=== PATIENT | female | born 1965 | race Caucasian/White ===

== ENCOUNTER → 2019-05-20 10:13 | Outpatient (CLI) | payer OTHER, MEDICARE, SELFPAY ==
--- NOTE | ~2019-05-20 | CT_ITS ---
EXAMINATION: CT sinus wo con DATE: 05/20/2019 10:45 INDICATION: Acute pansinusitis TECHNIQUE: Computed tomography (CT) of the paranasal sinuses was performed without intravenous contra st. The dose-length product (DLP) was 255.24 mGy-cm. Iterative reconstruction was used. COMPARISON: None FINDINGS: There is normal development and pneumatization of the paranasal sinuses. There is mild muco demetrice thickening of the maxillary sinuses, the left sphenoid sinus, and the left anterior ethmoidal air cells. There are bilateral susana bullosae with internal opacification on the left. The bilateral os tiomeatal complexes are patent. Visualized soft tissues are unremarkable. There is moderate to severe spondylosis at C1-2. IMPRESSION: 1. Mild mucosal thickening of the maxillary sinuses, left sphenoid sinus, and left anterior ethmoid a ir cells. 2. Bilateral susana bullosae with internal calcification on the left. Reviewed, dictated and finalized at location A. [employer] IMPRESSION: 1. Mild mucosal thickening of the maxillary sinuses, left sphenoid sinus, and l eft anterior ethmoid air cells. 2. Bilateral susana bullosae with internal calcification on the left.
== END ==
PROVIDERS: Visit Provider Otolaryngology
DX: J01.41 Acute recurrent pansinusitis (principal); R91.8 Other nonspecific abnormal finding of lung field
CPT/HCPCS: 70486

== ENCOUNTER 2020-01-26 01:36 | Outpatient (CLI) | payer MEDICARE, OTHER, SELFPAY ==
[2020-01-27 03:00] LABS: SARS-CoV-2 RNA PCR Negative
== END 2020-01-26 01:37 | disposition home or self-care (01) ==
LOC: ANHCOVIDDT 01:36
PROVIDERS: PCP Internal Medicine; Visit Provider Internal Medicine Gastroenterology
DX: Z01.812 Encounter for preprocedural laboratory examination (principal); Z20.828 Contact with and (suspected) exposure to other viral communicable diseases
CPT/HCPCS: 87635; C9803; U0003

== ENCOUNTER 2020-01-28 01:33 | Day surgery (SDC) | payer MEDICARE, OTHER, SELFPAY ==
[2020-01-24 14:06] VITALS: BMI 39.5
[2020-01-28 09:43] VITALS: BP 154/83; PULSE 91; RESP 18; TEMP 36.3; O2SAT 94
--- NOTE | 2020-01-28 09:54 | WPDGICN ---
Assessment and Plan Assessment and plan (1) Dysphagia: Code(s): R13.10 - Dysphagia, unspecified Status: Acute Assessment and Plan: Patient with ongoing difficulty swallowing. Plan is for EGD to assess more thoroughly. This report follow separately . separate prep limitations will be given subsequently. (2) Morbid obesity with BMI of 40.0-44.9, adult: Code(s): E66.01 - Morbid (severe) obesity due to excess calories; Z68.41 - Body mass index [BMI]40.0-44.9, adult Status: Acute (3) Type 2 diabetes mellitus with hyperglycemia: Code(s): E11.65 - Type 2 diabetes mellitus with hyperglycemia Status: Acute GI Consult Note Consult date/time: 01/28/20 09:54 HPI: Heavenly Su is a 54 year old female seen in evaluation at the request of Dr. Mcelroy. Patient complains of difficulty swallowing. She has a history of sinusitis associated with cough over the last 2 years. She occasionally will cause her voice to be lost. She states that food will catch in the mid substernal portion of the chest. Solids more so than liquids. This is occurred over the last 2 years. She denies any weight loss or bleeding. She denies any history of heartburn. In the past been treated for diabetes. Family history is noncontributory. [facility] Family History Family History Mother Hypertension Family history of rheumatoid arthritis Cerebrovascular accident, Onset Age: 55 Social History Social History Smoking status: Never smoker Alcohol intake: never Substance use: never Substance use type: does not use Living arrangements: with family Gender identity (if verbalized by the patient): Female Sexual Orientation (if Verbalized by the Patient): Straight or Heterosexual Spiritual care concerns: No Meds Home Medications and Allergies Home Medications Medication Instructions Recorded Confirmed Type insulin lispro 100 unit/mL 1 sliding scale dose SUB-Q 03/26/19 01/24/20 History subcutaneous cartridge USEASDIRECTD albuterol sulfate 90 mcg/actuation 2 puff INHALATION Q4H PRN #8.5 gm 04/15/19 01/24/20 Rx aerosol inhaler insulin glargine U-300 conc 300 56 unit SUB-Q DAILY ml 05/05/19 01/24/20 History unit/mL (3 mL) subcutaneous pen amlodipine 10 mg tablet 10 mg PO DAILY #90 tablet 06/21/19 01/24/20 Rx simvastatin 10 mg tablet 10 mg PO DAILY #90 tablet 06/21/19 01/24/20 Rx metformin 1,000 mg tablet 1,000 mg PO BID #180 tablet 08/30/19 01/24/20 Rx fluticasone 250 mcg-salmeterol 50 1 inhalation INHALATION BID #60 09/16/19 01/24/20 Rx mcg/dose blistr powdr for each inhalation glimepiride 4 mg tablet 4 mg PO BID #180 tablet 09/29/19 01/24/20 Rx dapagliflozin [Farxiga] 5 mg PO DAILY 01/24/20 01/24/20 History exenatide microspheres [Bydureon] 2 mg SUBCUT WEEKLY 01/24/20 01/28/20 History ibuprofen 800 mg PO TID PRN 01/24/20 01/24/20 History Allergies Allergy/AdvReac Type Severity Reaction Status Date / Time cefuroxime Allergy Unknown Joint pain Verified 01/28/20 09:41 CEFUROXIME AXETIL AdvReac Mild Joint Pain Uncoded 01/28/20 09:41 Vital Signs Vital Signs - 24 hr 01/28/20 09:43 Temperature 97.3 F L Pulse Rate 91 Respiratory Rate 18 Blood Pressure 154/83 H Pulse Oximetry 94 Exam Narrative: Exam Narrative: Physical exam reveals her to be alert. Vital signs stable. HEENT exam unremarkable. She is anicteric. Lungs are clear to auscultation and percussion. Heart without murmur. Abdomen is obese. Bowel sounds are present soft no localized tenderness. No masses noted. Digital external rectal exam normal.
[2020-01-28] MEDS: LACTATED RINGERS 1,000 ML 150 ML IV CONT (10:03)
--- NOTE | 2020-01-28 10:03 | WPDANESEPPF ---
Anes - Initial Pre Proc Eval Procedure: Operation Date: 01/28/20 10:30 Proposed Procedures p Esophagogastroduodenoscopy - Giovanny Nguyen MD Date/Time: 01/28/20 10:03 Surgeon: Giovanny Nguyen MD Pre Op Diagnosis: Dysphagia Patient Data Age: 54 Gender: F Height: 5 ft 4 in Weight: 108 kg Last Vital Signs Temp 36.3 C L 01/28/20 09:43 Pulse 91 01/28/20 09:43 Resp 18 01/28/20 09:43 BP 154/83 H 01/28/20 09:43 Pulse Ox 94 01/28/20 09:43 Allergies Allergy/AdvReac Type Severity Reaction Status Date / Time cefuroxime Allergy Unknown Joint pain Verified 01/28/20 09:41 CEFUROXIME AXETIL AdvReac Mild Joint Pain Uncoded 01/28/20 09:41 Home Medications Medication Instructions Recorded Confirmed Type insulin lispro 100 unit/mL 1 sliding scale dose SUB-Q 03/26/19 01/24/20 History subcutaneous cartridge USEASDIRECTD albuterol sulfate 90 mcg/actuation 2 puff INHALATION Q4H PRN #8.5 gm 04/15/19 01/24/20 Rx aerosol inhaler insulin glargine U-300 conc 300 56 unit SUB-Q DAILY ml 05/05/19 01/24/20 History unit/mL (3 mL) subcutaneous pen amlodipine 10 mg tablet 10 mg PO DAILY #90 tablet 06/21/19 01/24/20 Rx simvastatin 10 mg tablet 10 mg PO DAILY #90 tablet 06/21/19 01/24/20 Rx metformin 1,000 mg tablet 1,000 mg PO BID #180 tablet 08/30/19 01/24/20 Rx fluticasone 250 mcg-salmeterol 50 1 inhalation INHALATION BID #60 09/16/19 01/24/20 Rx mcg/dose blistr powdr for each inhalation glimepiride 4 mg tablet 4 mg PO BID #180 tablet 09/29/19 01/24/20 Rx dapagliflozin [Farxiga] 5 mg PO DAILY 01/24/20 01/24/20 History exenatide microspheres [Bydureon] 2 mg SUBCUT WEEKLY 01/24/20 01/28/20 History ibuprofen 800 mg PO TID PRN 01/24/20 01/24/20 History Patient hx anesthesia problems: none Family hx anesthesia problems: none PMFSH Family History Family History Mother Hypertension Family history of rheumatoid arthritis Cerebrovascular accident, Onset Age: 55 Social History Social History Smoking status: Never smoker Alcohol intake: never Substance use: never Substance use type: does not use Living arrangements: with family Gender identity (if verbalized by the patient): Female Sexual Orientation (if Verbalized by the Patient): Straight or Heterosexual Spiritual care concerns: No Anes - Eval Final PreProcedure Day of Procedure 01/28/20 10:03 Patient weight: morbidly obese Heart: regular rate and rhythm Lungs: clear to auscultation Airway: Mallampati scale class II Neurological: alert and oriented Last oral intake: >/= 8 hours ASA classification: III Emergent: no Anesthetic plan: proceed Anesthesia type and monitoring: general GIVS and standard monitoring Informed Consent: The patient's anesthetic plan and its attendant risks and benefits were discussed with the patient/family/POA. Questions were solicited and answers provided to the satisfaction of the patient/family/POA.
[2020-01-28 10:04] LABS: Glucose Point of Care 147 (65-105)
[2020-01-28 10:55] VITALS: BP 126/70; PULSE 79; RESP 21; O2SAT 99
[2020-01-28 11:05] VITALS: BP 120/75; PULSE 83; RESP 19; O2SAT 96
[2020-01-28 11:15] VITALS: BP 135/83; PULSE 82; RESP 16; O2SAT 96
[2020-01-28 11:28] LABS: Glucose Point of Care 117 (65-105)
== END 2020-01-28 11:36 | disposition home or self-care (01) ==
PROVIDERS: PCP Internal Medicine; Visit Provider Internal Medicine Gastroenterology
PROC: 0DJ08ZZ Inspection of Upper Intestinal Tract, Via Natural or Artificial Opening Endoscopic (ICD-10-PCS; CPT 43235; principal; 2020-01-28 10:30)
DX: R13.10 Dysphagia, unspecified (principal); E66.01 Morbid (severe) obesity due to excess calories; E11.65 Type 2 diabetes mellitus with hyperglycemia
CPT/HCPCS: 43235; J2704; J7120

== ENCOUNTER 2020-02-09 07:28 | Outpatient (CLI) | payer MEDICARE, OTHER, SELFPAY ==
--- NOTE | ~2020-02-09 | XR_ITS ---
EXAMINATION: XR barium swallow modified DATE: 02/09/2020 08:28 INDICATION: Dysphagia. TECHNIQUE: The patient was given barium-containing material of multiple consistencies to swallow by t gonzalo speech pathologist while I performed fluoroscopy. Fluoroscopy exposure time was 1.2 minutes. The n umber of fluoroscopy images saved to the PACS was 1. Dose-area product was 0.825 Gy-cm^2. FINDINGS: There was no laryngeal penetration or aspiration. IMPRESSION: 1. No laryngeal penetration or aspiration. 2. Please refer to the speech therapy report for recommendations. Reviewed, dictated and finalized at location A. [employer] OPERATOR
--- NOTE | 2020-02-09 08:48 | STOPEVAL ---
MODIFIED BARIUM SWALLOW EVALUATION: Thank you for referring Heavenly Su to [facility].? Attending Provider: Giovanny Nguyen MD * Outpatient Evaluation Start: 02/09/20 08:41 Status: Active Protocol: Document 02/09/20 08:42 BECHERERT (Rec: 02/09/20 08:48 BECHERERT [email or web address]) Therapy Assessment Status Assessment Status Assessment Status Evaluation Outpatient Past Medical History Past Medical History Source of Past Medical History Patient Neurological History Hx Neurological Disorders No Significant History Cardiovascular History Hx Hypercholesterolemia Yes Hx Hypertension Yes Respiratory History Hx Asthma Yes Hx Pneumonia Yes: not recent Gastrointestinal History Hx Gastroesophageal Reflux Disease Yes: ENT rx'd omeprazole Genitourinary History Hx Genitourinary Disorders No Significant History Musculoskeletal History Hx Joint Replacement Yes: BILAT KNEES 2019 Hematological History Hx Hematological Disorders No Significant History Endocrine History Hx Diabetes Yes HEENT History Hx HEENT Disorders No Significant History Integumentary History Hx Skin Disorders No Significant History Reproductive History Hx Reproductive Disorders No Significant History Psychosocial History Hx Psychiatric Disorders No Significant History Pain History History of Any Previous or Ongoing No Significant History Instance of Pain Anesthesia History Hx Anesthesia Reactions No Significant History Pain Assessment Timing of Pain Assessment Timing of Pain Assessment Assessment Self Report Self Report Pain Level 0 Pain Score Pain Score 0: Self Report Modified Barium Swallow Evaluation Recent Swallowing History Reports Dysphagia Yes: choking and solids get stuck Other Factors Impacting Dysphagia None Reported Difficult Consistencies Thin Liquids,Solids Intake Method Prior to Swallow Oral Evaluation Diet Prior to Swallow Evaluation Regular, Level 7 Liquid Consistency Prior to Swallow Thin (0) Evaluation Consistency Thin Uncontrolled 2 Method of Presentation Straw Oral Preparatory Symptoms None Oral Phase Symptoms None Pharyngeal Phase Symptoms Within Functional Limits,Bony Protuberance Severity of Vallecular Residue None - 0% No Residue Severity of Pyriform Sinus Residue None - 0% No Residue 8 Point Laryngeal Penetration-Aspiration Material Does Not Enter Airway Scale Pharyngeal Phase Comments small cervical osteophytes: without effect Cervical/Esophageal Symptoms Within Functional Limits Thin Uncontrolled 1 Method of Presentatio
== END 2020-02-09 07:29 | disposition home or self-care (01) ==
PROVIDERS: PCP Internal Medicine; Visit Provider Internal Medicine Gastroenterology
DX: R13.10 Dysphagia, unspecified (principal)
CPT/HCPCS: 92611

== ENCOUNTER → 2020-12-21 11:24 | Outpatient (CLI) | payer MEDICARE, OTHER, SELFPAY ==
--- NOTE | ~2020-12-21 | XR_ITS ---
XR hip RT 2V w AP pelvis DATE: 12/21/2020 12:00 INDICATION: Right hip pain TECHNIQUE: AP pelvis. AP, lateral and crosstable lateral views of right hip COMPARISON: None FINDINGS: Diffuse osteopenia. Degenerative disc disease at L4-5 and L5-S1. The pubic symphysis and sacroiliac joints are intact. No pelvic fracture or bone destruction is detected. No fracture or dislocation, avascular necrosis or bone destruction of the right hip. IMPRESSION: Osteopenia No pelvic or right hip fracture Degenerative disc disease at L4-5 and L5-S1 Reviewed, dictated and finalized at location B.
== END ==
PROVIDERS: PCP Internal Medicine; Visit Provider Internal Medicine
DX: R10.31 Right lower quadrant pain (principal); M85.89 Other specified disorders of bone density and structure, multiple sites; M51.36 Other intervertebral disc degeneration, lumbar region
CPT/HCPCS: 73502

== ENCOUNTER → 2021-01-08 07:42 | Outpatient (CLI) | payer MEDICARE, OTHER, SELFPAY ==
--- NOTE | ~2021-01-08 | MR_ITS ---
EXAMINATION: MR hip RT wo con DATE: 01/08/2021 09:48 INDICATION: Right hip and groin pain TECHNIQUE: Magnetic resonance imaging (MRI) of the right hip was performed without intravenous contr ast. Sequences included full-field axial PD-weighted FS FSE and T1-weighted FSE, coronal of the pelvi s with PD-weighted FS FSE, small field of view of the right hip with axial PD-weighted FS FSE, sagit rodriguez PD-weighted FS FSE and coronal PD weighted FS FSE. Additional radial T1-weighted FGR oriented ort hogonal to the acetabular rim were obtained for evaluation of the labrum. COMPARISON: Right hip radiographs dated 12/21/2020 FINDINGS: Bones/labrum/cartilage: Alignment is normal. No avascular necrosis or pathologic marrow replacing process. There is marrow e migue surrounding a low signal intensity incomplete insufficiency fracture line at the medial aspect o f the proximal right femur at the inferior margin of the lesser trochanter. No other fractures identi fied. Evaluation of the labrum and cartilage is limited due to poor ocugvf-ss-giwof on the small fiel d-of-view images likely resulting from coil positioning related to patient body habitus. There appear s to be some joint space narrowing with nonuniform partial thickness cartilage loss consistent with l ikely mild to moderate osteoarthritis at the right hip. Mild subarticular cystic changes are seen at the superolateral aspect of the femoral head. Mild lumbar spondylosis. Fluid: Symmetric physiologic amount of fluid within both hip joints. Soft tissues: No asymmetric muscular atrophy in the pelvis and visualized proximal thighs. There is increased fluid signal consistent with left gluteus medius bursitis and bilateral ischial bursitis, left greater robina n right. Mild tendinopathy of the bilateral gluteal and proximal hamstring tendons without discrete t ears. The bilateral iliopsoas tendons are normal.. Limited evaluation of visceral organs of the pelvi s is unremarkable. No pathologically enlarged pelvic/inguinal lymphadenopathy. IMPRESSION: 1. Nondisplaced, incomplete likely insufficiency fracture at the medial aspect of the subtrochanteric proximal right femur. 2. Mild to moderate right hip osteoarthritis. Assessment of the cartilage is limited and of the labru m essentially nondiagnostic due to poor tqxjks-fj-gmiwy on the small pxupz-qe-sllo images which is re lated to patient body habitus 3. Mild left gluteus medius bursitis and bilateral ischial bursitis with mild tendinopathy without di screte tears at the bilateral gluteal and proximal hamstring tendons. Reviewed, dictated and finalized at location A. IMPRESSION: 1. Nondisplaced, incomplete likely insufficiency fracture at the medial aspect of the subtrochanteric proximal right femur. 2. Mild to moderate right hip osteoarthritis. Assessment of the cartilage is li mited and of the labrum essentially nondiagnostic due to poor nivzga-ad-hpnwr o n the small cwtlb-vr-qpzk images which is related to patient body habitus 3. Mild left gluteus medius bursitis and bilateral ischial bursitis with mild t endinopathy without discrete tears at the bilateral gluteal and proximal hamstr ing tendons.
== END ==
PROVIDERS: PCP Internal Medicine; Visit Provider Internal Medicine
DX: M16.11 Unilateral primary osteoarthritis, right hip (principal)
CPT/HCPCS: 73721

== ENCOUNTER → 2021-03-31 08:26 | Outpatient (CLI) | payer MEDICARE, OTHER, SELFPAY ==
[2021-04-01 16:24] LABS: SARS-CoV-2 RNA PCR Negative
== END ==
PROVIDERS: PCP Internal Medicine; Visit Provider Internal Medicine
DX: R68.89 Other general symptoms and signs (principal); Z20.822 Contact with and (suspected) exposure to COVID-19
CPT/HCPCS: C9803; U0003; U0005

== ENCOUNTER → 2021-06-18 08:56 | Outpatient (CLI) | payer MEDICARE, OTHER, SELFPAY ==
[2021-06-18 11:35] LABS: Influenza A QL RT-PCR Negative (Negative); Influenza B QL RT-PCR Negative (Negative); SARS-CoV-2 RNA PCR Negative
== END ==
PROVIDERS: PCP Internal Medicine; Visit Provider Internal Medicine
DX: R68.89 Other general symptoms and signs (principal); R05.9 Cough, unspecified; Z20.822 Contact with and (suspected) exposure to COVID-19
CPT/HCPCS: 87502; C9803; U0003; U0005

== ENCOUNTER → 2021-09-25 13:20 | Outpatient (CLI) | payer MEDICARE, OTHER, SELFPAY ==
--- NOTE | ~2021-09-25 | DEXA_ITS ---
Bone Density Report Name: MAGO MABRY Age: 55 Sex: Female Ethnicity: White Date of : 1965 Indication: postmenopausal; screening for osteoporosis; prior fracture; asthma or emphysema; Referring Provider: BRITTNEY MALDONADO Study: Bone densitometry was performed. Exam Date: September 25, 2021 Accession number: [id number] Bone Density: Region BMD T-score Z-score Classification AP Spine (L1-L4) 1.079 0.3 1.5 Normal Femoral Neck (Left) 0.717 -1.2 0.0 Osteopenia Total Hip (Left) 0.796 -1.2 -0.4 Osteopenia Femoral Neck (Right) 0.677 -1.6 -0.4 Osteopenia Total Hip (Right) 0.754 -1.5 -0.7 Osteopenia Total Hip Mean 0.775 -1.4 -0.6 Osteopenia World Health Organization criteria for BMD impression classify patients as: Normal (T-score at or above -1.0), Osteopenia (T-score between -1.0 and -2.5), or Osteoporosis (T-score at or below -2.5). 10-year Fracture Risk: FRAX not reported because: Prior hip or vertebral fracture Clinical Information Provided by Patient: Have had a previous hip or vertebral fracture Has had a low trauma fracture Has used the following medications: Calcium, MTV Has the following medical conditions: Asthma or Emphysema Patient maximum height was 64 Menopause Age: 44 No regular weight bearing exercise Drinks caffeinated beverages Onset of menses at age 8 Number of children 3 Impression: The patient has low bone mass, based on the Right Femoral Neck T-score. The patient has risk factors, including: previous fracture. Discussion: INCREASED RISK OF FRACTURE DUE TO HISTORY OF FRACTURE. The patient's previous fracture puts the patient at high risk of a future fracture. In untreated patients, the risk of osteoporotic fracture increases approximately two-fold for each 1.0 SD decrease in T-score. Low bone density is not the only risk factor for fracture; also consider factors such as patient's age, frailty or poor health, risk of falling, risk of injury, previous osteoporotic fracture, family history of osteoporosis, cigarette smoking, low body weight, etc. Not everyone with a low trauma fracture has osteoporosis; osteomalacia and other metabolic bone disorders should also be considered. Patients who have osteoporosis should be evaluated for specific diseases and conditions (secondary causes) that may cause or contribute to bone loss and fracture risk. National Osteoporosis Foundation (NOF) recommends pharmacologic intervention for patients with a prior hip or vertebral fracture regardless of BMD T-score. The patient should follow a healthful lifestyle (good nutrition with adequate calcium and vitamin D, and appropriate weight-bearing exercise). Follow-Up: Consider a repeat BMD and Vertebral Fracture Assessment (VFA) exam in 2 years or sooner if medically necessary, to reassess this patient's status
== END ==
PROVIDERS: PCP Internal Medicine; Visit Provider Internal Medicine
DX: Z78.0 Asymptomatic menopausal state (principal); Z87.81 Personal history of (healed) traumatic fracture; M85.852 Other specified disorders of bone density and structure, left thigh; M85.851 Other specified disorders of bone density and structure, right thigh
CPT/HCPCS: 77080

== ENCOUNTER 2022-04-18 01:42 | Day surgery (SDC) | payer MEDICARE, OTHER, SELFPAY ==
[2022-04-03 13:45] VITALS: BMI 43.1
[2022-04-18 06:40] VITALS: BP 130/74; PULSE 93; RESP 16; TEMP 36.1; O2SAT 96; BMI 42.9
[2022-04-18 07:04] LABS: Glucose Point of Care 198 mg/dl (65-105)
[2022-04-18] MEDS: LACTATED RINGERS 1,000 ML 150 ML IV CONT (07:12)
--- NOTE | 2022-04-18 07:23 | PM.HPGS ---
History of Present Illness History of Present Illness Consent: Risks, benefits, and alternatives have been discussed and questions answered. Patient agrees to proceed with procedure. Chief complaint: neoplasm screening Narrative: Heavenly Su is a 56 year old female Presents for screening colonoscopy. Patient's current weight appetite and bowel movements are normal. Patient denies abdominal pain. She has had no bleeding. Family history is noncontributory. Review of Systems Review of Systems: Review of systems noncontributory. PMFSH Past Medical History Medical History DJD of left shoulder Family History Family History Mother Hypertension Family history of rheumatoid arthritis Cerebrovascular accident, Onset Age: 55 Social History Social History Smoking status: Never smoker Alcohol intake: never Substance use: never Substance use type: does not use Lack of Transportation: No Lack of Food: Never True Current Housing: I Have Housing Concerned About Future Housing: Decline to Answer Difficulty Paying Gas/Electric Bills: Decline to Answer Difficulty Paying for Meds: Decline to Answer Currently Unemployed: Decline to Answer Education: Decline to Answer Difficulty w/ Childcare or Family Care: Decline to Answer Living arrangements: with family Gender identity (if verbalized by the patient): Female Sexual Orientation (if Verbalized by the Patient): Straight or Heterosexual Spiritual care concerns: No Meds Home Medications and Allergies Home Medications Medication Instructions Recorded Confirmed Type insulin lispro 100 unit/mL 1 sliding scale dose subcut 03/26/19 04/18/22 History subcutaneous cartridge (Humalog USEASDIRECTD U-100 Insulin) albuterol sulfate 90 mcg/actuation 2 puff inhalation Q4H PRN 04/15/19 04/18/22 Rx aerosol inhaler (ProAir HFA) shortness of breath or wheezing #8.5 grams dapagliflozin 5 mg tablet (Farxiga) 5 mg PO DAILY 01/24/20 04/18/22 History exenatide microspheres 2 mg/0.65 2 mg subcut WEEKLY 01/24/20 04/18/22 History mL subcutaneous pen injector (Bydureon) fluticasone 250 mcg-salmeterol 50 1 inh inhalation BID #60 ea 03/22/21 04/18/22 Rx mcg/dose blistr powdr for inhalation (Advair Diskus) metformin 1,000 mg tablet 1,000 mg PO BID #180 tabs 05/16/21 04/18/22 Rx amlodipine 10 mg tablet 10 mg PO DAILY #90 tabs 05/21/21 04/18/22 Rx simvastatin 10 mg tablet 10 mg PO DAILY #90 tabs 12/18/21 04/18/22 Rx citalopram 40 mg tablet 40 mg PO DAILY #90 tabs 03/04/22 04/18/22 Rx insulin glargine U-300 conc 300 70 unit subcut DAILY 03/29/22 04/18/22 History unit/mL (3 mL) subcutaneous pen (Toujeo Max U-300 SoloStar) aspirin 81 mg tablet,delayed 81 mg PO DAILY 04/03/22 04/18/22 History release ibuprofen 800 mg tablet 800 mg PO TID PRN Pain #270 tabs 04/09/22 04/18/22 Rx Allergies Allergy/AdvReac Type Severity Reaction Status Date / Time cefuroxime Allergy Unknown Joint pain Verified 04/18/22 06:39 Vital Signs Vital Signs - 24 hr 04/18/22 06:40 Temperature 96.9 F L Pulse Rate 93 Respiratory Rate 16 Blood Pressure 130/74 Pulse Oximetry 96 Oxygen Delivery Room Air Exam Narrative: Physical exam reveals patient to be alert. Vital signs stable. HEENT exam is unremarkable. Patient is anicteric. Lungs are clear to auscultation and percussion. Heart is without murmur or extra sounds. Abdomen Is obese. bowel sounds are present soft nontender with no organomegaly. Digital external rectal exam is normal. Assessment and Plan Assessment and plan (1) Encounter for screening colonoscopy: Code(s): Z12.11 - Encounter for screening for malignant neoplasm of colon Status: Acute Assessment and Plan: Patient presents t
--- NOTE | 2022-04-18 07:28 | WPDANESEPPF ---
Anes - Initial Pre Proc Eval Procedure: Operation Date: 04/18/22 08:00 Proposed Procedures p Screening Colonoscopy - Giovanny Nguyen MD Date/Time: 04/18/22 07:28 Surgeon: Giovanny Nguyen MD Pre Op Diagnosis: neoplasm screening Patient Data Age: 56 Gender: F Height: 1.63 m Weight: 113.4 kg Last Vital Signs Temp 96.9 F L 04/18/22 06:40 Pulse 93 04/18/22 06:40 Resp 16 04/18/22 06:40 BP 130/74 04/18/22 06:40 Pulse Ox 96 04/18/22 06:40 O2 Del Method Room Air 04/18/22 06:40 Allergies Allergy/AdvReac Type Severity Reaction Status Date / Time cefuroxime Allergy Unknown Joint pain Verified 04/18/22 06:39 Home Medications Medication Instructions Recorded Confirmed Type insulin lispro 100 unit/mL 1 sliding scale dose subcut 03/26/19 04/18/22 History subcutaneous cartridge (Humalog USEASDIRECTD U-100 Insulin) albuterol sulfate 90 mcg/actuation 2 puff inhalation Q4H PRN 04/15/19 04/18/22 Rx aerosol inhaler (ProAir HFA) shortness of breath or wheezing #8.5 grams dapagliflozin 5 mg tablet (Farxiga) 5 mg PO DAILY 01/24/20 04/18/22 History exenatide microspheres 2 mg/0.65 2 mg subcut WEEKLY 01/24/20 04/18/22 History mL subcutaneous pen injector (Bydureon) fluticasone 250 mcg-salmeterol 50 1 inh inhalation BID #60 ea 03/22/21 04/18/22 Rx mcg/dose blistr powdr for inhalation (Advair Diskus) metformin 1,000 mg tablet 1,000 mg PO BID #180 tabs 05/16/21 04/18/22 Rx amlodipine 10 mg tablet 10 mg PO DAILY #90 tabs 05/21/21 04/18/22 Rx simvastatin 10 mg tablet 10 mg PO DAILY #90 tabs 12/18/21 04/18/22 Rx citalopram 40 mg tablet 40 mg PO DAILY #90 tabs 03/04/22 04/18/22 Rx insulin glargine U-300 conc 300 70 unit subcut DAILY 03/29/22 04/18/22 History unit/mL (3 mL) subcutaneous pen (Toujeo Max U-300 SoloStar) aspirin 81 mg tablet,delayed 81 mg PO DAILY 04/03/22 04/18/22 History release ibuprofen 800 mg tablet 800 mg PO TID PRN Pain #270 tabs 04/09/22 04/18/22 Rx Laboratory Tests 04/18/22 07:01 POC Capillary Glucose 198 mg/dl H mg/dl (65-105) Patient hx anesthesia problems: none Family hx anesthesia problems: none Results Review: All pre-operative results and documents have been reviewed as part of the pre-operative evaluation. PMFSH Past Medical History Medical History DJD of left shoulder Family History Family History Mother Hypertension Family history of rheumatoid arthritis Cerebrovascular accident, Onset Age: 55 Social History Social History Smoking status: Never smoker Alcohol intake: never Substance use: never Substance use type: does not use Lack of Transportation: No Lack of Food: Never True Current Housing: I Have Housing Concerned About Future Housing: Decline to Answer Difficulty Paying Gas/Electric Bills: Decline to Answer Difficulty Paying for Meds: Decline to Answer Currently Unemployed: Decline to Answer Education: Decline to Answer Difficulty w/ Childcare or Family Care: Decline to Answer Living arrangements: with family Gender identity (if verbalized by the patient): Female Sexual Orientation (if Verbalized by the Patient): Straight or Heterosexual Spiritual care concerns: No Anes - Eval Final PreProcedure Day of Procedure 04/18/22 07:28 Patient weight: morbidly obese Heart: regular rate and rhythm Lungs: clear to auscultation Airway: Mallampati scale class II Neurological: alert and oriented Last oral intake: >/= 8 hours ASA classification: III Emergent: no Anesthetic plan: proceed Anesthesia type and monitoring: general GIVS and standard monitoring Results Review: All pre-operative results and documents have been reviewed as part of the pre-operative evaluation. Informed Consent: The patient'
[2022-04-18] MEDS: SIMETHICONE ORAL SUSPENSION 20 MG/0.3 ML 30 ML BOTTLE 0.6 ML IRRIGATION (07:59)
[2022-04-18 08:17] VITALS: BP 135/61; PULSE 83; RESP 24; O2SAT 96
[2022-04-18 08:27] VITALS: BP 138/69; PULSE 86; RESP 17; O2SAT 96
[2022-04-18 08:31] LABS: Glucose Point of Care 181 mg/dl (65-105)
[2022-04-18 08:37] VITALS: BP 135/73; PULSE 82; RESP 23; O2SAT 96
== END 2022-04-18 08:47 | disposition home or self-care (01) ==
PROVIDERS: PCP Family Medicine; Visit Provider Internal Medicine Gastroenterology
PROC: 0DJD8ZZ Inspection of Lower Intestinal Tract, Via Natural or Artificial Opening Endoscopic (ICD-10-PCS; CPT 45378; principal; 2022-04-18 08:00)
DX: Z12.11 Encounter for screening for malignant neoplasm of colon (principal); D12.2 Benign neoplasm of ascending colon; Z79.51 Long term (current) use of inhaled steroids; Z79.4 Long term (current) use of insulin; Z79.84 Long term (current) use of oral hypoglycemic drugs; Z79.82 Long term (current) use of aspirin; E66.01 Morbid (severe) obesity due to excess calories; Z68.41 Body mass index [BMI] 40.0-44.9, adult
CPT/HCPCS: 45385; 82948; 88305; J2704; J7120

== ENCOUNTER 2022-04-19 13:50 | Outpatient (CLI) | payer MEDICARE, OTHER, SELFPAY ==
--- NOTE | ~2022-04-19 | MM_ITS ---
EXAMINATION: MM screening jose d BI w roberto carlos HISTORY: Screening TECHNIQUE: Craniocaudal and mediolateral oblique 3-D tomosynthesis images were obtained and synthetic 2-D images were generated. CAD analysis was submitted and interpreted. COMPARISON: No prior mammogram is available for comparison at this institution. BREAST PARENCHYMAL COMPOSITION: Breast composed of scattered areas of fibroglandular density FINDINGS: There is a benign partially calcified mass in the upper outer quadrant of the right breast. There is a small focal 3 mm mass in the upper outer quadrant of the left breast anteriorly. There ar e no suspicious calcifications or architectural distortion. IMPRESSION: 1. Small 3 mm left breast mass, upper outer quadrant. 2. Additional mammographic views and possible breast ultrasound are recommended. BI-RADS Category 0: Incomplete: Needs additional imaging evaluation. Reviewed, dictated and finalized at location A. NG SCRUBBER IMPRESSION: 1. Small 3 mm left breast mass, upper outer quadrant. 2. Additional mammographic views and possible breast ultrasound are recommended . BI-RADS Category 0: Incomplete: Needs additional imaging evaluation.
== END 2022-04-19 13:51 | disposition home or self-care (01) ==
LOC: ANHIMG 13:52
PROVIDERS: PCP Family Medicine; Visit Provider Family Medicine
DX: Z12.31 Encounter for screening mammogram for malignant neoplasm of breast (principal); R92.8 Other abnormal and inconclusive findings on diagnostic imaging of breast
CPT/HCPCS: 77063; 77067

== ENCOUNTER 2022-05-09 11:14 | Outpatient (CLI) | payer MEDICARE, OTHER, SELFPAY ==
--- NOTE | ~2022-05-09 | MM_ITS ---
EXAMINATION: MM diagnostic jose d LT w roberto carlos HISTORY: 3 mm left breast mass reported in upper outer quadrant on 04/19/2022 screening mammogram TECHNIQUE: Additional full field ML and spot ML O left CC and rolled medial and rolled lateral CC 3-D tomosynthesis images of the left breast were performed and synthetic 2-D images were generated. CAD analysis was submitted and interpreted. COMPARISON: 04/19/2021 bilateral screening mammogram FINDINGS: The previously suggested 3 mm mass is not definitively confirmed on these supplemental view s 6 month follow-up diagnostic left mammogram is recommended. IMPRESSION: 1. No definite reproducible mass 2. 6 month follow-up diagnostic left mammogram is recommended BI-RADS category 3, probably benign findings. Reviewed, dictated and finalized at location A. ELER HEAD
== END 2022-05-09 11:15 | disposition home or self-care (01) ==
PROVIDERS: PCP Family Medicine; Visit Provider Family Medicine
DX: R92.8 Other abnormal and inconclusive findings on diagnostic imaging of breast (principal)
CPT/HCPCS: 77061; 77065; G0279

== ENCOUNTER 2022-11-07 11:38 | Outpatient (CLI) | payer MEDICARE, OTHER, SELFPAY ==
--- NOTE | ~2022-11-07 | MMUS_ITS ---
EXAMINATION: MM diagnostic jose d LT w roberto carlos, US breast LT limited HISTORY: Follow-up left breast asymmetry TECHNIQUE: Additional 3-D tomosynthesis images of the left breast were performed and synthetic 2-D im ages were generated. CAD analysis was submitted and interpreted. High resolution Limited left breast ultrasound was performed. COMPARISON: Comparison to multiple prior studies sequentially, with oldest reviewed study dated 04/19. BREAST PARENCHYMAL COMPOSITION: Breast composition is almost entirely fatty FINDINGS: MAMMOGRAPHIC FINDINGS: There are no suspicious masses, calcifications or architectural distortion in the left breast to sugg est malignancy. ULTRASOUND: Limited left breast ultrasound: Normal heterogeneous echotexture without focal solid or cystic mass. IMPRESSION: 1. No evidence for malignancy in the left breast. 2. Routine yearly screening mammogram and regular clinical breast examination are recommended. BI-RADS Category 1: Negative Reviewed, dictated and finalized at location A. IMPRESSION: 1. No evidence for malignancy in the left breast. 2. Routine yearly screening mammogram and regular clinical breast examination a re recommended. BI-RADS Category 1: Negative
== END 2022-11-07 11:39 | disposition home or self-care (01) ==
LOC: ANHIMG 11:39
PROVIDERS: PCP Family Medicine; Visit Provider Family Medicine
DX: R92.8 Other abnormal and inconclusive findings on diagnostic imaging of breast (principal)
CPT/HCPCS: 76642; 77061; 77065; G0279

== ENCOUNTER 2023-03-28 09:25 | Outpatient (CLI) | payer MEDICARE, OTHER, SELFPAY ==
[2023-03-28 19:45] LABS: Anion Gap 8 mmol/L (8-16); Blood Urea Nitrogen 23 mg/dL (7-17); Calcium 9.5 mg/dL (8.4-10.2); Carbon Dioxide 28 mmol/L (22-30); Chloride 101 mmol/L (98-107); Estimated Glomerular Filt Rate > 60; Glucose 154 mg/dL (65-110); Potassium 4.5 mmol/L (3.4-5.0); Sodium 137 mmol/L (137-145)
== END 2023-03-28 09:26 | disposition home or self-care (01) ==
LOC: ANHGOSHLAB 09:26
PROVIDERS: PCP Family Medicine; Visit Provider Family Medicine
DX: Z13.228 Encounter for screening for other metabolic disorders (principal)
CPT/HCPCS: 36415; 80048

== ENCOUNTER 2023-05-12 06:41 | Outpatient (CLI) | payer MEDICARE, OTHER, SELFPAY ==
--- NOTE | ~2023-05-12 | XR_ITS ---
EXAMINATION: [facility] scan, XR foot LT min 3V DATE: 05/12/2023 14:21 INDICATION: Osteomyelitis at the left great toe COMPARISON: No prior imaging for comparison TECHNIQUE: 1. 20 mCi mCi Tc-99m Ceretec was administered intravenously. Delayed scintigrams of the bilateral fee t and ankles were obtained in the dorsal, plantar and left and right projections. 2. Dorsal plantar, lateral and 2 oblique views of the left foot and a cone-down lateral view of the l eft great toe were obtained FINDINGS: There is increased uptake in the region of the left great toe on the scintigraphic images. Minimally displaced comminuted intra-articular fracture at the base of the left first distal phalanx on the daren in radiographs. There is increased lucency with suggestion of some osteolysis along the distal side o f the fracture plane which would also be consistent with osteomyelitis. Otherwise normal alignment th roughout the remainder of the foot. No other fractures identified. There is mild polyarticular osteoa rthritis involving multiple joints throughout the left foot. There is soft tissue swelling about the great toe. No soft tissue gas or radiopaque foreign bodies. Moderate-sized plantar calcaneus spur and small enthesopathic ossicle at the proximal plantar aponeurosis. There are photopenic defects on the scintigraphic images of the contralateral right foot in the region of the toes suggesting prior toe amputations. IMPRESSION: 1: Comminuted intra-articular fracture the base of the left first distal phalanx with suggestion of s ome osteolysis along the fracture plane and with corresponding increased Ceretec activity consistent with osteomyelitis. Reviewed, dictated and finalized at location A. [employer] INSTRUCTOR IMPRESSION: 1: Comminuted intra-articular fracture the base of the left first distal phalan x with suggestion of some osteolysis along the fracture plane and with correspo nding increased Ceretec activity consistent with osteomyelitis.
== END 2023-05-12 06:42 | disposition home or self-care (01) ==
PROVIDERS: PCP Family Medicine; Visit Provider Podiatrist Foot & Ankle Surgery
DX: S92.422A Displaced fracture of distal phalanx of left great toe, initial encounter for closed fracture (principal); M86.9 Osteomyelitis, unspecified; X58.XXXA Exposure to other specified factors, initial encounter
CPT/HCPCS: 73630; 78800; A9521

== ENCOUNTER 2023-06-03 08:07 | Outpatient (CLI) | payer MEDICARE, OTHER, SELFPAY ==
[2023-06-03 08:54] LABS: Anion Gap 4 mmol/L (8-16); Blood Urea Nitrogen 28 mg/dL (7-17); Calcium 9.9 mg/dL (8.4-10.2); Carbon Dioxide 31 mmol/L (22-30); Chloride 102 mmol/L (98-107); Estimated Glomerular Filt Rate > 60; Glucose 217 mg/dL (65-110); Potassium 4.8 mmol/L (3.4-5.0); Sodium 137 mmol/L (137-145)
== END 2023-06-03 08:08 | disposition home or self-care (01) ==
PROVIDERS: Anesthesiology; PCP Family Medicine; Visit Provider Podiatrist Foot & Ankle Surgery
DX: E11.65 Type 2 diabetes mellitus with hyperglycemia (principal); Z01.818 Encounter for other preprocedural examination
CPT/HCPCS: 36415; 80048

== ENCOUNTER 2023-06-06 01:08 | Day surgery (SDC) | payer MEDICARE, OTHER, SELFPAY ==
[2023-06-02 12:17] VITALS: BMI 43.2
--- NOTE | 2023-06-02 12:23 | PC.NURSE ---
Report to the Outpatient Waiting Room, entrance under the green pavilion located off [facility], at time 9:30 on date 06/06/23. Planned Procedure Time: 11:30. Time changes happen often and if your time is changed the preop area will call you the afternoon before. - You and your visitor will be asked to self-screen and do not enter if you have any COVID symptoms. - A mask is optional within the hospital at this time. Patients may have clear liquids (water, carbonated beverages, clear teas, apple juice) until 3 hours prior to surgery (8:30) with a maximum of 20 ounces. - No food from midnight until time of surgery Take the following medications with a SIP of water the morning of surgery: INHALER(S), AMLODIPINE, CITALOPRAM, DOXYCYCLINE, 1/2 AM DOSE OF INSULIN PLEASE CALL [phone] FRIDAY MORNING WITH ANY QUESTIONS OR CONCERNS REGARDING BLOOD SUGAR DO NOT STOP ANY OF YOUR OTHER PRESCRIPTION MEDICATIONS PRIOR TO SURGERY ?EXCEPT THE FOLLOWING Medications to discontinue per physician: ASPIRIN, IBUPROFEN Date to take last dose: PER DR. TSAI Please no make-up, nail egyptian, hairspray, perfume, deodorant, or body powder the day of surgery. No jewelry (including any body piercings) or valuables the day of surgery, leave them at home. Please take a shower or bath the night before, or the morning of, surgery with an antibacterial soap. Wear comfortable, loose fitting clothing. - Jewelry must be removed prior to entering the operating room. Rings and piercings that are not removed may be cut off. - The hospital will not accept responsibility for valuables. - Please leave all valuables, including medications, at home the day of surgery. If you are going home after surgery, a licensed sales warehouse driver must drive you home. - NO public transportation without another adult if you receive anesthesia. - We recommend that an adult stay with you for 24 hours following discharge. - We also recommend that you do not drive, make important decision, drink alcoholic beverages, or take any drugs that were not prescribed by your health care provider for at least 24 hours after your discharge time. Follow any additional instructions given to you from your surgeon. If you or anyone in your household have experienced Covid symptoms in the past week, please notify your surgeon or the nurse liaison at the phone number below for possible testing. Telephone instructions given to LORIN FITZGERALD and asked if any additional questions and then verbalized understanding. Patient advised to call surgeon office or pre surgery nurse liaison [phone] if any additional questions.
--- NOTE | 2023-06-05 14:12 | WPDANESEPPF ---
Anes - Initial Pre Proc Eval Procedure: Operation Date: 06/06/23 11:30 Proposed Procedures p Partial Amputation of Left Hallux - Zander Bazzi JR, MD Date/Time: 06/05/23 14:12 Surgeon: Zander Bazzi JR, MD Pre Op Diagnosis: osteomyelitis left hallux Patient Data Age: 57 Gender: F Height: 1.63 m Weight: 114.3 kg Allergies Allergy/AdvReac Type Severity Reaction Status Date / Time cefuroxime Allergy Unknown Joint pain Verified 06/02/23 12:12 Home Medications Medication Instructions Recorded Confirmed Type albuterol sulfate 90 mcg/actuation 2 puff inhalation Q4H PRN 04/15/19 06/02/23 Rx aerosol inhaler (ProAir HFA) shortness of breath or wheezing #8.5 grams dapagliflozin propanediol 5 mg 5 mg PO DAILY 01/24/20 06/06/23 History tablet (Farxiga) citalopram 40 mg tablet 40 mg PO DAILY #90 tabs 03/04/22 06/06/23 Rx insulin glargine U-300 conc 300 40 unit subcut DAILY 03/29/22 06/06/23 History unit/mL (3 mL) subcutaneous pen (Toujeo Max U-300 SoloStar) aspirin 81 mg tablet,delayed 81 mg PO DAILY 04/03/22 06/06/23 History release simvastatin 10 mg tablet 10 mg PO DAILY #90 tabs 10/07/22 06/06/23 Rx ibuprofen 800 mg tablet 800 mg PO TID PRN Pain #270 tabs 01/07/23 06/06/23 Rx doxycycline hyclate 100 mg capsule 100 mg PO BID 06/02/23 06/06/23 History tirzepatide 5 mg/0.5 mL 5 mg subcut WEEKLY 06/02/23 06/06/23 History subcutaneous pen injector (Mounjaro) amlodipine 10 mg tablet 10 mg PO DAILY #90 tabs 06/04/23 06/06/23 Rx insulin lispro-aabc 100 unit/mL See Rx Instructions .Route .COMPLEX 06/06/23 06/06/23 History subcutaneous solution (Lyumjev U-100 Insulin) Patient hx anesthesia problems: post op nausea/vomiting Family hx anesthesia problems: none Results Review: All pre-operative results and documents have been reviewed as part of the pre-operative evaluation. [facility] Past Medical History Medical History (Updated 06/05/23 @ 14:14 by Topher Shaffer DO) Diabetes type 2, controlled DJD of left shoulder GERD (gastroesophageal reflux disease) Hyperlipidemia Hypertension Osteoarthritis Osteomyelitis Right hip pain Family History Family History Mother Hypertension Family history of rheumatoid arthritis Cerebrovascular accident, Onset Age: 55 Social History Social History Smoking status: Never smoker Alcohol intake: never Substance use: never Substance use type: does not use Lack of Transportation: No Lack of Food: Never True Current Housing: I Have Housing Concerned About Future Housing: Decline to Answer Difficulty Paying Gas/Electric Bills: Decline to Answer Difficulty Paying for Meds: Decline to Answer Currently Unemployed: Decline to Answer Education: Decline to Answer Difficulty w/ Childcare or Family Care: Decline to Answer Living arrangements: with family Gender identity (if verbalized by the patient): Female Sexual Orientation (if Verbalized by the Patient): Straight or Heterosexual Spiritual care concerns: No Anes - Eval Final PreProcedure Day of Procedure 06/05/23 14:12 Patient weight: morbidly obese Heart: regular rate and rhythm Lungs: clear to auscultation Airway: Mallampati scale class II Neurological: alert and oriented Last oral intake: >/= 8 hours ASA classification: III Emergent: no Anesthetic plan: proceed Anesthesia type and monitoring: general GIVS and standard monitoring Results Review: All pre-operative results and documents have been reviewed as part of the pre-operative evaluation. Informed Consent: The patient's anesthetic plan and its attendant risks and benefits were discussed with the patient/family/POA. Questions were solicited and answers provided to the satisfaction of the patient/family/POA.
--- NOTE | 2023-06-06 07:14 | WPDHPUPDATE1 ---
History and Physical Update Update Date/Time: 06/06/23 07:14 History and Physical has been reviewed, including an updated exam of the patient. There are NO changes in the patient's condition. Risks, benefits, and alternatives have been discussed and questions answered. Patient agrees to proceed with procedure.
[2023-06-06 09:37] LABS: Glucose Point of Care 160 mg/dl (65-105)
[2023-06-06 09:43] VITALS: BP 149/72; PULSE 83; RESP 14; TEMP 36.1; O2SAT 98
[2023-06-06 09:44] VITALS: BMI 43.1
[2023-06-06] MEDS: LACTATED RINGERS 1,000 ML 30 ML IV CONT (10:17)
[2023-06-06] MEDS: CLINDAMYCIN 600 MG/D5W 50 ML 600 MG/50 ML PIGGYBACK 100 MG IVPB (11:32)
[2023-06-06] MEDS: BUPivacaine HCL 0.5% 10 ML AMP INFILTRATE (11:51)
[2023-06-06] MEDS: LIDOCAINE HCL 2% LOCAL INJ 20 ML VIAL 10 ML INFILTRATE (11:51)
[2023-06-06] MEDS: KETOROLAC 15 MG/ML VIAL (*BKC) IV PUSH (12:00)
--- NOTE | 2023-06-06 12:02 | P.OP_ITS ---
Procedure Note - Detailed Date of Procedure 06/06/23 Pre-op Diagnosis Osteomyelitis left hallux Post-op Diagnosis Same Procedure Performed Partial amputation left hallux Surgeon Zander Bazzi JR, DPM Anesthesia MAC and Local Indications Chronic osteomyelitis left hallux Description of Procedure Under mild sedation, the patient was brought to the operating room, placed on the operating table in the supine position. A pneumatic ankle tourniquet was placed about the patient's ankle. Following general anesthesia, I performed a proximal Delacruz Block about the proximal first metatarsal. The foot was then scrubbed, prepped, and draped in the usual aseptic manner. An Esmarch bandage was then used to examine the patient's foot and pneumatic ankle tourniquet was then inflated. Surgery began in the following manner. Attention was directed to the dorsal distal aspect of the hallux where the patient had an edematous erythematous digit. Two convex converging incisions were made about the interphalangeal joint of the hallux. The incision was continued deep down through the subcutaneous tissues using sharp and blunt dissection. All bleeders were cauterized as necessary. The distal hallux was disarticulated at the interphalangeal joint and sent for g ross and histopathology. Next, I used a sagittal bone saw to resect the distal half of the proximal phalanx. In order to allow function of the base of the proximal phalanx with the tendinous insertions. The distal hallux was sent for gross and histopathology. Discoloaration and dystrophy was noted to the base of the distal phalanx. The remaining bone and tissue was healthy and bleeding. The wound site was then flushed with copious amounts of sterile saline. Next, the periosteum and capsular structures overlying the distal hallux was reapproximated with 3-0 Vicryl. Next, the skin was reapproximated and coapted utilizing 4-0 Prolene in simple and horizontal interrupted suture fashion technique. Upon completion of the procedure, the incision was dressed with Adaptic, 4 x 4's, Kerlix, and Coban. The pneumatic ankle tourniquet was then deflated and a prompt hyperemic response noted to all remaining digits of the foot and the distal aspect of the stump of the partially amputated hallux. A surgical shoe was then applied. The patient did very well with the procedure and the anesthesia. The patient was transferred to the recovery room with vital signs stable and vascular status intact to all remaining toes of the affected foot. Following a period of postoperative monitoring, the patient will be discharged home on the following written and oral postoperative instructions: 1. Keep the dressing clean, dry, and intact. Use a cast protector bag with showers. 2. The patient should use a surgical shoe for ambulation postoperatively. 3. The patient should be on bedrest with bathroom privileges and elevate the affected foot when at rest. 4. The patient to contact Dr. Bazzi for all postop care and if any problems arise. 5. Prescriptions were written for Percocet 5/325 dispensed 40 to be taken 1 p.o. q.4 to 6 hours as needed for severe pain. Estimated Blood Loss 1 Drains No Packing No Pathology Yes Complications No immediate complications Condition Stable Disposition Same day
[2023-06-06 12:13] VITALS: BP 121/68; PULSE 73; RESP 14; O2SAT 94
[2023-06-06 12:37] LABS: Glucose Point of Care 117 mg/dl (65-105)
[2023-06-06 12:40] VITALS: BP 143/68; PULSE 76; RESP 14; O2SAT 97
[2023-06-06 13:10] VITALS: BP 135/68; PULSE 72; RESP 14
--- NOTE | 2023-07-31 13:51 | PM.OP ---
Procedure Note - Brief Procedure Note - Brief Date of procedure: 06/30/23 Diabetic ulceration left second digit with cellulitis secondary to a claw toe deformity Procedure performed: Percutaneous flexor tenotomy second digit left foot Surgeon: Zander Bazzi JR, DPM Findings: Full thickness tissue loss to distal second digit left foot with sagittal plane contrature noted to the second digit Description of procedure: I cleaned the affected area with Betadine. Anesthetized the digit with 2% Lidocaine plain. I utilized a 6100 blade to perform a percutaneous incision along the plantar aspect of the second digit proximal to the proximal interphalangeal joint. I released the long flexor tendon. I reapproximated the incision with 4.0 Prolene in simple interrupted suture fashion technique. Immediate reduction of the contracture noted to the second digit was noted. I dressed with 4x4 gauze, Kerlix roll and skin tape. Implants: None Drains: No Packing: No Pathology: None sent Complications: No immediate complications Condition: Stable
== END 2023-06-06 13:26 | disposition home or self-care (01) ==
PROVIDERS: PCP Family Medicine; Visit Provider Podiatrist Foot & Ankle Surgery
PROC: (CPT 28825; principal; 2023-06-06 11:30)
DX: E11.69 Type 2 diabetes mellitus with other specified complication (principal); M86.672 Other chronic osteomyelitis, left ankle and foot; I10 Essential (primary) hypertension; E78.5 Hyperlipidemia, unspecified; K21.9 Gastro-esophageal reflux disease without esophagitis; E66.01 Morbid (severe) obesity due to excess calories; Z68.41 Body mass index [BMI] 40.0-44.9, adult; Z79.51 Long term (current) use of inhaled steroids; Z79.84 Long term (current) use of oral hypoglycemic drugs; Z79.4 Long term (current) use of insulin; Z79.85 Long-term (current) use of injectable non-insulin antidiabetic drugs
CPT/HCPCS: 28825; 82948; 88305; 88311; J1885; J2250; J3010; J7120

== ENCOUNTER 2023-06-28 16:42 | Inpatient (IN) | payer MEDICARE, OTHER, SELFPAY ==
--- NOTE | ~2023-06-28 | XR_ITS ---
EXAM: XR foot LT min 3V DATE: 06/28/2023 17:32 HISTORY: osteomyelitis?, 2ND TOE SWELLING/REDNESS . COMPARISON: 05/12/2023. FINDINGS: Normal mineralization. Status post partial first toe amputation. No fracture or dislocatio n. No lytic or blastic lesion. Moderate midfoot degenerative changes. Mild Achilles and moderate plan tar enthesopathy. No erosion or periosteal change. Soft tissue swelling over the first toe stump and second digit. IMPRESSION: No acute osseous finding in the left foot. Reviewed, dictated and finalized at location K.
--- NOTE | ~2023-06-28 | US_ITS ---
EXAMINATION: US venous doppler [facility] DATE: 06/28/2023 18:13 INDICATION: edema, post op . TECHNIQUE: Grayscale images without and with compression and Doppler images of the left lower extremi ty veins were obtained. COMPARISON: None FINDINGS: The left common femoral vein, profunda (deep) femoral vein, femoral vein, popliteal vein, peroneal v ein, posterior tibial veins, gastrocnemius vein, and greater saphenous vein are patent. IMPRESSION: Patent left lower extremity veins. No evidence of deep venous thrombosis. Reviewed, dictated and finalized at location K.
[2023-06-28 16:46] VITALS: BP 135/65; PULSE 93; RESP 18; TEMP 36.6; O2SAT 97
--- NOTE | 2023-06-28 17:23 | ED.WOUNDLAC ---
HPI - Wound/Laceration General Chief Complaint: Wound/Laceration <Alma Gordon PA-C - Last Filed: 06/28/23 18:36> Stated Complaint: wound to foot <Alma Gordon PA-C - Last Filed: 06/28/23 18:36> Time Seen by Provider: 06/28/23 17:06 <Alma Gordon PA-C - Last Filed: 06/28/23 18:36> History of Present Illness HPI narrative: 57-year-old female with a history of hypertension, dyslipidemia, insulin-dependent type 2 diabetes presents to emergency department for concerns for Shoaib infection to her right foot. The patient underwent a partial amputation of the left hallux with Dr. Bazzi on 06/06/2023 for chronic osteomyelitis with this area. States she is scheduled to have sutures out of foot in the next couple days, however today when she is changing her dressing she noticed increased inflammation and redness surrounding her great toe and 2nd toe which prompted her to come to the ER. She also states that she has felt feverish the past couple of days including having chills and body aches. She has not recorded her temperature. She reports no swelling in her left leg and her calf with associated redness and pain. States her glucose at home is normally less than 200, however the past few days it has been increased to 270. She denies nausea or vomiting, abdominal pain or other concerning symptoms. <Alma Gordon PA-C - Last Filed: 06/28/23 18:36> Related Data Home Medications: Home Medications Medication Instructions Recorded Confirmed aspirin 81 mg tablet,delayed 81 mg PO DAILY 04/03/22 06/28/23 release doxycycline hyclate 100 mg capsule 100 mg PO BID 06/02/23 06/28/23 tirzepatide 5 mg/0.5 mL 5 mg subcut WEEKLY 06/02/23 06/28/23 subcutaneous pen injector (Mounjaro) insulin lispro-aabc 100 unit/mL See Rx Instructions .Route .COMPLEX 06/06/23 06/28/23 subcutaneous solution (Lyumjev U-100 Insulin) insulin glargine U-300 conc 300 50 unit subcut DAILY 06/28/23 06/28/23 unit/mL (1.5 mL) subcutaneous pen (Toujeo SoloStar U-300 Insulin) <Alma Gordon PA-C - Last Filed: 06/28/23 18:36> Allergies/Adverse Reactions: Allergies Allergy/AdvReac Type Severity Reaction Status Date / Time cefuroxime Allergy Unknown Joint pain Verified 06/28/23 17:13 <Alma Gordon PA-C - Last Filed: 06/28/23 18:36> Review of Systems Review of Systems: CONSTITUTIONAL: Denies fever, chills, or sweats. EYES: Denies visual changes, redness, or discharge. ENT: Denies rhinorrhea, congestion, sore throat, or otalgia. CARDIOVASCULAR: Denies chest pain, palpitations, or edema. RESPIRATORY: Denies cough or dyspnea. GASTROINTESTINAL: Denies abdominal pain, nausea, vomiting, or diarrhea. GENITOURINARY: Denies dysuria or hematuria. SKIN: See HPI MUSCULOSKELETAL: Denies back pain, joint pain, or myalgia. NEUROLOGIC: Denies headache, numbness, or weakness. PSYCHIATRIC: Denies anxiety or depression. <Alma Gordon PA-C - Last Filed: 06/28/23 18:36> [facility] Past Medical History Medical History: Medical History Diabetes type 2, controlled DJD of left shoulder GERD (gastroesophageal reflux disease) Hyperlipidemia Hypertension Osteoarthritis Osteomyelitis Right hip pain <Alma Gordon PA-C - Last Filed: 06/28/23 18:36> Family History Family History: Family History Mother Hypertension Family history of rheumatoid arthritis Cerebrovascular accident, Onset Age: 55 <Alma Gordon PA-C - Last Filed: 06/28/23 18:36> Social History Social History: Social History Smoking status: Never smoker Alcohol intake: never Substance use: never Substance use type: does not use Do You Feel Safe in your Home?: Yes Lack of Transportation: No Lack of Food: Never True Current Housing: I Have Housing Concerned About Future Housing: Decline to Answer Difficulty Paying Gas/Electric Bills: Decline to Answer Difficulty Paying for Meds: Decline to Answer Currently Unemployed: Decline to Answer Education: Decline to Answer Difficulty w/ Childcare or Family Care: Decline to Answer Living arrangements: with family Gender identity (if verbalized by the patient): Female Sexual Orientation (if Verbalized by the Patient): Straight or Heterosexual Spiritual care concerns: No <Alma Gordon PA-C - Last Filed: 06/28/23 18:36> Exam Narrative: GENERAL: Well-appearing, well-nourished, and in no acute distress. HEAD: Normocephalic, atraumatic. EYES: PERRLA and EOMI. ENT: Nares clear, no rhinorrhea or epistaxis. Mucous membranes moist. NECK: Supple. CHEST: Clear to auscultation. No respiratory distress. HEART: Regular rate and rhythm. No murmur heard. Normal peripheral pulses. ABDOMEN: Soft, nontender, nondistended, normal active bowel sounds. EXTREMITIES: LLE: Great toe amputation with stitches in place to the distal aspect of the stump and surrounding healing scabbing. There is erythema and warmth to the proximal great toe and to the 2nd toe with associated edema. There is an open ulceration to the tip of the 2nd toe with purulent drainage. There is 2+ pitting edema to the ankle and calf with tenderness and blanching erythema to the posterior lower leg. There is brawny skin to BLE. Cap refill <2. Sensation intact throughout. SKIN: Warm, dry, no rash. NEURO: No focal deficits. Alert and oriented x3 <Alma Gordon PA-C - Last Filed: 06/28/23 18:36> Course SHEAR OPERATOR HELPER/PA Physician Supervision This visit was performed by both a physician and an APC. I performed all aspects of the MDM as documented. <Kyler Mcgregor MD - Last Filed: 06/28/23 22:13> Vital Signs Vital signs: Vital Signs Temperature 97.8 F 06/28/23 16:46 Pulse Rate 93 06/28/23 16:46 Respiratory Rate 18 06/28/23 16:46 Blood Pressure 135/65 06/28/23 16:46 Pulse Oximetry 97 06/28/23 16:46 Oxygen Delivery Room Air 06/28/23 16:46 Temperature 97.8 F 06/28/23 21:23 Pulse Rate 75 06/28/23 21:23 Respiratory Rate 20 06/28/23 21:23 Blood Pressure 129/78 06/28/23 21:23 Pulse Oximetry 96 06/28/23 21:23 Oxygen Delivery Room Air 06/28/23 20:00 <Alma Gordon PA-C - Last Filed: 06/28/23 18:36> Vital Signs Temperature 97.8 F 06/28/23 16:46 Pulse Rate 93 06/28/23 16:46 Respiratory Rate 18 06/28/23 16:46 Blood Pressure 135/65 06/28/23 16:46 Pulse Oximetry 97 06/28/23 16:46 Oxygen Delivery Room Air 06/28/23 16:46 Temperature 97.8 F 06/28/23 21:23 Pulse Rate 75 06/28/23 21:23 Respiratory Rate 20 06/28/23 21:23 Blood Pressure 129/78 06/28/23 21:23 Pulse Oximetry 96 06/28/23 21:23 Oxygen Delivery Room Air 06/28/23 20:00 <Kyler Mcgregor MD - Last Filed: 06/28/23 22:13> MDM - Wound/Laceration MDM Narrative Medical decision making narrative: 57-year-old female with history of insulin-dependent type 2 diabetes, hypertension, dyslipidemia, recent partial hallux amputation to the left great toe on 06/05 presents to emergency department for swelling and redness to her left great toe and left 2nd toe concerning for infection. See HPI for further history. Triage vital stable. She is nontoxic appearing. Exam significant for the above. CBC with leukocytosis at 12.8, ESR elevated to 24 and CRP elevated to 6.5. Her lactic is normal 1.7 the x-ray of the left foot shows no evidence of osteomyelitis. COVID and flu are negative. Left lower extremity Doppler shows no evidence of a DVT. Labs and imaging discussed with patient and family at bedside. I discussed the case with patient's surgeon, Dr. Bazzi, who agrees that the patient should be admitted for IV antibiotics. States he will follow up with her within the next week and performed a procedure on the left toe in hopes to prevent amputation. He states he cell the patient recently and the patient did not have an ulceration to her left 2nd toe, therefore he believes this is an acute infection and less likely osteomyelitis. The patient was started on IV cefepime, vancomycin and Flagyl. Case discussed with the hospitalist ANDREW agrees with plan for admission. <Alma Gordon PA-C - Last Filed: 06/28/23 18:36> Lab Data Result diagrams: 06/28/23 17:33 06/28/23 17:33 <Alma Gordon PA-C - Last Filed: 06/28/23 18:36> Labs: Lab Results 06/28/23 06/28/23 Range/Units 17:33 17:36 WBC 12.8 H (4.5-10.0) K/mm3 RBC 5.41 H (4.2-5.4) M/mm3 Hgb 14.3 (12.0-15.0) g/dL Hct 45.3 (37.0-47.0) % MCV 83.7 (80-100) fl MCH 26.4 (26-34) pg MCHC 31.6 L (32-36) g/dl RDW 14.6 H (11.5-14.5) % Plt Count 291 (150-375) k/mm3 MPV 10.3 (7.4-10.4) fl Immature Gran % (Auto) 0.7 H (0-0.5) % Neut % (Auto) 69.0 (45.5-73.1) % Lymph % (Auto) 14.9 L (18.3-44.2) % [place] % (Auto) 8.1 (2.6-8.5) % Eos % (Auto) 6.5 H (0-4.4) % Baso % (Auto) 0.8 (0.2-1.2) % Lymph # (Auto) 1.91 (0.9-3.2) K/mm3 Jun[place] # (Auto) 1.0 H (0.1-0.6) K/mm3 Eos # (Auto) 0.8 H (0-0.3) K/mm3 Baso # (Auto) 0.1 (0.0-0.1) K/mm3 Abs Immat Gran (auto) 0.09 H (0.00-0.031) K/mm3 Absolute Neuts (auto) 8.9 H (1.3-6.7) K/mm3 Absolute Nucleated RBC 0.000 (0.0-0.012) K/mm3 Nucleated RBC % 0.0 (0.0-0.2) % ESR 24 H (0-20) mm/hr PT 13.5 (11.1-14.7) Seconds INR 1.0 APTT 34.2 (22.3-36.8) Seconds Sodium 138 (137-145) mmol/L Potassium 3.7 (3.4-5.0) mmol/L Chloride 106 (98-107) mmol/L Carbon Dioxide 23 (22-30) mmol/L Anion Gap 9 (4-12) mmol/L BUN 24 H (7-17) mg/dL Creatinine 0.60 L (0.7-1.0) mg/dL Estim Creat Clear Calc 106 ml/min Estimated GFR > 60 (59 - ) Glucose 127 H (65-110) mg/dL Lactic Acid 1.7 (0.7-2.0) mmol/L Calcium 9.9 (8.4-10.2) mg/dL Total Bilirubin 0.5 (0.2-1.3) mg/dL AST 29 (14-36) U/L ALT 30 (6-35) U/L Alkaline Phosphatase 119 (38-126) U/L C-Reactive Protein 6.5 H (<1.0) mg/dL Total Protein 7.0 (6.3-8.2) g/dL Albumin 4.2 (3.5-5.1) g/dL Influenza A (RT-PCR) Negative (Negative) Influenza B (RT-PCR) Negative (Negative) RSV (RT-PCR) Negative (Negative) SARS-CoV-2 RNA (RT-PCR) Negative (Negative) <Alma Gordon PA-C - Last Filed: 06/28/23 18:36> Lab Results 06/28/23 06/28/23 Range/Units 17:33 17:36 WBC 12.8 H (4.5-10.0) K/mm3 RBC 5.41 H (4.2-5.4) M/mm3 Hgb 14.3 (12.0-15.0) g/dL Hct 45.3 (37.0-47.0) % MCV 83.7 (80-100) fl MCH 26.4 (26-34) pg MCHC 31.6 L (32-36) g/dl RDW 14.6 H (11.5-14.5) % Plt Count 291 (150-375) k/mm3 MPV 10.3 (7.4-10.4) fl Immature Gran % (Auto) 0.7 H (0-0.5) % Neut % (Auto) 69.0 (45.5-73.1) % Lymph % (Auto) 14.9 L (18.3-44.2) % Jun[place] % (Auto) 8.1 (2.6-8.5) % Eos % (Auto) 6.5 H (0-4.4) % Baso % (Auto) 0.8 (0.2-1.2) % Lymph # (Auto) 1.91 (0.9-3.2) K/mm3 Jun[place] # (Auto) 1.0 H (0.1-0.6) K/mm3 Eos # (Auto) 0.8 H (0-0.3) K/mm3 Baso # (Auto) 0.1 (0.0-0.1) K/mm3 Abs Immat Gran (auto) 0.09 H (0.00-0.031) K/mm3 Absolute Neuts (auto) 8.9 H (1.3-6.7) K/mm3 Absolute Nucleated RBC 0.000 (0.0-0.012) K/mm3 Nucleated RBC % 0.0 (0.0-0.2) % ESR 24 H (0-20) mm/hr PT 13.5 (11.1-14.7) Seconds INR 1.0 APTT 34.2 (22.3-36.8) Seconds Sodium 138 (137-145) mmol/L Potassium 3.7 (3.4-5.0) mmol/L Chloride 106 (98-107) mmol/L Carbon Dioxide 23 (22-30) mmol/L Anion Gap 9 (4-12) mmol/L BUN 24 H (7-17) mg/dL Creatinine 0.60 L (0.7-1.0) mg/dL Estim Creat Clear Calc 106 ml/min Estimated GFR > 60 (59 - ) Glucose 127 H (65-110) mg/dL Lactic Acid 1.7 (0.7-2.0) mmol/L Calcium 9.9 (8.4-10.2) mg/dL Total Bilirubin 0.5 (0.2-1.3) mg/dL AST 29 (14-36) U/L ALT 30 (6-35) U/L Alkaline Phosphatase 119 (38-126) U/L C-Reactive Protein 6.5 H (<1.0) mg/dL Total Protein 7.0 (6.3-8.2) g/dL Albumin 4.2 (3.5-5.1) g/dL Influenza A (RT-PCR) Negative (Negative) Influenza B (RT-PCR) Negative (Negative) RSV (RT-PCR) Negative (Negative) SARS-CoV-2 RNA (RT-PCR) Negative (Negative) <Kyler Mcgregor MD - Last Filed: 06/28/23 22:13> Discharge Plan Discharge Clinical Impression: Cellulitis Qualifiers: Site of cellulitis: extremity Site of cellulitis of extremity: lower extremity Laterality: left Qualified Code(s): L03.116 - Cellulitis of left lower limb Diabetic foot ulcer Qualifiers: Diabetic foot ulcer location: toe Diabetes mellitus type: type 2 Laterality: left Non-pressure ulcer stage: unspecified non-pressure ulcer stage Qualified Code(s): E11.621 - Type 2 diabetes mellitus with foot ulcer <Alma Gordon PA-C - Last Filed: 06/28/23 18:36> Patient Disposition: Still a Patient <Alma Gordon PA-C - Last Filed: 06/28/23 18:36> Condition: Stable <Alma Gordon PA-C - Last Filed: 06/28/23 18:36>
[2023-06-28 17:40] LABS: Basophils Absolute Auto 0.1 K/mm3 (0.0-0.1); Basophils Percent Auto 0.8 % (0.2-1.2); Eosinophils Absolute Auto 0.8 K/mm3 (0-0.3); Eosinophils Percent Auto 6.5 % (0-4.4); Hematocrit 45.3 % (37.0-47.0); Hemoglobin 14.3 g/dL (12.0-15.0); Immature Granulocyte Absolute 0.09 K/mm3 (0.00-0.031); Immature Granulocyte Percent A 0.7 % (0-0.5); Lymphocytes Absolute Auto 1.91 K/mm3 (0.9-3.2); Lymphocytes Percent Auto 14.9 % (18.3-44.2); Mean Corpuscular HGB Conc 31.6 g/dl (32-36); Mean Corpuscular Hemoglobin 26.4 pg (26-34); Mean Corpuscular Volume 83.7 fl (80-100); Mean Platelet Volume 10.3 fl (7.4-10.4); Monocytes Percent Auto 8.1 % (2.6-8.5); Neutrophils Absolute Auto 8.9 K/mm3 (1.3-6.7); Platelet Count Result 291 k/mm3 (150-375); Red Blood Count 5.41 M/mm3 (4.2-5.4); Red Cell Distribution Width 14.6 % (11.5-14.5); White Blood Count 12.8 K/mm3 (4.5-10.0)
[2023-06-28 17:49] LABS: Lactic Acid Reflex 1.7 mmol/L (0.7-2.0)
[2023-06-28 17:52] LABS: Alanine Aminotransferase 30 U/L (6-35); Albumin Level 4.2 g/dL (3.5-5.1); Alkaline Phosphatase 119 U/L (38-126); Anion Gap 9 mmol/L (4-12); Aspartate Amino Transferase 29 U/L (14-36); Bilirubin,Total 0.5 mg/dL (0.2-1.3); Blood Urea Nitrogen 24 mg/dL (7-17); CRP 6.5 mg/dL (<1.0); Calcium 9.9 mg/dL (8.4-10.2); Carbon Dioxide 23 mmol/L (22-30); Chloride 106 mmol/L (98-107); Estimated CRCL calculation 106 ml/min; Estimated Glomerular Filt Rate > 60; Glucose 127 mg/dL (65-110); Potassium 3.7 mmol/L (3.4-5.0); Sodium 138 mmol/L (137-145)
[2023-06-28 17:52] LABS: Partial Thromboplastin Time 34.2 Seconds (22.3-36.8); Prothrombin Time 13.5 Seconds (11.1-14.7)
[2023-06-28 18:14] LABS: Erythrocyte Sedimentation Rate 24 mm/hr (0-20)
[2023-06-28 18:15] LABS: Influenza A QL RT-PCR Negative (Negative); Influenza B QL RT-PCR Negative (Negative); RSV RNA, RT-PCR Negative (Negative); SARS-CoV-2 RNA PCR Negative (Negative)
[2023-06-28] MEDS: CEFEPIME 2 GM/NS 50 ML 2 GM/50 ML BAG IVPB ×2 (19:00→20:14)
[2023-06-28 20:00] VITALS: O2SAT 97
[2023-06-28] MEDS: metroNIDAZOLE 500 MG/ISO 100ML 500 MG/100 ML BAG 100 MG IVPB (20:15)
[2023-06-28] MEDS: VANCOMYCIN 1,250 MG/NS 250 ML 1,250 MG/250 ML BAG 166.67 MG IVPB (20:17)
[2023-06-28 21:23] VITALS: BP 129/78; PULSE 75; RESP 20; TEMP 36.6; O2SAT 96
[2023-06-28 21:24] VITALS: BMI 44.2
--- NOTE | 2023-06-28 22:42 | PM.IMHP ---
H&P: HPI History of Present Illness Date/Time: 06/28/23 22:45 Chief Complaint: Left foot wound. Narrative: This is a very pleasant 57-year-old female with insulin-dependent type 2 diabetes mellitus, hypertension, and hyperlipidemia who presented to the emergency department for evaluation of a left foot wound. The patient provides the following history. She had a partial amputation of the left hallux per Dr. Bazzi for chronic osteomyelitis. She reports body aches and chills the last couple of days and today when she did her dressing change she noticed increasing swelling and redness at the amputation site, extending to the 2nd toe. She has also noticed that her glucose has been running higher than usual the last couple of days. She has not had a documented fever and denies pain at the site due to neuropathy. No known history of multidrug resistant organisms. She has not had nausea or vomiting. In the ED: She was afebrile on arrival with stable vital signs. Labs were significant for a WBC count of 12.8, hemoglobin 14.3, glucose 127, lactic acid 1.7, CRP 6.5. She tested negative for influenza, RSV, and COVID. Left lower extremity venous Doppler ultrasound was negative for DVT. Left foot x-ray showed no acute osseous findings in the left foot. She has been started on antibiotics for cellulitis and is being admitted in this setting. Review of Systems Review of Systems: 12 systems were reviewed and are negative except for as per HPI. [facility] Past Medical History Medical History (Updated 06/29/23 @ 00:13 by Michelle Shelby PA-C) Gastroesophageal reflux disease Hyperlipidemia Hypertension Insulin dependent type 2 diabetes mellitus Osteoarthritis Osteomyelitis Surgical History Surgical History (Updated 06/28/23 @ 22:46 by Michelle Shelby PA-C) History of amputation of toe Right 3rd toe. Partial amputation left 1st toe for osteomyelitis. 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 History of tubal ligation Family History Family History Mother Hypertension Family history of rheumatoid arthritis Cerebrovascular accident, Onset Age: 55 Social History Social History (Updated 06/28/23 @ 22:49 by Michelle Shelby PA-C) Social History: Surrogate medical decision maker: Giovanny Su, spouse. Code status: Full code. Smoking status: Never smoker Alcohol intake: never Substance use: never Substance use type: does not use Do You Feel Safe in your Home?: Yes Lack of Transportation: No Lack of Food: Never True Current Housing: I Have Housing Concerned About Future Housing: Decline to Answer Difficulty Paying Gas/Electric Bills: Decline to Answer Difficulty Paying for Meds: Decline to Answer Currently Unemployed: Decline to Answer Education: Decline to Answer Difficulty w/ Childcare or Family Care: Decline to Answer Living arrangements: with family Spiritual care concerns: No Meds Home Medications and Allergies Home Medications Medication Instructions Recorded Confirmed Type albuterol sulfate 90 mcg/actuation 2 puff inhalation Q4H PRN 04/15/19 06/28/23 Rx aerosol inhaler (ProAir HFA) shortness of breath or wheezing #8.5 grams citalopram 40 mg tablet 40 mg PO DAILY #90 tabs 03/04/22 06/28/23 Rx aspirin 81 mg tablet,delayed 81 mg PO DAILY 04/03/22 06/28/23 History release simvastatin 10 mg tablet 10 mg PO DAILY #90 tabs 10/07/22 06/28/23 Rx doxycycline hyclate 100 mg capsule 100 mg PO BID 06/02/23 06/28/23 History tirzepatide 5 mg/0.5 mL 5 mg subcut WEEKLY 06/02/23 06/28/23 History subcutaneous pen injector (Mounjaro) amlodipine 10 mg tablet 10 mg PO DAILY #90 tabs 06/04/23 06/28/23 Rx insulin lispro-aabc 100 unit/mL See Rx Instructions .Route .COMPLEX 06/06/23 06/28/23 History subcutaneous solution (Lyumjev U-100 Insulin) ibuprofen 800 mg tablet 800 mg PO TID PRN Pain #270 tabs 06/23/23 06/28/23 Rx insulin glargine U-300 conc 300 50 unit subcut DAILY 06/28/23 06/28/23 History unit/mL (1.5 mL) subcutaneous pen (Toujeo SoloStar U-300 Insulin) Allergies Allergy/AdvReac Type Severity Reaction Status Date / Time cefuroxime Allergy Unknown Joint pain Verified 06/28/23 17:13 Vital Signs Vital Signs - 24 hr 06/28/23 16:46 06/28/23 20:00 06/28/23 21:23 Temperature 97.8 F 97.8 F Pulse Rate 93 75 Respiratory Rate 18 20 Blood Pressure 135/65 129/78 Pulse Oximetry 97 97 96 Oxygen Delivery Room Air Room Air Exam Narrative: General: Mildly ill-appearing female lying on her right side in bed in no acute distress. Weight: 116.9 kg. BMI: 44.2. HEENT: Normocephalic, atraumatic. PERRL, EOMI. Sclera anicteric. Oral mucosa moist. Neck: Supple. Respiratory: Lungs are clear to auscultation bilaterally. Cardiovascular: Regular rate and rhythm with S1-S2. Gastrointestinal: Abdomen is soft, nontender, and nondistended with positive bowel sounds. Skin: Warm and dry. Erythema and warmth about the left 1st and 2nd toe extending to the ankle and left posterior calf. There is an open ulcer to the tip of the 2nd toe with some purulent drainage. There is associated edema. Extremities: No cyanosis or clubbing. Bilateral lower extremity edema, left greater than right. Radial and pedal pulses intact. Neurological: Alert. Cranial nerves 2-12 are grossly intact. Decreased sensation in the legs due to neuropathy. Psychiatric: Pleasant and cooperative with normal mood and affect. Judgment and insight intact. H&P: Results Labs Labs: Short CBC 06/28/23 Range/Units 17:33 WBC 12.8 H (4.5-10.0) K/mm3 Hgb 14.3 (12.0-15.0) g/dL Hct 45.3 (37.0-47.0) % Plt Count 291 (150-375) k/mm3 [facility] 06/28/23 17:33 Sodium 138 Potassium 3.7 Chloride 106 Carbon Dioxide 23 BUN 24 H Creatinine 0.60 L Glucose 127 H Calcium 9.9 Liver Function 06/28/23 Range/Units 17:33 Total Bilirubin 0.5 (0.2-1.3) mg/dL AST 29 (14-36) U/L ALT 30 (6-35) U/L Alkaline Phosphatase 119 (38-126) U/L Albumin 4.2 (3.5-5.1) g/dL Impressions Foot X-Ray 06/28/23 17:33 IMPRESSION: No acute osseous finding in the left foot. Venous Doppler Study 06/28/23 18:22 IMPRESSION: Patent left lower extremity veins. No evidence of deep venous thrombosis. Assessment and Plan Assessment and plan (1) Cellulitis of left lower extremity: Code(s): L03.116 - Cellulitis of left lower limb Status: Acute (2) Diabetic foot infection: Code(s): E11.628 - Type 2 diabetes mellitus with other skin complications; L08.9 - Local infection of the skin and subcutaneous tissue, unspecified Status: Acute (3) Insulin dependent type 2 diabetes mellitus: Code(s): E11.9 - Type 2 diabetes mellitus without complications; Z79.4 - MCC (current) use of insulin Status: Acute (4) Hypertension: Code(s): I10 - Essential (primary) hypertension Status: Acute Plan The patient presented to the emergency department for evaluation of increasing swelling and redness the site of a recent partial left hallux amputation as detailed in HPI. Labs, imaging, EKG, and all reports were personally reviewed. She has cellulitis at the area and an ulcerated area on the 2nd toe with purulent drainage for which she has been started on cefepime, metronidazole, and vancomycin per antibiotic stewardship recommendations. Left foot x-ray did not show any findings to suggest underlying osteomyelitis. Analgesics are available as needed. She was encouraged to elevate the foot as possible. She understands the importance of keeping her glucose under strict control. Continue basal insulin. Initiate sliding scale insulin, Accu-Cheks, and hypoglycemic protocol. Vital signs were reviewed and they are stable. Home medications will be reviewed and resumed as appropriate. Findings and treatment plan were discussed with the patient. Questions were solicited and answered to satisfaction. The patient's medical management will be taken over by the hospitalist team in a.m. Quality VTE Prophylaxis VTE prophylaxis: pharmacologic ordered The patient has been admitted under observation status.
[2023-06-29] MEDS: metroNIDAZOLE 500 MG/ISO 100ML 500 MG/100 ML BAG 100 MG IVPB ×3 (05:00→20:57)
[2023-06-29] MEDS: CEFEPIME 2 GM/NS 50 ML 2 GM/50 ML BAG IVPB ×2 (05:31→17:32)
[2023-06-29 06:00] VITALS: BP 127/61; PULSE 74; RESP 20; TEMP 36.7; O2SAT 97
[2023-06-29 06:14] LABS: Hematocrit 42.1 % (37.0-47.0); Hemoglobin 12.9 g/dL (12.0-15.0); Mean Corpuscular HGB Conc 30.6 g/dl (32-36); Mean Corpuscular Hemoglobin 26.5 pg (26-34); Mean Corpuscular Volume 86.6 fl (80-100); Platelet Count Result 248 k/mm3 (150-375); Red Blood Count 4.86 M/mm3 (4.2-5.4); Red Cell Distribution Width 14.5 % (11.5-14.5)
[2023-06-29 06:25] LABS: Anion Gap 4 mmol/L (4-12); Blood Urea Nitrogen 21 mg/dL (7-17); Calcium 8.9 mg/dL (8.4-10.2); Carbon Dioxide 25 mmol/L (22-30); Chloride 107 mmol/L (98-107); Estimated CRCL calculation 108 ml/min; Estimated Glomerular Filt Rate > 60; Glucose 156 mg/dL (65-110); Magnesium 2.2 mg/dL (1.6-2.3); Potassium 3.7 mmol/L (3.4-5.0); Sodium 136 mmol/L (137-145)
[2023-06-29 06:36] LABS: Hemoglobin A1C 7.5 % (<5.7)
[2023-06-29 07:39] LABS: Glucose Point of Care 174 mg/dl (65-105)
[2023-06-29] MEDS: VANCOMYCIN 1,500 MG/NS 500 ML 1,500 MG/500 ML BAG 250 MG IVPB ×2 (08:13→20:56)
[2023-06-29] MEDS: INSULIN GLARGINE (*BKC) 100 UNITS/ML 50 UNITS SUB-Q (08:13)
[2023-06-29] MEDS: amLODIPine BESYLATE 5 MG TABLET 10 MG PO (08:14)
[2023-06-29] MEDS: ENOXAPARIN 40 MG/0.4 ML SYRINGE SUB-Q (08:14)
[2023-06-29] MEDS: ASPIRIN 81 MG ENTERIC TABLET PO (08:15)
[2023-06-29] MEDS: CITALOPRAM HYDROBROMIDE 20 MG TABLET 40 MG PO (08:15)
[2023-06-29] MEDS: SIMVASTATIN 10 MG TABLET PO (08:15)
--- NOTE | 2023-06-29 09:01 | P.PNIM_ITS ---
Progress Note: A&P Assessment and Plan (1) Cellulitis of left lower extremity: Code(s): L03.116 - Cellulitis of left lower limb Status: Acute Assessment and Plan: 06/29/23: * Patient has history of type 2 diabetes mellitus and a recent partial amputation of the left hallux performed on 06/06/[address] Bazzi. * Swelling redness and warmth near amputation site suspicious for cellulitis * White blood cell count initially 12.8, lactate was 1.7 * White blood cell down to 10.0 today * Blood cultures obtained and are pending * Continue cefepime, Flagyl, and vancomycin * General surgery consulted (2) Diabetic foot infection: Code(s): E11.628 - Type 2 diabetes mellitus with other skin complications; L08.9 - Local infection of the skin and subcutaneous tissue, unspecified Status: Acute Assessment and Plan: 06/29/23: * See above (3) Insulin dependent type 2 diabetes mellitus: Code(s): E11.9 - Type 2 diabetes mellitus without complications; Z79.4 - long term (current) use of insulin Status: Acute Assessment and Plan: 06/29/23: * Blood sugars ranging 127-156 * Last hemoglobin A1c 7.5 * Accu-Cheks AC and HS * Diabetic diet ordered * High-dose sliding scale ordered * Hypoglycemic protocol in place * Will hold Mounjaro and Lyumjev insulin sliding scale which are the home medications (4) Hypertension: Code(s): I10 - Essential (primary) hypertension Status: Acute Assessment and Plan: 06/29/23: * Patient's blood pressure ranging blood pressure ranging 127/61 to 129/70 * Continue amlodipine Time Spent With Patient Time with patient: Greater than 35 minutes Subjective Date/time seen: 06/29/23 09:01 Interval history: This is a 57-year-old female a significant past medical history of type 2 diabetes, hypertension, hyperlipidemia presented to the hospital for 624 for evaluation of the left foot wound. She had a partial amputation of the left hallux per Dr. Bazzi for chronic osteomyelitis. She reported increased body aches, chills, swelling, redness at the amputation site extending to the 2nd toe. She also reports that her blood glucose has been running higher than usual the last few days. Workup in the hospital includes a foot x-ray which shows no acute osseous findings in the left foot. Venous Doppler study was negative for any acute DVT. Labs initially revealing white blood cell count of 12.8, blood sugar ranging 127-156, lactic acid 1.9, liver enzymes are normal, C reactive protein 6.5. Respiratory panel was negative for influenza a and B, RSV, and COVID. Blood cultures were obtained and are pending. Patient was started on cefepime, Flagyl, and vancomycin. On examination today patient is alert and oriented x3, lying in the bed. Patient denies any fever, chills, nausea, vomiting, diarrhea, abdominal pain, chest pain, shortness breath. She also denies pain in her right foot. Patient endorses drainage and swelling near the amputation site. Labs today reveal white blood count 10.0, sodium 136, hemoglobin A1c is 7 point, Mag was 2.2, blood sugars ranging 156-174. General surgery was consulted. Review of Systems Review of Systems: 12 systems were reviewed and are negativ e except for as per HPI. All systems reviewed & are unremarkable except as noted in HPI and below Constitutional: Constitutional: Reports as per HPI and Reports no additional constitutional complaints Eyes: Eyes: Reports as per HPI and Reports no additional eye complaints ENT: Reports system reviewed and no additional complaints, except as documented and Reports as per HPI Cardiovascular: Cardiovascular: Reports as per HPI and Reports no additional cardiovascular complaints Respiratory: Respiratory: Reports as per HPI and Reports no additional respiratory complaints Gastrointestinal: Gastrointestinal: Reports as per HPI and Reports no additional gastrointestinal complaints Genitourinary: Genitourinary: Reports no additional female genitourinary complaints and Reports as per HPI Musculoskeletal: Musculoskeletal: Reports no additional musculoskeletal complaints and Reports as per HPI Integumentary/Breasts: Skin/Breast: Reports system reviewed and no additional complaints, except as docu and Reports as per HPI Neurologic: Reports system reviewed and no additional complaints, except as documented and Reports as per HPI Psychiatric: Psychiatric: Reports no additional psychiatric complaints and Reports as per HPI Exam Narrative: General: In no acute distress, well nourished Head: atraumatic, no encephalopathy Eyes: EOMI, PERRLA, sclera clear ENT: moist mucous membranes, nasal passages clear Neck: supple, no JVD, no adenopathy, trachea midline Cardiac: Normal S1 and S2. RRR. No murmur, gallops or friction rubs, peripheral pulses intact. Respiratory: Lungs clear to auscultation, no adventitious lung sounds, currently on room air Gastrointestinal: soft, non-distended, non-tender, normoactive bowel sounds. : voiding without difficulty. Extremities: moves all extremities well, no edema, good ROM, strength 5/5 Skin: Right foot surgical wound with drainage noted on bandage, warmth up leg, and swelling Neuro: Alert and oriented x4, cranial nerves intact, no neuro deficits. Psych: normal mood, normal affect, interactive Objective Data Vital Signs Vital Signs: Vital Signs - 24 hr 06/28/23 16:46 06/28/23 20:00 06/28/23 21:23 Temperature 97.8 F 97.8 F Pulse Rate 93 75 Respiratory Rate 18 20 Blood Pressure 135/65 129/78 Pulse Oximetry 97 97 96 Oxygen Delivery Room Air Room Air 06/29/23 06:00 Temperature 98.0 F Pulse Rate 74 Respiratory Rate 20 Blood Pressure 127/61 Pulse Oximetry 97 Oxygen Delivery Intake/Output Intake/Output: Intake & Output 06/26/23 06/27/23 06/28/23 06/29/23 23:59 23:59 23:59 23:59 Intake Total 900 250 Balance 900 250 Meds/Results Medications: Active Medications Generic Name Dose Route Start Last Admin Trade Name Freq PRN Reason Stop Dose Admin Acetaminophen 650 mg 06/28/23 22:52 Acetaminophen 325 Mg Tablet PO Q6H PRN Mild Pain (1-3) or Fever Albuterol 2 puff 06/28/23 22:53 Albuterol Sulfate (*Sp) Aerosol 1 Puff INHALATION Q4H PRN shortness of breath or wheezing Amlodipine Besylate 10 mg 06/29/23 09:00 06/29/23 08:14 Amlodipine Besylate 5 Mg Tablet PO 10 mg DAILY TRINIDAD Administration Aspirin 81 mg 06/29/23 09:00 06/29/23 08:15 Aspirin 81 Mg Enteric Tablet PO 81 mg DAILY TRINIDAD Administration Citalopram Hydrobromide 40 mg 06/29/23 09:00 06/29/23 08:15 Citalopram Hydrobromide 20 Mg Tablet PO 40 mg DAILY TRINIDAD Administration Dextrose 12.5 gm 06/28/23 22:52 Dextrose 50% 25 Gm/50 Ml Syringe IV PUSH PRN PRN Hypoglycemia Protocol Enoxaparin Sodium 40 mg 06/29/23 09:00 06/29/23 08:14 Enoxaparin 40 Mg/0.4 Ml Syringe SUB-Q 40 mg DAILY TRINIDAD Administration Glucagon 1 mg 06/28/23 22:52 Glucagon For Inj 1 Mg Vial IM PRN PRN Hypoglycemia Protocol Glucose 15 gm 06/28/23 22:52 Glucose Oral Gel 15 Gm Of Glucse In 37.5 Gm Tube PO PRN PRN Hypoglycemia Protocol Cefepime HCl 2 gm in 50 mls @ 100 mls/hr 06/28/23 18:30 06/29/23 06:31 Maxipime 2 Gm/Ns 50 Ml IVPB Infused Q12H TR[facility]AD Infusion Metronidazole 500 mg in 100 mls @ 100 mls/hr 06/29/23 04:00 06/29/23 06:00 Flagyl 500 Mg/Iso Soln 100 Ml IVPB Infused Q8H [facility] Infusion Vancomycin HCl 1,500 mg in 500 mls @ 250 mls/hr 06/29/23 08:00 06/29/23 08:13 Vancomycin 1,500 Mg/Ns 500 Ml IVPB 250 mls/hr Q12H TRIN[facility]AD Administration Dextrose 1,000 mls @ 100 mls/hr 06/28/23 22:52 Dextrose 5% 1,000 Ml IVPB PRN PRN Hypoglycemia Protocol Insulin Aspart 2 - 4 units 06/28/23 23:00 06/28/23 23:31 Insulin Aspart (*Bkc) 100 Units/Ml SUB-Q Not Given HS [facility] Protocol Insulin Aspart 4 - 8 units 06/29/23 08:00 06/29/23 08:15 Insulin Aspart (*Bkc) 100 Units/Ml SUB-Q Not Given TIDWM [facility] Protocol Insulin Glargine 50 units 06/29/23 09:00 06/29/23 08:13 Insulin Glargine (*Bkc) 100 Units/Ml SUB-Q 50 units DAILY TRINIDAD Administration Simvastatin 10 mg 06/29/23 09:00 06/29/23 08:15 Simvastatin 10 Mg Tablet PO 10 mg DAILY TRINIDAD Administration Radiology Results: ITS Impressions Foot X-Ray 06/28/23 17:33 IMPRESSION: No acute osseous finding in the left foot. Venous Doppler Study 06/28/23 18:22 IMPRESSION: Patent left lower extremity veins. No evidence of deep venous thrombosis. Labs Labs: Laboratory Results - last 24 hr 06/28/23 06/28/23 06/29/23 17:33 17:36 05:26 WBC 12.8 H 10.0 RBC 5.41 H 4.86 Hgb 14.3 12.9 Hct 45.3 42.1 MCV 83.7 86.6 MCH 26.4 26.5 MCHC 31.6 L 30.6 L RDW 14.6 H 14.5 Plt Count 291 248 MPV 10.3 10.0 Immature Gran % (Auto) 0.7 H Neut % (Auto) 69.0 Lymph % (Auto) 14.[address] % (Auto) 8.1 Eos % (Auto) 6.5 H Baso % (Auto) 0.8 Lymph # (Auto) 1.91 Lane # (Auto) 1.0 H Eos # (Auto) 0.8 H Baso # (Auto) 0.1 Abs Immat Gran (auto) 0.09 H Absolute Neuts (auto) 8.9 H Absolute Nucleated RBC 0.000 Nucleated RBC % 0.0 ESR 24 H PT 13.5 INR 1.0 APTT 34.2 Sodium 138 136 L Potassium 3.7 3.7 Chloride 106 107 Carbon Dioxide 23 25 Anion Gap 9 4 BUN 24 H 21 H Creatinine 0.60 L 0.60 L Estim Creat Clear Calc 106 108 Estimated GFR > 60 > 60 Glucose 127 H 156 H POC Capillary Glucose Hemoglobin A1c 7.5 H Lactic Acid 1.7 Calcium 9.9 8.9 Magnesium 2.2 Total Bilirubin 0.5 AST 29 ALT 30 Alkaline Phosphatase 119 C-Reactive Protein 6.5 H Total Protein 7.0 Albumin 4.2 Influenza A (RT-PCR) Negative Influenza B (RT-PCR) Negative RSV (RT-PCR) Negative SARS-CoV-2 RNA (RT-PCR) Negative 06/29/23 07:28 WBC RBC Hgb Hct MCV MCH MCHC RDW Plt Count MPV Immature Gran % (Auto) Neut % (Auto) Lymph % (Auto) Lane % (Auto) Eos % (Auto) Baso % (Auto) Lymph # (Auto) Lane # (Auto) Eos # (Auto) Baso # (Auto) Abs Immat Gran (auto) Absolute Neuts (auto) Absolute Nucleated RBC Nucleated RBC % ESR PT INR APTT Sodium Potassium Chloride Carbon Dioxide Anion Gap BUN Creatinine Estim Creat Clear Calc Estimated GFR Glucose POC Capillary Glucose 174 H Hemoglobin A1c Lactic Acid Calcium Magnesium Total Bilirubin AST ALT Alkaline Phosphatase C-Reactive Protein Total Protein Albumin Influenza A (RT-PCR) Influenza B (RT-PCR) RSV (RT-PCR) SARS-CoV-2 RNA (RT-PCR) Quality VTE Prophylaxis VTE prophylaxis: pharmacologic ordered
[2023-06-29] MEDS: INSULIN ASPART (*BKC) 100 UNITS/ML SUB-Q ×2 (12:00→20:53)
[2023-06-29 12:54] LABS: Glucose Point of Care 220 mg/dl (65-105)
[2023-06-29 14:00] VITALS: BP 139/72; PULSE 83; RESP 14; TEMP 36.3; O2SAT 98
[2023-06-29 16:58] LABS: Glucose Point of Care 174 mg/dl (65-105)
[2023-06-29 20:00] VITALS: O2SAT 98
[2023-06-29 21:13] VITALS: BP 122/64; PULSE 77; RESP 18; TEMP 36.4; O2SAT 96
[2023-06-29] MEDS: ACETAMINOPHEN 325 MG TABLET 650 MG PO (21:20)
[2023-06-30 04:01] LABS: Glucose Point of Care 238 mg/dl (65-105)
[2023-06-30] MEDS: metroNIDAZOLE 500 MG/ISO 100ML 500 MG/100 ML BAG 100 MG IVPB ×3 (04:45→21:29)
[2023-06-30] MEDS: CEFEPIME 2 GM/NS 50 ML 2 GM/50 ML BAG IVPB (05:35)
[2023-06-30 05:59] VITALS: BP 120/54; PULSE 74; RESP 16; TEMP 36.1; O2SAT 94
[2023-06-30 06:59] LABS: Glucose Point of Care 180 mg/dl (65-105)
[2023-06-30 07:30] LABS: Estimated CRCL calculation 127 ml/min; Estimated Glomerular Filt Rate > 60
[2023-06-30 08:24] LABS: Vancomycin Trough 13.9 ug/mL (10.0-20.0)
[2023-06-30] MEDS: VANCOMYCIN 1,750 MG/NS 500 ML 1,750 MG/500 ML BAG 250 MG IVPB ×2 (08:46→21:29)
[2023-06-30] MEDS: ENOXAPARIN 40 MG/0.4 ML SYRINGE SUB-Q (08:47)
[2023-06-30] MEDS: INSULIN GLARGINE (*BKC) 100 UNITS/ML 50 UNITS SUB-Q (08:47)
[2023-06-30] MEDS: amLODIPine BESYLATE 5 MG TABLET 10 MG PO (08:47)
[2023-06-30] MEDS: CITALOPRAM HYDROBROMIDE 20 MG TABLET 40 MG PO (08:47)
[2023-06-30] MEDS: ASPIRIN 81 MG ENTERIC TABLET PO (08:47)
[2023-06-30] MEDS: SIMVASTATIN 10 MG TABLET PO (08:47)
[2023-06-30] MEDS: ACETAMINOPHEN 325 MG TABLET 650 MG PO (09:11)
--- NOTE | 2023-06-30 09:24 | P.PNIM_ITS ---
Progress Note: A&P Assessment and Plan (1) Cellulitis of left lower extremity: Code(s): L03.116 - Cellulitis of left lower limb Status: Acute Assessment and Plan: 06/29/23: * Patient has history of type 2 diabetes mellitus and a recent partial amputation of the left hallux performed on 06/06/[address] Bazzi. * Swelling redness and warmth near amputation site suspicious for cellulitis * White blood cell count initially 12.8, lactate was 1.7 * White blood cell down to 10.0 today * Blood cultures obtained and are pending * Continue cefepime, Flagyl, and vancomycin * General surgery consulted 06/30/23: * Blood culture showing no growth to date on preliminary read * Continue Flagyl and vancomycin, will switch cefepime to Levaquin * Podiatry consulted (2) Diabetic foot infection: Code(s): E11.628 - Type 2 diabetes mellitus with other skin complications; L08.9 - Local infection of the skin and subcutaneous tissue, unspecified Status: Acute Assessment and Plan: 06/29/23: * See above (3) Insulin dependent type 2 diabetes mellitus: Code(s): E11.9 - Type 2 diabetes mellitus without complications; Z79.4 - [facility] (current) use of insulin Status: Acute Assessment and Plan: 06/29/23: * Blood sugars ranging 127-156 * Last hemoglobin A1c 7.5 * Accu-Cheks AC and HS * Diabetic diet ordered * High-dose sliding scale ordered * Hypoglycemic protocol in place * Will hold Mounjaro and Lyumjev insulin sliding scale which are the home medications 06/30/23: * Blood sugars ranging 180-238 * Will order Lantus 5 units for tonight * Continue with current treatment plan (4) Hypertension: Code(s): I10 - Essential (primary) hypertension Status: Acute Assessment and Plan: 06/29/23: * Patient's blood pressure ranging blood pressure ranging 127/61 to 129/70 * Continue amlodipine 06/30/23: * Blood pressures remain controlled * Continue current treatment Time Spent With Patient Time with patient: 25 - 35 minutes Subjective Date/time seen: 06/30/23 09:24 Interval history: 06/29/23: This is a 57-year-old female a significant past medical history of type 2 diabetes, hypertension, hyperlipidemia presented to the hospital for 624 for evaluation of the left foot wound. She had a partial amputation of the left hallux per Dr. Bazzi for chronic osteomyelitis. She reported increased body aches, chills, swelling, redness at the amputation site extending to the 2nd toe. She also reports that her blood glucose has been running higher than usual the last few days. Workup in the hospital includes a foot x-ray which shows no acute osseous findings in the left foot. Venous Doppler study was negative for any acute DVT. Labs initially revealing white blood cell count of 12.8, blood sugar ranging 127-156, lactic acid 1.9, liver enzymes are normal, C reactive protein 6.5. Respiratory panel was negative for influenza a and B, RSV, and COVID. Blood cultures were obtained and are pending. Patient was started on cefepime, Flagyl, and vancomycin. On examination today patient is alert and oriented x3, lying in the bed. Patient denies any fever, chills, nausea, vomiting, diarrhea, abdominal pain, chest pain, shortness breath. She also denies pain in her right foot. Patient endorses drainage and swelling near the amputation site. Labs today reveal white blood count 10.0, sodium 136, hemoglobin A1c is 7 point, Mag was 2.2, blood sugars ranging 156-174. General surgery was consulted. 06/30/23: She denies any new complaints today. Antibiotics switched to Levaquin Flagyl and vancomycin. Cefepime was DC'd. Podiatry to see patient today. Patient s tates there is still drainage coming form the wound. Review of Systems Review of Systems: 12 systems were reviewed and are negativ e except for as per HPI. All systems reviewed & are unremarkable except as noted in HPI and below Constitutional: Constitutional: Reports as per HPI and Reports no additional constitutional complaints Eyes: Eyes: Reports as per HPI and Reports no additional eye complaints ENT: Reports system reviewed and no additional complaints, except as documented and Reports as per HPI Cardiovascular: Cardiovascular: Reports as per HPI and Reports no additional cardiovascular complaints Respiratory: Respiratory: Reports as per HPI and Reports no additional respiratory complaints Gastrointestinal: Gastrointestinal: Reports as per HPI and Reports no additional gastrointestinal complaints Genitourinary: Genitourinary: Reports no additional female genitourinary complaints and Reports as per HPI Musculoskeletal: Musculoskeletal: Reports no additional musculoskeletal complaints and Reports as per HPI Integumentary/Breasts: Skin/Breast: Reports system reviewed and no additional complaints, except as docu and Reports as per HPI Neurologic: Reports system reviewed and no additional complaints, except as documented and Reports as per HPI Psychiatric: Psychiatric: Reports no additional psychiatric complaints and Reports as per HPI Exam Narrative: General: In no acute distress, well nourished Head: atraumatic, no encephalopathy Eyes: EOMI, PERRLA, sclera clear ENT: moist mucous membranes, nasal passages clear Neck: supple, no JVD, no adenopathy, trachea midline Cardiac: Normal S1 and S2. RRR. No murmur, gallops or friction rubs, peripheral pulses intact. Respiratory: Lungs clear to auscultation, no adventitious lung sounds, currently on room air Gastrointestinal: soft, non-distended, non-tender, normoactive bowel sounds. : voiding without difficulty. Extremities: moves all extremities well, no edema, good ROM, strength 5/5 Skin: Right foot surgical wound with drainage noted on bandage, warmth up leg, and swelling Neuro: Alert and oriented x4, cranial nerves intact, no neuro deficits. Psych: normal mood, normal affect, interactive Objective Data Vital Signs Vital Signs: Vital Signs - 24 hr 06/29/23 14:00 06/29/23 20:00 06/29/23 21:13 Temperature 97.3 F L 97.5 F L Pulse Rate 83 77 Respiratory Rate 14 18 Blood Pressure 139/72 122/64 Pulse Oximetry 98 98 96 Oxygen Delivery Room Air 06/30/23 05:59 Temperature 97.0 F L Pulse Rate 74 Respiratory Rate 16 Blood Pressure 120/54 L Pulse Oximetry 94 Oxygen Delivery Intake/Output Intake/Output: Intake & Output 06/27/23 06/28/23 06/29/23 06/30/23 23:59 23:59 23:59 23:59 Intake Total 900 3600 350 Balance 900 3600 350 Meds/Results Medications: Active Medications Generic Name Dose Route Start Last Admin Trade Name Freq PRN Reason Stop Dose Admin Acetaminophen 650 mg 06/28/23 22:52 06/30/23 09:11 Acetaminophen 325 Mg Tablet PO 650 mg Q6H PRN Administration Mild Pain (1-3) or Fever Albuterol 2 puff 06/28/23 22:53 Albuterol Sulfate (*Sp) Aerosol 1 Puff INHALATION Q4H PRN shortness of breath or wheezing Amlodipine Besylate 10 mg 06/29/23 09:00 06/30/23 08:47 Amlodipine Besylate 5 Mg Tablet PO 10 mg DAILY TRINIDAD Administration Aspirin 81 mg 06/29/23 09:00 06/30/23 08:47 Aspirin 81 Mg Enteric Tablet PO 81 mg DAILY TRINIDAD Administration Citalopram Hydrobromide 40 mg 06/29/23 09:00 06/30/23 08:47 Citalopram Hydrobromide 20 Mg Tablet PO 40 mg DAILY TRINIDAD Administration Dextrose 12.5 gm 06/28/23 22:52 Dextrose 50% 25 Gm/50 Ml Syringe IV PUSH PRN PRN Hypoglycemia Protocol Enoxaparin Sodium 40 mg 06/29/23 09:00 06/30/23 08:47 Enoxaparin 40 Mg/0.4 Ml Syringe SUB-Q 40 mg DAILY TRINIDAD Administration Glucagon 1 mg 06/28/23 22:52 Glucagon For Inj 1 Mg Vial IM PRN PRN Hypoglycemia Protocol Glucose 15 gm 06/28/23 22:52 Glucose Oral Gel 15 Gm Of Glucse In 37.5 Gm Tube PO PRN PRN Hypoglycemia Protocol Metronidazole 500 mg in 100 mls @ 100 mls/hr 06/29/23 04:00 06/30/23 05:45 Flagyl 500 Mg/Iso Soln 100 Ml IVPB Infused Q8H [facility] Infusion Dextrose 1,000 mls @ 100 mls/hr 06/28/23 22:52 Dextrose 5% 1,000 Ml IVPB PRN PRN Hypoglycemia Protocol Vancomycin HCl 1,750 mg in 500 mls @ 250 mls/hr 06/30/23 09:00 06/30/23 08:46 Vancomycin 1,750 Mg/Ns 500 Ml IVPB 250 mls/hr Q12H TRINIDAD Administration Levofloxacin/Dextrose 750 mg in 150 mls @ 100 mls/hr 06/30/23 10:00 Levaquin 750 Mg/D5w 150 Ml IVPB Q24H TRINIDAD Insulin Aspart 2 - 4 units 06/28/23 23:00 06/29/23 20:53 Insulin Aspart (*Bkc) 100 Units/Ml SUB-Q 2 units HS TRINIDAD Administration Protocol Insulin Aspart 4 - 8 units 06/29/23 08:00 06/30/23 08:46 Insulin Aspart (*Bkc) 100 Units/Ml SUB-Q Not Given TIDWM [facility] Protocol Insulin Glargine 50 units 06/29/23 09:00 06/30/23 08:47 Insulin Glargine (*Bkc) 100 Units/Ml SUB-Q 50 units DAILY TRINIDAD Administration Simvastatin 10 mg 06/29/23 09:00 06/30/23 08:47 Simvastatin 10 Mg Tablet PO 10 mg DAILY TIRNIDAD Administration Radiology Results: ITS Impressions Foot X-Ray 06/28/23 17:33 IMPRESSION: No acute osseous finding in the left foot. Venous Doppler Study 06/28/23 18:22 IMPRESSION: Patent left lower extremity veins. No evidence of deep venous thrombosis. Labs Labs: Laboratory Results - last 24 hr 06/29/23 06/29/23 06/29/23 11:26 16:55 20:07 Creatinine Estim Creat Clear Calc Estimated GFR POC Capillary Glucose 220 H 174 H 238 H Vancomycin Trough 06/30/23 06/30/23 06:45 06:59 Creatinine 0.50 L Estim Creat Clear Calc 127 Estimated GFR > 60 POC Capillary Glucose 180 H Vancomycin Trough 13.9 Quality VTE Prophylaxis VTE prophylaxis: pharmacologic ordered
[2023-06-30 09:35] VITALS: O2SAT 95
[2023-06-30 10:03] LABS: Alanine Aminotransferase 24 U/L (6-35); Albumin Level 3.6 g/dL (3.5-5.1); Alkaline Phosphatase 85 U/L (38-126); Anion Gap 5 mmol/L (4-12); Aspartate Amino Transferase 38 U/L (14-36); Bilirubin,Total 0.7 mg/dL (0.2-1.3); Blood Urea Nitrogen 16 mg/dL (7-17); Carbon Dioxide 23 mmol/L (22-30); Chloride 107 mmol/L (98-107); Estimated CRCL calculation 127 ml/min; Estimated Glomerular Filt Rate > 60; Glucose 190 mg/dL (65-110); Sodium 135 mmol/L (137-145)
[2023-06-30 10:37] LABS: Basophils Absolute Auto 0.1 K/mm3 (0.0-0.1); Basophils Percent Auto 1.4 % (0.2-1.2); Eosinophils Absolute Auto 0.7 K/mm3 (0-0.3); Eosinophils Percent Auto 9.5 % (0-4.4); Hematocrit 42.9 % (37.0-47.0); Hemoglobin 13.4 g/dL (12.0-15.0); Immature Granulocyte Absolute 0.04 K/mm3 (0.00-0.031); Immature Granulocyte Percent A 0.5 % (0-0.5); Lymphocytes Absolute Auto 1.56 K/mm3 (0.9-3.2); Lymphocytes Percent Auto 20.6 % (18.3-44.2); Mean Corpuscular HGB Conc 31.2 g/dl (32-36); Mean Corpuscular Hemoglobin 26.7 pg (26-34); Mean Corpuscular Volume 85.5 fl (80-100); Mean Platelet Volume 9.4 fl (7.4-10.4); Monocytes Absolute Auto 0.8 K/mm3 (0.1-0.6); Monocytes Percent Auto 9.9 % (2.6-8.5); Neutrophils Absolute Auto 4.4 K/mm3 (1.3-6.7); Neutrophils Percent Auto 58.1 % (45.5-73.1); Platelet Count Result 241 k/mm3 (150-375); Red Blood Count 5.02 M/mm3 (4.2-5.4); Red Cell Distribution Width 14.2 % (11.5-14.5); White Blood Count 7.6 K/mm3 (4.5-10.0)
[2023-06-30 11:16] LABS: Glucose Point of Care 200 mg/dl (65-105)
[2023-06-30] MEDS: levoFLOXacin 750 MG/D5W 150 ML 750 MG/150 ML BAG 100 MG IVPB (11:59)
[2023-06-30 14:00] VITALS: BP 137/65; PULSE 78; RESP 16; TEMP 36; O2SAT 97
--- NOTE | 2023-06-30 14:08 | P.HP_ITS ---
H&P: HPI History of Present Illness Date/Time: 06/30/23 14:08 Chief Complaint: Swollen draining red second toe. Duration several days prior to admission. Fevers and chills prior to being admitted. [facility] Past Medical History Medical History (Updated 06/30/23 @ 14:13 by Zander Bazzi JR, MD) Cellulitis of left toe Gastroesophageal reflux disease Hyperlipidemia Hypertension Insulin dependent type 2 diabetes mellitus Osteoarthritis Osteomyelitis Surgical History Surgical History (Updated 06/28/23 @ 22:46 by Michelle Shelby PA-C) History of amputation of toe Right 3rd toe. Partial amputation left 1st toe for osteomyelitis. 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 History of tubal ligation Family History Family History Mother Hypertension Family history of rheumatoid arthritis Cerebrovascular accident, Onset Age: 55 Social History Social History (Updated 06/28/23 @ 22:49 by Michelle Shelby PA-C) Social History: Surrogate medical decision maker: Giovanny Su, spouse. Code status: Full code. Smoking status: Never smoker Alcohol intake: never Substance use: never Substance use type: does not use Do You Feel Safe in your Home?: Yes Lack of Transportation: No Lack of Food: Never True Current Housing: I Have Housing Concerned About Future Housing: Decline to Answer Difficulty Paying Gas/Electric Bills: Decline to Answer Difficulty Paying for Meds: Decline to Answer Currently Unemployed: Decline to Answer Education: Decline to Answer Difficulty w/ Childcare or Family Care: Decline to Answer Living arrangements: with family Spiritual care concerns: No Meds Home Medications and Allergies Home Medications Medication Instructions Recorded Confirmed Type albuterol sulfate 90 mcg/actuation 2 puff inhalation Q4H PRN 04/15/19 06/28/23 Rx aerosol inhaler (ProAir HFA) shortness of breath or wheezing #8.5 grams citalopram 40 mg tablet 40 mg PO DAILY #90 tabs 03/04/22 06/28/23 Rx aspirin 81 mg tablet,delayed 81 mg PO DAILY 04/03/22 06/28/23 History release simvastatin 10 mg tablet 10 mg PO DAILY #90 tabs 07/17/23 04/06/24 Rx doxycycline hyclate 100 mg capsule 100 mg PO BID 06/02/23 06/28/23 History tirzepatide 5 mg/0.5 mL 5 mg subcut WEEKLY 06/02/23 06/28/23 History subcutaneous pen injector (Evelina) amlodipine 10 mg tablet 10 mg PO DAILY #90 tabs 06/04/23 06/28/23 Rx insulin lispro-aabc 100 unit/mL See Rx Instructions .Route .COMPLEX 06/06/23 06/28/23 History subcutaneous solution (Lyumjev U-100 Insulin) ibuprofen 800 mg tablet 800 mg PO TID PRN Pain #270 tabs 06/23/23 06/28/23 Rx insulin glargine U-300 conc 300 50 unit subcut DAILY 06/28/23 06/28/23 History unit/mL (1.5 mL) subcutaneous pen (Toujeo SoloStar U-300 Insulin) Allergies Allergy/AdvReac Type Severity Reaction Status Date / Time cefuroxime Allergy Unknown Joint pain Verified 06/28/23 17:13 Vital Signs Vital Signs - 24 hr 06/29/23 20:00 06/29/23 21:13 06/30/23 05:59 Temperature 36.4 C L 36.1 C L Pulse Rate 77 74 Respiratory Rate 18 16 Blood Pressure 122/64 120/54 L Pulse Oximetry 98 96 94 Oxygen Delivery Room Air 06/30/23 09:35 06/30/23 08:00 Temperature Pulse Rate Respiratory Rate Blood Pressure Pulse Oximetry 95 Oxygen Delivery Room Air Room Air Exam Skin: Wounds: wounds noted Other: full thickness ulcer to the distal left second digit with edema and erythema noted. Sagittal plane contracture noted to the left second digit. H&P: Results Labs Labs: Short CBC 06/30/23 Range/Units 10:25 WBC 7.6 (4.5-10.0) K/mm3 Hgb 13.4 (12.0-15.0) g/dL Hct 42.9 (37.0-47.0) % Plt Count 241 (150-375) k/mm3 BMP 06/30/23 06/30/23 06:59 06:59 Sodium 135 L Potassium 4.0 Chloride 107 Carbon Dioxide 23 BUN 16 Creatinine 0.50 L 0.50 L Glucose 190 H Calcium 9.0 Liver Function 06/30/23 Range/Units 06:59 Total Bilirubin 0.7 (0.2-1.3) mg/dL AST 38 H (14-36) U/L ALT 24 (6-35) U/L Alkaline Phosphatase 85 (38-126) U/L Albumin 3.6 (3.5-5.1) g/dL Assessment and Plan Assessment and plan (1) Diabetic foot infection: Code(s): E11.628 - Type 2 diabetes mellitus with other skin complications; L08.9 - Local infection of the skin and subcutaneous tissue, unspecified Status: Acute (2) Cellulitis of left toe: Code(s): L03.032 - Cellulitis of left toe Status: Acute Plan 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 Consent signed. No anesthesia will be required. I will recommend IV antibiotics for an additional day and oral abx upon d/c.
[2023-06-30 16:29] LABS: Glucose Point of Care 161 mg/dl (65-105)
[2023-06-30 20:00] VITALS: O2SAT 97
[2023-06-30 20:35] VITALS: BP 147/69; PULSE 74; RESP 20; TEMP 36.3; O2SAT 97
[2023-06-30 20:51] LABS: Glucose Point of Care 164 mg/dl (65-105)
[2023-07-01] MEDS: ACETAMINOPHEN 325 MG TABLET 650 MG PO ×3 (03:05→22:04)
[2023-07-01] MEDS: metroNIDAZOLE 500 MG/ISO 100ML 500 MG/100 ML BAG 100 MG IVPB ×3 (03:10→21:54)
[2023-07-01 04:20] VITALS: BP 142/66; PULSE 78; RESP 18; TEMP 36.5; O2SAT 96
[2023-07-01 06:26] LABS: Basophils Absolute Auto 0.1 K/mm3 (0.0-0.1); Eosinophils Absolute Auto 0.8 K/mm3 (0-0.3); Eosinophils Percent Auto 8.3 % (0-4.4); Hematocrit 42.7 % (37.0-47.0); Immature Granulocyte Absolute 0.05 K/mm3 (0.00-0.031); Immature Granulocyte Percent A 0.5 % (0-0.5); Lymphocytes Absolute Auto 1.73 K/mm3 (0.9-3.2); Mean Corpuscular HGB Conc 30.4 g/dl (32-36); Mean Corpuscular Hemoglobin 26.2 pg (26-34); Mean Corpuscular Volume 86.1 fl (80-100); Mean Platelet Volume 9.8 fl (7.4-10.4); Monocytes Percent Auto 10.4 % (2.6-8.5); Neutrophils Absolute Auto 5.9 K/mm3 (1.3-6.7); Neutrophils Percent Auto 61.8 % (45.5-73.1); Platelet Count Result 262 k/mm3 (150-375); Red Blood Count 4.96 M/mm3 (4.2-5.4); White Blood Count 9.6 K/mm3 (4.5-10.0)
[2023-07-01 07:24] LABS: Alanine Aminotransferase 27 U/L (6-35); Albumin Level 3.8 g/dL (3.5-5.1); Alkaline Phosphatase 89 U/L (38-126); Anion Gap 6 mmol/L (4-12); Aspartate Amino Transferase 31 U/L (14-36); Bilirubin,Total 0.6 mg/dL (0.2-1.3); Blood Urea Nitrogen 12 mg/dL (7-17); Carbon Dioxide 24 mmol/L (22-30); Chloride 104 mmol/L (98-107); Estimated CRCL calculation 127 ml/min; Estimated Glomerular Filt Rate > 60; Glucose 140 mg/dL (65-110); Potassium 3.7 mmol/L (3.4-5.0); Sodium 134 mmol/L (137-145)
[2023-07-01 08:09] LABS: Glucose Point of Care 164 mg/dl (65-105)
[2023-07-01] MEDS: ASPIRIN 81 MG ENTERIC TABLET PO (09:05)
[2023-07-01] MEDS: amLODIPine BESYLATE 5 MG TABLET 10 MG PO (09:05)
[2023-07-01] MEDS: CITALOPRAM HYDROBROMIDE 20 MG TABLET 40 MG PO (09:06)
[2023-07-01] MEDS: SIMVASTATIN 10 MG TABLET PO (09:06)
[2023-07-01] MEDS: ENOXAPARIN 40 MG/0.4 ML SYRINGE SUB-Q (09:08)
[2023-07-01] MEDS: INSULIN GLARGINE (*BKC) 100 UNITS/ML 55 UNITS SUB-Q (09:13)
[2023-07-01] MEDS: VANCOMYCIN 1,750 MG/NS 500 ML 1,750 MG/500 ML BAG 250 MG IVPB (09:20)
--- NOTE | 2023-07-01 10:20 | P.CDI_ITS ---
CDI Query Clarification Request Documentation in the medical record indicates that this patient has: BMI 44.3 Based on your medical judgement can you further clarify in the progress notes the diagnosis associated with these findings such as: * Overweight * Obesity * Morbid obesity * Other condition (please specify) * None of the above/not applicable <Heavenly Sellers RN - Last Filed: 07/01/23 10:24> Clarified Diagnosis Clarified Diagnosis: Obesity <Isela Camarena APRN - Last Filed: 07/01/23 12:54>
[2023-07-01 11:54] LABS: Glucose Point of Care 188 mg/dl (65-105)
--- NOTE | 2023-07-01 12:54 | P.PNIM_ITS ---
Progress Note: A&P Assessment and Plan (1) Cellulitis of left lower extremity: Code(s): L03.116 - Cellulitis of left lower limb Status: Acute Assessment and Plan: 06/29/23: * Patient has history of type 2 diabetes mellitus and a recent partial amputation of the left hallux performed on 06/06/[address] Bazzi. * Swelling redness and warmth near amputation site suspicious for cellulitis * White blood cell count initially 12.8, lactate was 1.7 * White blood cell down to 10.0 today * Blood cultures obtained and are pending * Continue cefepime, Flagyl, and vancomycin * General surgery consulted 06/30/23: * Blood culture showing no growth to date on preliminary read * Continue Flagyl and vancomycin, will switch cefepime to Levaquin * Podiatry consulted 07/01/23: * Plan to transition to oral antibiotics tomorrow, continue with IV antibiotics today * Blood culture still showing no growth on preliminary read * Wound evaluated by Podiatry and they plan to do a flexor tenotomy to release the contracture that will allow for wound healing * Plan for discharge in the morning (2) Diabetic foot infection: Code(s): E11.628 - Type 2 diabetes mellitus with other skin complications; L08.9 - Local infection of the skin and subcutaneous tissue, unspecified Status: Acute Assessment and Plan: 06/29/23: * See above (3) Insulin dependent type 2 diabetes mellitus: Code(s): E11.9 - Type 2 diabetes mellitus without complications; Z79.4 - cleat feeder (current) use of insulin Status: Acute Assessment and Plan: 06/29/23: * Blood sugars ranging 127-156 * Last hemoglobin A1c 7.5 * Accu-Cheks AC and HS * Diabetic diet ordered * High-dose sliding scale ordered * Hypoglycemic protocol in place * Will hold Mounjaro and Lyumjev insulin sliding scale which are the home medications 06/30/23: * Blood sugars ranging 180-238 * Will order Lantus 55 units for tonight * Continue with current treatment plan 07/01/23: * Blood sugars ranging 140-188 * Continue with current treatment plan (4) Hypertension: Code(s): I10 - Essential (primary) hypertension Status: Acute Assessment and Plan: 06/29/23: * Patient's blood pressure ranging blood pressure ranging 127/61 to 129/70 * Continue amlodipine 06/30/23: * Blood pressures remain controlled * Continue current treatment Time Spent With Patient Time with patient: 15 - 25 minutes Subjective Date/time seen: 07/01/23 12:54 Interval history: 06/29/23: This is a 57-year-old female a significant past medical history of type 2 diabetes, hypertension, hyperlipidemia presented to the hospital for 624 for evaluation of the left foot wound. She had a partial amputation of the left hallux per Dr. Bazzi for chronic osteomyelitis. She reported increased body aches, chills, swelling, redness at the amputation site extending to the 2nd toe. She also reports that her blood glucose has been running higher than usual the last few days. Workup in the hospital includes a foot x-ray which shows no acute osseous findings in the left foot. Venous Doppler study was negative for any acute DVT. Labs initially revealing white blood cell count of 12.8, blood sugar ranging 127-156, lactic acid 1.9, liver enzymes are normal, C reactive protein 6.5. Respiratory panel was negative for influenza a and B, RSV, and COVID. Blood cultures were obtained and are pending. Patient was started on cefepime, Flagyl, and vancomycin. On examination today patient is alert and oriented x3, lying in the bed. Patient denies any fever, chills, nausea, vomiting, diarrhea, abdominal pain, chest pain, shortness breath. She also denies pain in her right foot. Patient endorses drainage and swelling near the amputation site. Labs today reveal white blood count 10.0, sodium 136, hemoglobin A1c is 7 point, Mag was 2.2, blood sugars ranging 156-174. General surgery was consulted. 06/30/23: She denies any new complaints today. Antibiotics switched to Levaquin Flagyl and vancomycin. Cefepime was DC'd. Podiatry to see patient today. Patient states there is still drainage coming form the wound. 07/01/2023: Labs today showing a sodium of 134, blood sugars ranging 140-186, otherwise essentially normal. Podiatry seen patient yesterday and will perform a flexor tenotomy to release the contracture. We will continue with IV antibiotics and then transitioned to oral upon discharge. Review of Systems Review of Systems: 12 systems were reviewed and are negativ e except for as per HPI. All systems reviewed & are unremarkable except as noted in HPI and below Constitutional: Constitutional: Reports as per HPI and Reports no additional constitutional complaints Eyes: Eyes: Reports as per HPI and Reports no additional eye complaints ENT: Reports system reviewed and no additional complaints, except as documented and Reports as per HPI Cardiovascular: Cardiovascular: Reports as per HPI and Reports no additional cardiovascular complaints Respiratory: Respiratory: Reports as per HPI and Reports no additional respiratory complaints Gastrointestinal: Gastrointestinal: Reports as per HPI and Reports no additional gastrointestinal complaints Genitourinary: Genitourinary: Reports no additional female genitourinary complaints and Reports as per HPI Musculoskeletal: Musculoskeletal: Reports no additional musculoskeletal compla ints and Reports as per HPI Integumentary/Breasts: Skin/Breast: Reports system reviewed and no additional complaints, except as docu and Reports as per HPI Neurologic: Reports system reviewed and no additional complaints, except as documented and Reports as per HPI Psychiatric: Psychiatric: Reports no additional psychiatric complaints and Reports as per HPI Exam Narrative: General: In no acute distress, well nourished Head: atraumatic, no encephalopathy Eyes: EOMI, PERRLA, sclera clear ENT: moist mucous membranes, nasal passages clear Neck: supple, no JVD, no adenopathy, trachea midline Cardiac: Normal S1 and S2. RRR. No murmur, gallops or friction rubs, peripheral pulses intact. Respiratory: Lungs clear to auscultation, no adventitious lung sounds, currently on room air Gastrointestinal: soft, non-distended, non-tender, normoactive bowel sounds. : voiding without difficulty. Extremities: moves all extremities well, no edema, good ROM, strength 5/5 Skin: Right foot surgical wound with drainage noted on bandage Neuro: Alert and oriented x4, cranial nerves intact, no neuro deficits. Psych: normal mood, normal affect, interactive Objective Data Vital Signs Vital Signs: Vital Signs - 24 hr 06/30/23 14:00 06/30/23 20:00 06/30/23 20:35 Temperature 96.8 F L 97.4 F L Pulse Rate 78 74 Respiratory Rate 16 20 Blood Pressure 137/65 147/69 H Pulse Oximetry 97 97 97 Oxygen Delivery Room Air 07/01/23 04:20 07/01/23 08:00 Temperature 97.7 F Pulse Rate 78 Respiratory Rate 18 Blood Pressure 142/66 H Pulse Oximetry 96 Oxygen Delivery Room Air Intake/Output Intake/Output: Intake & Output 06/28/23 06/29/23 06/30/23 07/01/23 23:59 23:59 23:59 23:59 Intake Total 900 3600 3042 380.5 Balance 900 3600 3042 380.5 Meds/Results Medications: Active Medications Generic Name Dose Route Start Last Admin Trade Name Freq PRN Reason Stop Dose Admin Acetaminophen 650 mg 06/28/23 22:52 07/01/23 09:05 Acetaminophen 325 Mg Tablet PO 650 mg Q6H PRN Administration Mild Pain (1-3) or Fever Albuterol 2 puff 06/28/23 22:53 Albuterol Sulfate (*Sp) Aerosol 1 Puff INHALATION Q4H PRN shortness of breath or wheezing Amlodipine Besylate 10 mg 06/29/23 09:00 07/01/23 09:05 Amlodipine Besylate 5 Mg Tablet PO 10 mg DAILY [facility] Administration Aspirin 81 mg 06/29/23 09:00 07/01/23 09:05 Aspirin 81 Mg Enteric Tablet PO 81 mg DAILY [facility] Administration Citalopram Hydrobromide 40 mg 06/29/23 09:00 07/01/23 09:06 Citalopram Hydrobromide 20 Mg Tablet PO 40 mg DAILY [facility] Administration Dextrose 12.5 gm 06/28/23 22:52 Dextrose 50% 25 Gm/50 Ml Syringe IV PUSH PRN PRN Hypoglycemia Protocol Doxycycline Hyclate 100 mg 07/02/23 09:00 Doxycycline Hyclate 100 Mg Tablet PO Q12HR [facility] Enoxaparin Sodium 40 mg 06/29/23 09:00 07/01/23 09:08 Enoxaparin 40 Mg/0.4 Ml Syringe SUB-Q 40 mg DAILY [facility] Administration Glucagon 1 mg 06/28/23 22:52 Glucagon For Inj 1 Mg Vial IM PRN PRN Hypoglycemia Protocol Glucose 15 gm 06/28/23 22:52 Glucose Oral Gel 15 Gm Of Glucse In 37.5 Gm Tube PO PRN PRN Hypoglycemia Protocol Metronidazole 500 mg in 100 mls @ 100 mls/hr 06/29/23 04:00 07/01/23 04:10 Flagyl 500 Mg/Iso Soln 100 Ml IVPB 07/01/23 23:59 Infused Q8H [facility] Infusion Dextrose 1,000 mls @ 100 mls/hr 06/28/23 22:52 Dextrose 5% 1,000 Ml IVPB PRN PRN Hypoglycemia Protocol Vancomycin HCl 1,750 mg in 500 mls @ 250 mls/hr 06/30/23 09:00 07/01/23 09:35 Vancomycin 1,750 Mg/Ns 500 Ml IVPB 07/01/23 23:59 0 mls/hr Q12H [facility] Infusion Levofloxacin/Dextrose 750 mg in 150 mls @ 100 mls/hr 06/30/23 10:00 06/30/23 11:59 Levaquin 750 Mg/D5w 150 Ml IVPB 07/01/23 23:59 100 mls/hr Q24H [facility] Administration Insulin Aspart 2 - 4 units 06/28/23 23:00 06/30/23 21:27 Insulin Aspart (*Bkc) 100 Units/Ml SUB-Q Not Given HS [facility] Protocol Insulin Aspart 4 - 8 units 06/29/23 08:00 07/01/23 12:12 Insulin Aspart (*Bkc) 100 Units/Ml SUB-Q Not Given TIDWM [facility] Protocol Insulin Glargine 55 units 07/01/23 09:00 07/01/23 09:13 Insulin Glargine (*Bkc) 100 Units/Ml SUB-Q 55 units DAILY [facility] Administration Levofloxacin 750 mg 07/02/23 09:00 Levofloxacin 750 Mg Tablet PO DAILY [facility] Simvastatin 10 mg 06/29/23 09:00 07/01/23 09:06 Simvastatin 10 Mg Tablet PO 10 mg DAILY [facility] Administration Radiology Results: ITS Impressions Foot X-Ray 06/28/23 17:33 IMPRESSION: No acute osseous finding in the left foot. Venous Doppler Study 06/28/23 18:22 IMPRESSION: Patent left lower extremity veins. No evidence of deep venous thrombosis. Labs Labs: Laboratory Results - last 24 hr 06/30/23 06/30/23 07/01/23 16:23 20:37 05:49 WBC 9.6 RBC 4.96 Hgb 13.0 Hct 42.7 MCV 86.1 MCH 26.2 MCHC 30.4 L RDW 14.0 Plt Count 262 MPV 9.8 Immature Gran % (Auto) 0.5 Neut % (Auto) 61.8 Lymph % (Auto) 18.0 L [place] % (Auto) 10.4 H Eos % (Auto) 8.3 H Baso % (Auto) 1.0 Lymph # (Auto) 1.73 [place] # (Auto) 1.0 H Eos # (Auto) 0.8 H Baso # (Auto) 0.1 Abs Immat Gran (auto) 0.05 H Absolute Neuts (auto) 5.9 Absolute Nucleated RBC 0.000 Nucleated RBC % 0.0 Sodium 134 L Potassium 3.7 Chloride 104 Carbon Dioxide 24 Anion Gap 6 BUN 12 Creatinine 0.50 L Estim Creat Clear Calc 127 Estimated GFR > 60 Glucose 140 H POC Capillary Glucose 161 H 164 H Calcium 9.0 Total Bilirubin 0.6 AST 31 ALT 27 Alkaline Phosphatase 89 Total Protein 7.0 Albumin 3.8 07/01/23 07/01/23 07:56 11:12 WBC RBC Hgb Hct MCV MCH MCHC RDW Plt Count MPV Immature Gran % (Auto) Neut % (Auto) Lymph % (Auto) [place] % (Auto) Eos % (Auto) Baso % (Auto) Lymph # (Auto) [place] # (Auto) Eos # (Auto) Baso # (Auto) Abs Immat Gran (auto) Absolute Neuts (auto) Absolute Nucleated RBC Nucleated RBC % Sodium Potassium Chloride Carbon Dioxide Anion Gap BUN Creatinine Estim Creat Clear Calc Estimated GFR Glucose POC Capillary Glucose 164 H 188 H Calcium Total Bilirubin AST ALT Alkaline Phosphatase Total Protein Albumin Quality VTE Prophylaxis VTE prophylaxis: pharmacologic ordered
[2023-07-01] MEDS: levoFLOXacin 750 MG/D5W 150 ML 750 MG/150 ML BAG 100 MG IVPB (13:37)
[2023-07-01 14:00] VITALS: BP 136/75; PULSE 74; RESP 18; TEMP 36.4; O2SAT 95
--- NOTE | 2023-07-01 14:44 | P.PN_ITS ---
Progress Note: A&P Assessment and Plan (1) Cellulitis of left toe: Code(s): L03.032 - Cellulitis of left toe <Zander Bazzi JR, MD - Last Filed: 07/01/23 15:42> Status: Acute <Zander Bazzi JR, MD - Last Filed: 07/01/23 15:42> Assessment and Plan: cellulitis of the left second digit with a diabetic neuropathic ul ceration. Responding well to local woundcare/ flexor tenotomy and IV abx. May be d/c tomorrow on oral antibiotics the patient already has her prescription at home for oral antibiotics. Continue with daily dressing changer with 4x4 inch gauze, and skin tape and Bactroban ointment. <Zander Bazzi JR, MD - Last Filed: 07/01/23 15:42> (2) Diabetic foot infection: Code(s): E11.628 - Type 2 diabetes mellitus with other skin complications; L08.9 - Local infection of the skin and subcutaneous tissue, unspecified <Zander Bazzi JR, MD - Last Filed: 07/01/23 15:42> Status: Acute <Zander Bazzi JR, MD - Last Filed: 07/01/23 15:42> Assessment and Plan: Oral antibiotics and Bactroban upon d/c. <Zander Bazzi JR, MD - Last Filed: 07/01/23 15:42> Assessment and Plan: See above. <Zander Bazzi JR, MD - Last Filed: 07/01/23 15:42> Subjective Date/time seen: 07/01/23 14:44 <Zander Bazzi JR, MD - Last Filed: 07/01/23 15:42> Interval history: s/p flexor tenotomy to treat a transfer lesion to the left second digit after a partial hallux amputation. no Constitutional symptoms <Zander Bazzi JR, MD - Last Filed: 07/01/23 15:42> s/p flexor tenotomy to treat a transfer lesion to the left second digit after a partial hallux . <Isela Camarena APRN - Last Filed: 07/01/23 15:58> Review of Systems Review of Systems: All systems reviewed & are unremarkable except as noted in HPI and below <Isela Camarena APRN - Last Filed: 07/01/23 15:58> Constitutional: Comments: No FCNV. <Zander Bazzi JR, MD - Last Filed: 07/01/23 15:42> Exam Extrem: Other: left second digit in a rectus position. Full thickness ulceration still present to the distal left second digit. Near complete resolution of edema and erythema to the left second digit. No purulence drainage. Serous/sanguineous drainage still present to the distal aspect of the digit. Left hallux amputation site will coapted with no signs of infection. <Zander Bazzi JR, MD - Last Filed: 07/01/23 15:42> Objective Data Vital Signs Vital Signs: Vital Signs - 24 hr 06/30/23 20:00 06/30/23 20:35 07/01/23 04:20 Temperature 36.3 C L 36.5 C Pulse Rate 74 78 Respiratory Rate 20 18 Blood Pressure 147/69 H 142/66 H Pulse Oximetry 97 97 96 Oxygen Delivery Room Air 07/01/23 08:00 07/01/23 14:00 Temperature 36.4 C Pulse Rate 74 Respiratory Rate 18 Blood Pressure 136/75 Pulse Oximetry 95 Oxygen Delivery Room Air <Zander Bazzi JR, MD - Last Filed: 07/01/23 15:42> Intake/Output Intake/Output: Intake & Output 06/28/23 06/29/23 06/30/23 07/01/23 23:59 23:59 23:59 23:59 Intake Total 900 3600 3192 500.5 Balance 900 3600 3192 500.5 <Zander Bazzi JR, MD - Last Filed: 07/01/23 15:42> Meds/Results Medications: Active Medications Generic Name Dose Route Start Last Admin Trade Name Freq PRN Reason Stop Dose Admin Acetaminophen 650 mg 06/28/23 22:52 07/01/23 09:05 Acetaminophen 325 Mg Tablet PO 650 mg Q6H PRN Administration Mild Pain (1-3) or Fever Albuterol 2 puff 06/28/23 22:53 Albuterol Sulfate (*Sp) Aerosol 1 Puff INHALATION Q4H PRN shortness of breath or wheezing Amlodipine Besylate 10 mg 06/29/23 09:00 07/01/23 09:05 Amlodipine Besylate 5 Mg Tablet PO 10 mg DAILY [facility] Administration Aspirin 81 mg 06/29/23 09:00 07/01/23 09:05 Aspirin 81 Mg Enteric Tablet PO 81 mg DAILY [facility] Administration Citalopram Hydrobromide 40 mg 06/29/23 09:00 07/01/23 09:06 Citalopram Hydrobromide 20 Mg Tablet PO 40 mg DAILY [facility] Administration Dextrose 12.5 gm 06/28/23 22:52 Dextrose 50% 25 Gm/50 Ml Syringe IV PUSH PRN PRN Hypoglycemia Protocol Doxycycline Hyclate 100 mg 07/02/23 09:00 Doxycycline Hyclate 100 Mg Tablet PO Q12HR [facility] Enoxaparin Sodium 40 mg 06/29/23 09:00 07/01/23 09:08 Enoxaparin 40 Mg/0.4 Ml Syringe SUB-Q 40 mg DAILY [facility] Administration Glucagon 1 mg 06/28/23 22:52 Glucagon For Inj 1 Mg Vial IM PRN PRN Hypoglycemia Protocol Glucose 15 gm 06/28/23 22:52 Glucose Oral Gel 15 Gm Of Glucse In 37.5 Gm Tube PO PRN PRN Hypoglycemia Protocol Metronidazole 500 mg in 100 mls @ 100 mls/hr 06/29/23 04:00 07/01/23 04:10 Flagyl 500 Mg/Iso Soln 100 Ml IVPB 07/01/23 23:59 Infused Q8H [facility] Infusion Dextrose 1,000 mls @ 100 mls/hr 06/28/23 22:52 Dextrose 5% 1,000 Ml IVPB PRN PRN Hypoglycemia Protocol Vancomycin HCl 1,750 mg in 500 mls @ 250 mls/hr 06/30/23 09:00 07/01/23 09:35 Vancomycin 1,750 Mg/Ns 500 Ml IVPB 07/01/23 23:59 0 mls/hr Q12H [facility] Infusion Levofloxacin/Dextrose 750 mg in 150 mls @ 100 mls/hr 06/30/23 10:00 07/01/23 13:37 Levaquin 750 Mg/D5w 150 Ml IVPB 07/01/23 23:59 100 mls/hr Q24H [facility] Administration Insulin Aspart 2 - 4 units 06/28/23 23:00 06/30/23 21:27 Insulin Aspart (*Bkc) 100 Units/Ml SUB-Q Not Given [facility] Protocol Insulin Aspart 4 - 8 units 06/29/23 08:00 07/01/23 12:12 Insulin Aspart (*Bkc) 100 Units/Ml SUB-Q Not Given [facility] Protocol Insulin Glargine 55 units 07/01/23 09:00 07/01/23 09:13 Insulin Glargine (*Bkc) 100 Units/Ml SUB-Q 55 units DAILY [facility] Administration Levofloxacin 750 mg 07/02/23 09:00 Levofloxacin 750 Mg Tablet PO DAILY [facility] Simvastatin 10 mg 06/29/23 09:00 07/01/23 09:06 Simvastatin 10 Mg Tablet PO 10 mg DAILY [facility] Administration <Zander Bazzi JR, MD - Last Filed: 07/01/23 15:42> Radiology Results: ITS Impressions Foot X-Ray 06/28/23 17:33 IMPRESSION: No acute osseous finding in the left foot. Venous Doppler Study 06/28/23 18:22 IMPRESSION: Patent left lower extremity veins. No evidence of deep venous thrombosis. <Zander Bazzi JR, MD - Last Filed: 07/01/23 15:42> Labs Labs: Laboratory Results - last 24 hr 06/30/23 06/30/23 07/01/23 16:23 20:37 05:49 WBC 9.6 RBC 4.96 Hgb 13.0 Hct 42.7 MCV 86.1 MCH 26.2 MCHC 30.4 L RDW 14.0 Plt Count 262 MPV 9.8 Immature Gran % (Auto) 0.5 Neut % (Auto) 61.8 Lymph % (Auto) 18.0 L [place] % (Auto) 10.4 H Eos % (Auto) 8.3 H Baso % (Auto) 1.0 Lymph # (Auto) 1.73 [place] # (Auto) 1.0 H Eos # (Auto) 0.8 H Baso # (Auto) 0.1 Abs Immat Gran (auto) 0.05 H Absolute Neuts (auto) 5.9 Absolute Nucleated RBC 0.000 Nucleated RBC % 0.0 Sodium 134 L Potassium 3.7 Chloride 104 Carbon Dioxide 24 Anion Gap 6 BUN 12 Creatinine 0.50 L Estim Creat Clear Calc 127 Estimated GFR > 60 Glucose 140 H POC Capillary Glucose 161 H 164 H Calcium 9.0 Total Bilirubin 0.6 AST 31 ALT 27 Alkaline Phosphatase 89 Total Protein 7.0 Albumin 3.8 07/01/23 07/01/23 07:56 11:12 WBC RBC Hgb Hct MCV MCH MCHC RDW Plt Count MPV Immature Gran % (Auto) Neut % (Auto) Lymph % (Auto) [place] % (Auto) Eos % (Auto) Baso % (Auto) Lymph # (Auto) [place] # (Auto) Eos # (Auto) Baso # (Auto) Abs Immat Gran (auto) Absolute Neuts (auto) Absolute Nucleated RBC Nucleated RBC % Sodium Potassium Chloride Carbon Dioxide Anion Gap BUN Creatinine Estim Creat Clear Calc Estimated GFR Glucose POC Capillary Glucose 164 H 188 H Calcium Total Bilirubin AST ALT Alkaline Phosphatase Total Protein Albumin <Zander Bazzi JR, MD - Last Filed: 07/01/23 15:42>
[2023-07-01 16:09] LABS: Glucose Point of Care 178 mg/dl (65-105)
[2023-07-01 20:45] VITALS: BP 125/60; PULSE 71; RESP 18; TEMP 35.8; O2SAT 96
[2023-07-01 21:39] LABS: Vancomycin Trough 14.1 ug/mL (10.0-20.0)
[2023-07-01 21:49] LABS: Glucose Point of Care 225 mg/dl (65-105)
[2023-07-01] MEDS: INSULIN ASPART (*BKC) 100 UNITS/ML SUB-Q (21:55)
[2023-07-02 04:45] VITALS: BP 125/59; PULSE 72; RESP 18; TEMP 36.1; O2SAT 96
[2023-07-02 06:14] LABS: Basophils Absolute Auto 0.1 K/mm3 (0.0-0.1); Eosinophils Absolute Auto 0.8 K/mm3 (0-0.3); Eosinophils Percent Auto 9.4 % (0-4.4); Hematocrit 42.8 % (37.0-47.0); Hemoglobin 13.1 g/dL (12.0-15.0); Immature Granulocyte Absolute 0.06 K/mm3 (0.00-0.031); Immature Granulocyte Percent A 0.7 % (0-0.5); Lymphocytes Absolute Auto 1.74 K/mm3 (0.9-3.2); Lymphocytes Percent Auto 19.6 % (18.3-44.2); Mean Corpuscular HGB Conc 30.6 g/dl (32-36); Mean Corpuscular Hemoglobin 26.3 pg (26-34); Mean Corpuscular Volume 85.8 fl (80-100); Mean Platelet Volume 9.5 fl (7.4-10.4); Monocytes Absolute Auto 0.9 K/mm3 (0.1-0.6); Monocytes Percent Auto 10.4 % (2.6-8.5); Neutrophils Absolute Auto 5.2 K/mm3 (1.3-6.7); Neutrophils Percent Auto 58.9 % (45.5-73.1); Platelet Count Result 266 k/mm3 (150-375); Red Blood Count 4.99 M/mm3 (4.2-5.4); Red Cell Distribution Width 14.2 % (11.5-14.5); White Blood Count 8.9 K/mm3 (4.5-10.0)
[2023-07-02 06:23] LABS: Alanine Aminotransferase 48 U/L (6-35); Albumin Level 3.7 g/dL (3.5-5.1); Alkaline Phosphatase 89 U/L (38-126); Anion Gap 5 mmol/L (4-12); Aspartate Amino Transferase 60 U/L (14-36); Bilirubin,Total 0.5 mg/dL (0.2-1.3); Blood Urea Nitrogen 14 mg/dL (7-17); Calcium 9.3 mg/dL (8.4-10.2); Carbon Dioxide 29 mmol/L (22-30); Chloride 106 mmol/L (98-107); Estimated CRCL calculation 108 ml/min; Estimated Glomerular Filt Rate > 60; Glucose 151 mg/dL (65-110); Potassium 3.5 mmol/L (3.4-5.0); Sodium 140 mmol/L (137-145)
[2023-07-02 08:02] LABS: Glucose Point of Care 164 mg/dl (65-105)
[2023-07-02] MEDS: SIMVASTATIN 10 MG TABLET PO (09:30)
[2023-07-02] MEDS: amLODIPine BESYLATE 5 MG TABLET 10 MG PO (09:30)
[2023-07-02] MEDS: CITALOPRAM HYDROBROMIDE 20 MG TABLET 40 MG PO (09:30)
--- NOTE | 2023-07-02 09:30 | P.DS_ITS ---
DS: Admitting Diagnosis Discharge Date 07/02/23 Admitting Diagnosis Cellulitis of left lower limb Diabetic foot infection Insulin-dependent type 2 diabetes mellitus Hypertension DS: Discharge Diagnosis Discharge Diagnosis (1) Cellulitis of left toe: Code(s): L03.032 - Cellulitis of left toe Status: Acute (2) Diabetic foot infection: Code(s): E11.628 - Type 2 diabetes mellitus with other skin complications; L08.9 - Local infection of the skin and subcutaneous tissue, unspecified Status: Acute DS: Summary Hospital Course Reason for hospitalization: Cellulitis of left lower limb Diabetic foot infection Insulin-dependent type 2 diabetes mellitus Hypertension Hospital Course: 06/29/23: This is a 57-year-old female a significant past medical history of type 2 diabetes, hypertension, hyperlipidemia presented to the hospital for 624 for evaluation of the left foot wound.? She had a partial amputation of the left hallux per Dr. Bazzi for chronic osteomyelitis.? She reported increased body aches, chills, swelling, redness at the amputation site extending to the 2nd toe.? She also reports that her blood glucose has been running higher than usual the last few days.? Workup in the hospital includes a foot x-ray which shows no acute osseous findings in the left foot.? Venous Doppler study was negative for any acute DVT.? Labs initially revealing white blood cell count of 12.8, blood sugar ranging 127-156, lactic acid 1.9, liver enzymes are normal, C reactive protein 6.5.? Respiratory panel was negative for influenza a and B, RSV, and COVID.? Blood cultures were obtained and are pending.? Patient was started on cefepime, Flagyl, and vancomycin. On examination today patient is alert and oriented x3, lying in the bed.? Patient denies any fever, chills, nausea, vomiting, diarrhea, abdominal pain, chest pain, shortness breath.? She also denies pain in her right foot.? Patient endorses drainage and swelling near the amputation site.? Labs today reveal white blood count 10.0, sodium 136, hemoglobin A1c is 7 point, Mag was 2.2, blood sugars ranging 156-174.? General surgery was consulted. 06/30/23: She denies any new complaints today.? Antibiotics switched to Levaquin Flagyl and vancomycin.? Cefepime was DC'd.? Podiatry to see patient today. Patient states there is still drainage coming form the wound. 07/01/2023: Labs today showing a sodium of 134, blood sugars ranging 140-186, otherwise essentially normal.? Podiatry seen patient yesterday and will perform a flexor tenotomy to release the contracture.? We will continue with IV antibiotics and then transitioned to oral upon discharge. 07/02/23: Patient denies any new complaints today. He labs today essentially unremarkable other than her blood sugar ranging 151-225, AST 60, ALT 48. She is stable for discharge at this time. She will follow-up with the coat check attendant and her primary care. She was sent home with prescriptions for doxycycline and Levaquin. Final diagnosis: Cellulitis, diabetic foot infection Status at Discharge Cognitive/behavioral status at discharge: Alert and oriented x4 Functional status at discharge: independent ambulation Overall status at discharge: patient is progressing back to baseline Time Spent with Patient Time attestation: Total time spent providing and/or coordinating discharge services: Time spent: Greater than 30 minutes Exam Narrative: General: In no acute distress, well nourished Head: atraumatic, no encephalopathy Eyes: EOMI, PERRLA, sclera clear ENT: moist mucous membranes, nasal passages clear Neck: supple, no JVD, no adenopathy, trachea midline Cardiac: Normal S1 and S2. RRR. No murmur, gallops or friction rubs, peripheral pulses intact. Respiratory: Lungs clear to auscultation, no adventitious lung sounds, currently on room air Gastrointestinal: soft, non-distended, non-tender, normoactive bowel sounds. : voiding without difficulty. Extremities: moves all extremities well, no edema, good ROM, strength 5/5 Skin: Right foot surgical wound with drainage noted on bandage Neuro: Alert and oriented x4, cranial nerves intact, no neuro deficits. Psych: normal mood, normal affect, interactive DS: Data Data Completed and Pending Completed studies during hospitalization: Venous Doppler study Foot x-ray Pending studies at discharge: Blood cultures Labs on day of discharge: Labs from last 24 hours 07/02/23 07/02/23 07/01/23 07:51 05:25 20:52 WBC 8.9 RBC 4.99 Hgb 13.1 Hct 42.8 MCV 85.8 MCH 26.3 MCHC 30.6 L RDW 14.2 Plt Count 266 MPV 9.5 Immature Gran % (Auto) 0.7 H Neut % (Auto) 58.9 Lymph % (Auto) 19.6 [place] % (Auto) 10.4 H Eos % (Auto) 9.4 H Baso % (Auto) 1.0 Lymph # (Auto) 1.74 [place] # (Auto) 0.9 H Eos # (Auto) 0.8 H Baso # (Auto) 0.1 Abs Immat Gran (auto) 0.06 H Absolute Neuts (auto) 5.2 Absolute Nucleated RBC 0.000 Nucleated RBC % 0.0 Sodium 140 Potassium 3.5 Chloride 106 Carbon Dioxide 29 Anion Gap 5 BUN 14 Creatinine 0.60 L Estim Creat Clear Calc 108 Estimated GFR > 60 Glucose 151 H POC Capillary Glucose 164 H Calcium 9.3 Total Bilirubin 0.5 AST 60 H ALT 48 H Alkaline Phosphatase 89 Total Protein 6.0 L Albumin 3.7 Vancomycin Trough 14.1 07/01/23 07/01/23 07/01/23 20:48 16:05 11:12 WBC RBC Hgb Hct MCV MCH MCHC RDW Plt Count MPV Immature Gran % (Auto) Neut % (Auto) Lymph % (Auto) [place] % (Auto) Eos % (Auto) Baso % (Auto) Lymph # (Auto) [place] # (Auto) Eos # (Auto) Baso # (Auto) Abs Immat Gran (auto) Absolute Neuts (auto) Absolute Nucleated RBC Nucleated RBC % Sodium Potassium Chloride Carbon Dioxide Anion Gap BUN Creatinine Estim Creat Clear Calc Estimated GFR Glucose POC Capillary Glucose 225 H 178 H 188 H Calcium Total Bilirubin AST ALT Alkaline Phosphatase Total Protein Albumin Vancomycin Trough Preliminary micro results at discharge 06/28/23 18:55 Blood Culture - Preliminary Blood 06/28/23 18:55 Blood Culture - Preliminary Blood Procedures/Treatments: Status post 3 flexor tenotomy to the left 2nd digit of her left foot Discharge Plan Discharge Attending physician on discharge: Anthony Horowitz Consulting providers: Zander Bazzi; Alma Gordon Discharging Clinician: Isela Camarena Anticipated Discharge Date/Time: 07/02/23 09:03 Patient Disposition: Home, Self-Care Activity: as tolerated Diet: as tolerated Discharge Instructions: * Finish all your antibiotics as directed. * Follow up with podiatry within 2 weeks * Follow up with PCP in 1 week. * Your blood sugars are ranging 151-225, we increased your lantus to 55 untis this admission. Patient Instructions: Antibiotic Form, Doxycycline (By mouth), Levofloxacin (By mouth) Patient Language: Turkish Stand Alone Forms: General Discharge Information Follow-up/Referrals: Zander Bazzi JR, MD [Physician] - 2 Weeks Arturo Walker, [Primary Care Provider] - 1 Week Discharge Medications: New insulin glargine [Lantus U-100 Insulin] 100 unit/mL Solution 55 unit subcut DAILY Qty: 1 0RF levofloxacin 750 mg tablet 750 mg PO DAILY Qty: 6 0RF Continued aspirin 81 mg Tablet,Delayed Release (Dr/Ec) 81 mg PO DAILY Mounjaro 5 mg/0.5 mL Pen Injector 5 mg SUBCUT WEEKLY Patient Comments: PT TAKES ON FRIDAY Lyumjev U-100 Insulin 100 unit/mL Solution See Rx Instructions .ROUTE .COMPLEX Rx Instructions: Sliding scale BID albuterol sulfate [ProAir HFA] 90 mcg/actuation HFA aerosol inhaler 2 puff INHALATION Q4H PRN (Reason: shortness of breath or wheezing) Qty: 8.5 4RF citalopram 40 mg tablet 40 mg PO DAILY Qty: 90 4RF simvastatin 10 mg tablet 10 mg PO DAILY Qty: 90 1RF amlodipine 10 mg tablet 10 mg PO DAILY Qty: 90 1RF ibuprofen 800 mg tablet 800 mg PO TID PRN (Reason: Pain) Qty: 270 1RF doxycycline hyclate 100 mg capsule 100 mg PO BID Qty: 12 0RF Discontinued insulin glargine U-300 conc [Toujeo SoloStar U-300 Insulin] 300 unit/mL (1.5 mL) Insulin Pen 50 unit SUBCUT DAILY Date of admission: 06/29/23 08:50 Primary Care Provider: Arturo Walker Admitting Provider: Jv York Attending physician on admission: Jv York Condition: Improved Quality VTE Prophylaxis VTE prophylaxis: pharmacologic ordered
[2023-07-02] MEDS: DOXYCYCLINE HYCLATE 100 MG TABLET PO (09:31)
[2023-07-02] MEDS: ASPIRIN 81 MG ENTERIC TABLET PO (09:31)
[2023-07-02] MEDS: levoFLOXacin 750 MG TABLET PO (09:31)
[2023-07-02] MEDS: INSULIN GLARGINE (*BKC) 100 UNITS/ML 55 UNITS SUB-Q (09:31)
--- NOTE | 2023-07-02 11:09 | P.PN_ITS ---
Progress Note: A&P Assessment and Plan (1) Cellulitis of left toe: Code(s): L03.032 - Cellulitis of left toe Status: Acute Assessment and Plan: D/c on oral antibiotics per internal medicine Ulcer healing along with cellulitis s/p flexor tenotomy and with local wound care. D/c with wound care instructions. I will Rx Bactroban to be applied to the wound daily with 4x4 gauze, kerlix roll and skin tape. Use surgical shoe for ambulation. Patient already scheduled in my office next Friday for a follow up. Dr. Bazzi Subjective Date/time seen: 07/02/23 11:09 Interval history: s/p flexor tenotomy to treat a diabetic neuropathic ulceration left second toe. No FCNV. Anxious for discharge. Exam Skin: Other: wound to the distal left second digit now 100 % granular with resolving edema and erythema to the entire second digit. Sanguinous drainage only. No purulence. The second digit is now in a rectus position s/p tenotomy. Objective Data Vital Signs Vital Signs: Vital Signs - 24 hr 07/01/23 14:00 07/01/23 20:45 07/01/23 20:00 Temperature 36.4 C 35.8 C L Pulse Rate 74 71 Respiratory Rate 18 18 Blood Pressure 136/75 125/60 Pulse Oximetry 95 96 Oxygen Delivery Room Air 07/02/23 04:45 07/02/23 09:25 Temperature 36.1 C L Pulse Rate 72 Respiratory Rate 18 Blood Pressure 125/59 L Pulse Oximetry 96 Oxygen Delivery Room Air Intake/Output Intake/Output: Intake & Output 06/29/23 06/30/23 07/01/23 07/02/23 23:59 23:59 23:59 23:59 Intake Total 3600 3192 1812.5 100 Balance 3600 3192 1812.5 100 Meds/Results Medications: Active Medications Generic Name Dose Route Start Last Admin Trade Name Freq PRN Reason Stop Dose Admin Acetaminophen 650 mg 06/28/23 22:52 07/01/23 22:04 Acetaminophen 325 Mg Tablet PO 650 mg Q6H PRN Administration Mild Pain (1-3) or Fever Albuterol 2 puff 06/28/23 22:53 Albuterol Sulfate (*Sp) Aerosol 1 Puff INHALATION Q4H PRN shortness of breath or wheezing Amlodipine Besylate 10 mg 06/29/23 09:00 07/02/23 09:30 Amlodipine Besylate 5 Mg Tablet PO 10 mg DAILY TRINIDAD Administration Aspirin 81 mg 06/29/23 09:00 07/02/23 09:31 Aspirin 81 Mg Enteric Tablet PO 81 mg DAILY TRINIDAD Administration Citalopram Hydrobromide 40 mg 06/29/23 09:00 07/02/23 09:30 Citalopram Hydrobromide 20 Mg Tablet PO 40 mg DAILY TRINIDAD Administration Dextrose 12.5 gm 06/28/23 22:52 Dextrose 50% 25 Gm/50 Ml Syringe IV PUSH PRN PRN Hypoglycemia Protocol Doxycycline Hyclate 100 mg 07/02/23 09:00 07/02/23 09:31 Doxycycline Hyclate 100 Mg Tablet PO 100 mg Q12HR TRINIDAD Administration Enoxaparin Sodium 40 mg 06/29/23 09:00 07/02/23 09:32 Enoxaparin 40 Mg/0.4 Ml Syringe SUB-Q Not Given DAILY COUNTS INCLUDE 234 BEDS AT THE [facility] Glucagon 1 mg 06/28/23 22:52 Glucagon For Inj 1 Mg Vial IM PRN PRN Hypoglycemia Protocol Glucose 15 gm 06/28/23 22:52 Glucose Oral Gel 15 Gm Of Glucse In 37.5 Gm Tube PO PRN PRN Hypoglycemia Protocol Dextrose 1,000 mls @ 100 mls/hr 06/28/23 22:52 Dextrose 5% 1,000 Ml IVPB PRN PRN Hypoglycemia Protocol Insulin Aspart 2 - 4 units 06/28/23 23:00 07/01/23 21:55 Insulin Aspart (*Bkc) 100 Units/Ml SUB-Q 2 units HS TRINIDAD Administration Protocol Insulin Aspart 4 - 8 units 06/29/23 08:00 07/02/23 09:24 Insulin Aspart (*Bkc) 100 Units/Ml SUB-Q Not Given TIDWM COUNTS INCLUDE 234 BEDS AT THE [facility] Protocol Insulin Glargine 55 units 07/01/23 09:00 07/02/23 09:31 Insulin Glargine (*Bkc) 100 Units/Ml SUB-Q 55 units DAILY TRINIDAD Administration Levofloxacin 750 mg 07/02/23 09:00 07/02/23 09:31 Levofloxacin 750 Mg Tablet PO 750 mg DAILY TRINIDAD Administration Simvastatin 10 mg 06/29/23 09:00 07/02/23 09:30 Simvastatin 10 Mg Tablet PO 10 mg DAILY TRINIDAD Administration Radiology Results: ITS Impressions Foot X-Ray 06/28/23 17:33 IMPRESSION: No acute osseous finding in the left foot. Venous Doppler Study 06/28/23 18:22 IMPRESSION: Patent left lower extremity veins. No evidence of deep venous thrombosis. Labs Labs: Laboratory Results - last 24 hr 07/01/23 07/01/23 07/01/23 11:12 16:05 20:48 WBC RBC Hgb Hct MCV MCH MCHC RDW Plt Count MPV Immature Gran % (Auto) Neut % (Auto) Lymph % (Auto) [place] % (Auto) Eos % (Auto) Baso % (Auto) Lymph # (Auto) [place] # (Auto) Eos # (Auto) Baso # (Auto) Abs Immat Gran (auto) Absolute Neuts (auto) Absolute Nucleated RBC Nucleated RBC % Sodium Potassium Chloride Carbon Dioxide Anion Gap BUN Creatinine Estim Creat Clear Calc Estimated GFR Glucose POC Capillary Glucose 188 H 178 H 225 H Calcium Total Bilirubin AST ALT Alkaline Phosphatase Total Protein Albumin Vancomycin Trough 07/01/23 07/02/23 07/02/23 20:52 05:25 07:51 WBC 8.9 RBC 4.99 Hgb 13.1 Hct 42.8 MCV 85.8 MCH 26.3 MCHC 30.6 L RDW 14.2 Plt Count 266 MPV 9.5 Immature Gran % (Auto) 0.7 H Neut % (Auto) 58.9 Lymph % (Auto) 19.6 [place] % (Auto) 10.4 H Eos % (Auto) 9.4 H Baso % (Auto) 1.0 Lymph # (Auto) 1.74 [place] # (Auto) 0.9 H Eos # (Auto) 0.8 H Baso # (Auto) 0.1 Abs Immat Gran (auto) 0.06 H Absolute Neuts (auto) 5.2 Absolute Nucleated RBC 0.000 Nucleated RBC % 0.0 Sodium 140 Potassium 3.5 Chloride 106 Carbon Dioxide 29 Anion Gap 5 BUN 14 Creatinine 0.60 L Estim Creat Clear Calc 108 Estimated GFR > 60 Glucose 151 H POC Capillary Glucose 164 H Calcium 9.3 Total Bilirubin 0.5 AST 60 H ALT 48 H Alkaline Phosphatase 89 Total Protein 6.0 L Albumin 3.7 Vancomycin Trough 14.1
[2023-07-02] MEDS: MUPIROCIN 2% OINT 22 GM TUBE 1 APPLIC TOPICAL (12:02)
--- NOTE | 2023-07-02 13:18 | PC.NURSE ---
I have reviewed Chelly's charting and agree with her findings. She was reminded of care plans and will complete them before discharging pt out of the system.
--- NOTE | 2023-07-31 13:51 | OP_ITS ---
This report was moved to the correct visit, [id number] on 08/05/2023. Original report was signed by Zander Bazzi Jr, DPM 07/31/2023 [id number]. Procedure Note - Brief Procedure Note - Brief Date of procedure: 06/30/23 Diabetic ulceration left second digit with cellulitis secondary to a claw toe deformity Procedure performed: Percutaneous flexor tenotomy second digit left foot Surgeon: Zander Bazzi JR, DPM Findings: Full thickness tissue loss to distal second digit left foot with sagittal plane contrature noted to the second digit Description of procedure: I cleaned the affected area with Betadine. Anesthetized the digit with 2% Lidocaine plain. I utilized a 6100 blade to perform a percutaneous incision along the plantar aspect of the second digit proximal to the proximal interphalangeal joint. I released the long flexor tendon. I reapproximated the incision with 4.0 Prolene in simple interrupted suture fashion technique. Immediate reduction of the contracture noted to the second digit was noted. I dressed with 4x4 gauze, Kerlix roll and skin tape. Implants: None Drains: No Packing: No Pathology: None sent Complications: No immediate complications Condition: Stable This report may have been done utilizing a voice recognition system. Attempts have been made to correct errors. However, there may be uncorrected grammatical, spelling, and recognition errors present. Report Initialized date/time: Zander Bazzi Jr, DPM 07/31/23 / 1353 Electronically signed by: Zander Bazzi Jr, DPM 07/31/23 [facility]
--- NOTE | 2023-08-01 08:27 | WPDHPUPDATE1 ---
History and Physical Update Update Date/Time: 06/06/23 08:27 History and Physical has been reviewed, including an updated exam of the patient. There are NO changes in the patient's condition. Risks, benefits, and alternatives have been discussed and questions answered. Patient agrees to proceed with procedure. Partial amputation left hallux for management of osteomyelitis of the distal phalanx of the left hallux.
== END 2023-07-02 12:10 | disposition home or self-care (01) | DRG 629 ==
LOC: ANHED 18:35 → ANH3MEDSUR 19:02
PROVIDERS: Physician Assistant; Admitting Provider Internal Medicine; Emergency Provider Physician Assistant; PCP Family Medicine; Visit Provider Nurse Practitioner Acute Care
DX: E11.628 Type 2 diabetes mellitus with other skin complications (principal); Z68.41 Body mass index [BMI] 40.0-44.9, adult; L03.032 Cellulitis of left toe; E11.621 Type 2 diabetes mellitus with foot ulcer; L97.529 Non-pressure chronic ulcer of other part of left foot with unspecified severity; I10 Essential (primary) hypertension; E78.5 Hyperlipidemia, unspecified; Z20.822 Contact with and (suspected) exposure to COVID-19; M19.90 Unspecified osteoarthritis, unspecified site; K21.9 Gastro-esophageal reflux disease without esophagitis; E66.9 Obesity, unspecified; E11.42 Type 2 diabetes mellitus with diabetic polyneuropathy; Z96.653 Presence of artificial knee joint, bilateral; Z79.82 Long term (current) use of aspirin; Z89.421 Acquired absence of other right toe(s)
CPT/HCPCS: 36415; 73630; 80048; 80053; 80202; 82565; 82948; 83036; 83605; 83735; 85025; 85027; 85610; 85652; 85730; 86140; 87040; 87637; 93971; 96365; 96366; 96367; 96375; 99285; A9270; G0378; J0692; J1650; J1815; J1836; J1956; J3370

== ENCOUNTER 2023-08-25 08:29 | Inpatient (IN) | payer MEDICARE, OTHER, SELFPAY ==
[2023-08-25] VITALS (13 sets, daily range): BP systolic 145–176; BP diastolic 58–86; PULSE 90–111; RESP 16–25; TEMP 36.3–36.7; O2SAT 87–99; BMI 43.2
--- NOTE | ~2023-08-25 | US_ITS ---
EXAMINATION: US venous doppler [facility] DATE: 08/25/2023 22:51 INDICATION: lower extremity edema . TECHNIQUE: Grayscale images without and with compression and Doppler images of the bilateral lower ex tremity veins were obtained. COMPARISON: 06/28/2023 FINDINGS: The right common femoral vein, profunda (deep) femoral vein, femoral vein, popliteal vein, peroneal v ein, posterior tibial veins, and greater saphenous vein are patent. The left common femoral vein, profunda (deep) femoral vein, femoral vein, popliteal vein, peroneal v ein, posterior tibial veins, and greater saphenous vein are patent. IMPRESSION: Patent bilateral lower extremity veins. No evidence of deep venous thrombosis. Reviewed, dictated and finalized at location K.
--- NOTE | ~2023-08-25 | CT_ITS ---
EXAMINATION: CTA chest PE protocol DATE: 08/26/2023 14:28 INDICATION: Shortness of breath and cough. TECHNIQUE: Computed tomography angiography (CTA) of the chest was performed with 100 mL Omnipaque-350 intravenous contrast timed to evaluate the pulmonary arteries. Coronal maximum intensity projection 3D-reconstructions were created by the technologist. Automated exposure control and iterative reconst ruction technique were employed. The dose-length product was 931.01 mGy-cm. COMPARISON: None. FINDINGS: There is mild atelectasis in the lungs. There are clusters of nodules in the upper lobes, c onsistent with pneumonia. There is mucous plugging bilaterally. No pleural effusion. There is left at rial enlargement of the heart. There are coronary artery calcifications. There is no pulmonary embolu s. There is mild right hilar and mediastinal lymphadenopathy, likely reactive. There are surgical micha nges of the gastroesophageal junction. There are old healed bilateral rib fractures. There is mild th oracic spondylosis. IMPRESSION: 1. No pulmonary embolus. 2. Mild pneumonia in the upper lobes. 3. Bilateral mucous plugging. 4. Mild right hilar and mediastinal lymphadenopathy, likely reactive. Reviewed, dictated and finalized at location A.
--- NOTE | ~2023-08-25 | XR_ITS ---
EXAMINATION: XR chest 2V DATE: 08/25/2023 09:11 INDICATION: Shortness of breath. Cough. TECHNIQUE: Frontal and lateral views of the chest were obtained. COMPARISON: None. FINDINGS: There is no pneumonia, pleural effusion, or pneumothorax. The heart size is normal. There a re old healed bilateral rib fractures. IMPRESSION: 1. No acute cardiopulmonary disease. Reviewed, dictated and finalized at location A.
--- NOTE | 2023-08-25 08:41 | ECG_ITS ---
[facility] [address] Test Date: 2023-08-25 Pat Name: Heavenly Su Department: Room: Gender: F Routeman: JAVAD : 1965 Requested By: Kyler Guillermo Order Number: [id number] [place] MD: Johnson Nunes M.D. Measurements Intervals [place] Rate: 95 P: 28 ID: [id number] QRS: -15 QRSD: 80 T: 71 QT: 349 QTc: 441 Interpretive Statements SINUS RHYTHM POOR R-WAVE PROGRESSION NONSPECIFIC ST & T-WAVE ABNORMALITY ABNORMAL ECG No previous ECG available for comparison Electronically Signed On 08-25-2023 14:47:10 CDT by Johnson Nunes M.D.
[2023-08-25 09:02] LABS: Basophils Absolute Auto 0.1 K/mm3 (0.0-0.1); Basophils Percent Auto 0.7 % (0.2-1.2); Eosinophils Absolute Auto 0.4 K/mm3 (0-0.3); Eosinophils Percent Auto 3.5 % (0-4.4); Hematocrit 49.4 % (37.0-47.0); Hemoglobin 15.4 g/dL (12.0-15.0); Immature Granulocyte Absolute 0.04 K/mm3 (0.00-0.031); Immature Granulocyte Percent A 0.4 % (0-0.5); Lymphocytes Absolute Auto 1.42 K/mm3 (0.9-3.2); Lymphocytes Percent Auto 13.2 % (18.3-44.2); Mean Corpuscular HGB Conc 31.2 g/dl (32-36); Mean Corpuscular Hemoglobin 26.8 pg (26-34); Mean Corpuscular Volume 86.1 fl (80-100); Mean Platelet Volume 9.8 fl (7.4-10.4); Monocytes Percent Auto 9.3 % (2.6-8.5); Neutrophils Absolute Auto 7.8 K/mm3 (1.3-6.7); Neutrophils Percent Auto 72.9 % (45.5-73.1); Platelet Count Result 234 k/mm3 (150-375); Red Blood Count 5.74 M/mm3 (4.2-5.4); White Blood Count 10.8 K/mm3 (4.5-10.0)
[2023-08-25 09:12] LABS: Alanine Aminotransferase 38 U/L (6-35); Albumin Level 4.3 g/dL (3.5-5.1); Alkaline Phosphatase 118 U/L (38-126); Anion Gap 8 mmol/L (4-12); Aspartate Amino Transferase 43 U/L (14-36); Bilirubin,Total 0.8 mg/dL (0.2-1.3); Blood Urea Nitrogen 16 mg/dL (7-17); Carbon Dioxide 24 mmol/L (22-30); Chloride 107 mmol/L (98-107); Estimated CRCL calculation 106 ml/min; Estimated Glomerular Filt Rate > 60; Glucose 191 mg/dL (65-110); Potassium 3.9 mmol/L (3.4-5.0); Sodium 139 mmol/L (137-145)
[2023-08-25] MEDS: methylPREDNISolone SOD SUCC 125 MG VIAL IV PUSH (09:25)
[2023-08-25] MEDS: IPRATROPIUM BR 0.02% INH SOLN 0.5 MG/2.5 ML VIAL 1.5 MG INHALATION (09:28)
[2023-08-25] MEDS: ALBUTEROL SULFATE NEB 2.5 MG/3 ML INH 15 MG INHALATION (09:28)
--- NOTE | 2023-08-25 09:53 | ED.SOB ---
HPI - SOB/Dyspnea General Chief Complaint: Shortness of Breath/Dyspnea Stated Complaint: sob Time Seen by Provider: 08/25/23 08:36 History of Present Illness HPI Narrative: Patient is a 57-year-old female who presents ER with shortness of breath. Ongoing for 3 days. Associated with sinus congestion. Mild cough. No chest pain or chest pressure. Patient found to be hypoxic on arrival here at 87% on room air. She has been using her inhaler without improvement. Dyspnea is worsened by exertion. Related Data Home Medications Medication Instructions Recorded Confirmed aspirin 81 mg tablet,delayed 81 mg PO DAILY 04/03/22 08/25/23 release tirzepatide 5 mg/0.5 mL 5 mg subcut WEEKLY 06/02/23 08/25/23 subcutaneous pen injector (Mounjaro) insulin lispro-aabc 100 unit/mL See Rx Instructions .Route .COMPLEX 06/06/23 08/25/23 subcutaneous solution (Lyumjev U-100 Insulin) doxycycline hyclate 100 mg capsule 100 mg PO Q12H 08/25/23 08/25/23 insulin glargine U-300 conc 300 70 unit subcut DAILY 08/25/23 08/25/23 unit/mL (3 mL) subcutaneous pen (Toujeo Max U-300 SoloStar) simvastatin 10 mg tablet 10 mg PO HS 08/25/23 08/25/23 Allergies Allergy/AdvReac Type Severity Reaction Status Date / Time cefuroxime Allergy Unknown Joint pain Verified 08/25/23 14:44 Review of Systems Review of Systems: All systems reviewed & are unremarkable except as noted in HPI and below Constitutional: Constitutional: Reports no additional constitutional complaints ENT: Reports as per HPI Cardiovascular: Cardiovascular: Reports no additional cardiovascular complaints Respiratory: Respiratory: Reports cough, Reports dyspnea and Reports wheezing Gastrointestinal: Gastrointestinal: Reports no additional gastrointestinal complaints Genitourinary: Genitourinary: Reports no additional female genitourinary complaints [facility] Past Medical History Medical History (Updated 08/25/23 @ 16:52 by Michelle Shelby PA-C) Asthma Gastroesophageal reflux disease Hyperlipidemia Hypertension Insulin dependent type 2 diabetes mellitus Osteoarthritis Osteomyelitis Surgical History Surgical History History of amputation of toe Right 3rd toe. Partial amputation left 1st toe for osteomyelitis. 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 History of tubal ligation Family History Family History Mother Family history of rheumatoid arthritis Hypertension Cerebrovascular accident, Onset Age: 57 Father Pneumonia due to COVID-19 virus Social History Social History Social History: Surrogate medical decision maker: Giovanny Su, spouse. Code status: Full code. Smoking status: Never smoker Alcohol intake: never Substance use: never Substance use type: does not use Do You Feel Safe in your Home?: Yes Lack of Transportation: No Lack of Food: Never True Current Housing: I Have Housing Concerned About Future Housing: No Difficulty Paying Gas/Electric Bills: No Difficulty Paying for Meds: No Currently Unemployed: No Education: Decline to Answer Difficulty w/ Childcare or Family Care: No Living arrangements: with family Spiritual care concerns: No Exam Narrative: GENERAL: Well-appearing, obese, and in no acute distress. HEAD: Normocephalic, atraumatic. ENT: Mucous membranes moist. NECK: Supple. CHEST: Mild respiratory distress with diffuse expiratory wheezing. HEART: Regular rate and rhythm. Normal peripheral pulses. ABDOMEN: Soft, nontender, nondistended. EXTREMITIES: Normal
[2023-08-25 10:14] LABS: Influenza A QL RT-PCR Negative (Negative); Influenza B QL RT-PCR Negative (Negative); RSV RNA, RT-PCR Negative (Negative); SARS-CoV-2 RNA PCR Negative (Negative)
[2023-08-25] MEDS: MAGNESIUM SULF 2 GM/WATER 50ML 2 GM/50 ML BAG IVPB (13:11)
--- NOTE | 2023-08-25 13:48 | PC.NURSE ---
Pt resting no increase in SOB noted, hoarseness intermittent. Tolerating po fluids. Denies chest pain, states I feel much better than when I came in
--- NOTE | 2023-08-25 14:31 | ADMGEN ---
This patient, Heavenly Su, was admitted to [facility] Surg Room 328-01. Patient/family oriented to hospital policies and general routines including ID bracelet, bed and alarms, visiting hours, pain management, procedures, bathroom and other care routines, personal items, smoking policy, room service/diet, and visiting hours. Information on how to activate the Rapid Response Team has been discussed. Patient/Family are encouraged to report perceived risks to care and to ask questions if they do not understand what they are told or what they should do.
[2023-08-25 16:19] LABS: Glucose Point of Care 248 mg/dl (65-105)
--- NOTE | 2023-08-25 16:39 | PM.IMHP ---
H&P: HPI History of Present Illness Date/Time: 08/25/23 18:00 Chief Complaint: Shortness of breath. Narrative: This is a pleasant 57-year-old female with asthma, insulin-dependent type 2 diabetes mellitus, hypertension, and hyperlipidemia who presented to the emergency department for evaluation of shortness of breath. The last 3 days she has developed a mild cough, sinus congestion, and shortness of breath on exertion with occasional wheezing. She has been using her rescue inhaler which seems to be providing her with little relief. Historically she does not have troubles with allergies this time a year however she reports having similar symptoms last summer around the same time. She denies fever, chills, sweats, syncope, near syncope, sinus congestion, sore throat, exertional chest pain, pleuritic pain, palpitations, orthopnea, nausea, vomiting, diarrhea, and calf pain. In the ED: She was afebrile on arrival. Blood pressures have been running in the 150s to 160s systolic. She has been in a sinus tachycardia in the low 100 since receiving a nebulizer treatment. Labs were significant for a WBC count of 10.8, hemoglobin 15.4, glucose 191, AST 43, ALT 38. She tested negative for influenza, RSV, and COVID. Chest x-ray showed no acute cardiopulmonary disease. In addition to the nebulizer treatment, she received methylprednisolone 125 mg IV and magnesium sulfate 2 g IV. She is being admitted in this setting for further treatment. Review of Systems Review of Systems: 12 systems were reviewed and are negative except for as per HPI. FORMERLY [facility] Past Medical History Medical History (Updated 08/25/23 @ 16:52 by Michelle Shelby PA-C) Asthma Gastroesophageal reflux disease Hyperlipidemia Hypertension Insulin dependent type 2 diabetes mellitus Osteoarthritis Osteomyelitis Surgical History Surgical History History of amputation of toe Right 3rd toe. Partial amputation left 1st toe for osteomyelitis. 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 History of tubal ligation Family History Family History Mother Family history of rheumatoid arthritis Hypertension Cerebrovascular accident, Onset Age: 57 Father Pneumonia due to COVID-19 virus Social History Social History Social History: Surrogate medical decision maker: Giovanny Su, spouse. Code status: Full code. Smoking status: Never smoker Alcohol intake: never Substance use: never Substance use type: does not use Do You Feel Safe in your Home?: Yes Lack of Transportation: No Lack of Food: Never True Current Housing: I Have Housing Concerned About Future Housing: No Difficulty Paying Gas/Electric Bills: No Difficulty Paying for Meds: No Currently Unemployed: No Education: Decline to Answer Difficulty w/ Childcare or Family Care: No Living arrangements: with family Spiritual care concerns: No Meds Home Medications and Allergies Home Medications Medication Instructions Recorded Confirmed Type albuterol sulfate 90 mcg/actuation 2 puff inhalation Q4H PRN 04/15/19 08/25/23 Rx aerosol inhaler (ProAir HFA) shortness of breath or wheezing #8.5 grams citalopram 40 mg tablet 40 mg PO DAILY #90 tabs 03/04/22 08/25/23 Rx aspirin 81 mg tablet,delayed 81 mg PO DAILY 04/03/22 08/25/23 History release tirzepatide 5 mg/0.5 mL 5 mg subcut WEEKLY 06/02/23 08/25/23 History subcutaneous pen injector (Evelina) amlodipine 10 mg tablet 10 mg PO DAILY #90 tabs 06/04/23 08/25/23 Rx insulin lispro-aabc 100 unit/mL See Rx
[2023-08-25] MEDS: INSULIN ASPART (*BKC) 100 UNITS/ML SUB-Q ×2 (18:15→20:59)
[2023-08-25] MEDS: methylPREDNISolone SOD SUCC 125 MG VIAL 60 MG IV PUSH (18:17)
[2023-08-25] MEDS: SIMVASTATIN 10 MG TABLET PO (21:02)
[2023-08-25] MEDS: DOXYCYCLINE HYCLATE 100 MG TABLET PO (21:02)
[2023-08-25 22:08] LABS: Glucose Point of Care 302 mg/dl (65-105)
[2023-08-26] VITALS (14 sets, daily range): BP systolic 145–163; BP diastolic 58–70; PULSE 81–95; RESP 13–20; TEMP 35.7–36.6; O2SAT 93–100
[2023-08-26] MEDS: IPRATROPIUM 0.5 MG/ALBUTEROL SULFATE 2.5 MG AMPUL.NEB 3 ML INHALATION ×4 (01:34→19:46)
[2023-08-26 06:42] LABS: Hematocrit 46.5 % (37.0-47.0); Hemoglobin 14.2 g/dL (12.0-15.0); Mean Corpuscular HGB Conc 30.5 g/dl (32-36); Mean Corpuscular Hemoglobin 26.5 pg (26-34); Mean Corpuscular Volume 86.8 fl (80-100); Platelet Count Result 282 k/mm3 (150-375); Red Blood Count 5.36 M/mm3 (4.2-5.4); Red Cell Distribution Width 14.8 % (11.5-14.5); White Blood Count 19.5 K/mm3 (4.5-10.0)
[2023-08-26 07:04] LABS: Anion Gap 9 mmol/L (4-12); Blood Urea Nitrogen 19 mg/dL (7-17); Calcium 8.7 mg/dL (8.4-10.2); Carbon Dioxide 24 mmol/L (22-30); Chloride 105 mmol/L (98-107); Estimated CRCL calculation 106 ml/min; Estimated Glomerular Filt Rate > 60; Glucose 187 mg/dL (65-110); Magnesium 2.4 mg/dL (1.6-2.3); Potassium 4.2 mmol/L (3.4-5.0); Sodium 138 mmol/L (137-145)
[2023-08-26 07:35] LABS: Glucose Point of Care 162 mg/dl (65-105)
--- NOTE | 2023-08-26 08:07 | PM.IMPN ---
Progress Note: A&P Assessment and Plan (1) Community acquired bacterial pneumonia: Code(s): J15.9 - Unspecified bacterial pneumonia Status: Acute Assessment and Plan: c/o shortness of breath, new oxygen requirement, congested, rhonchi present CT chest shows no PE, mild pneumonia in the upper lobs, bilateral mucous plugging and reactive lymphadenopathy Starting Levaquin today wean oxygen as tolerated sputum culture ordered Guaifenesin BID Duo/nebs q 6 hours Incentive spirometry and PEP ordered Mucomyst nebs for mucous plugging (2) Asthma exacerbation: Code(s): J45.901 - Unspecified asthma with (acute) exacerbation Status: Acute Assessment and Plan: currently receiving duo nebs q 6 hours scheduled received IV steroids in the ED, now on prednisone 40 mg daily for 5 days (3) Hypoxia: Code(s): R09.02 - Hypoxemia Status: Acute Assessment and Plan: suspect 2/2 to 1 and 2 patient mentions CHF has part of her history, no ECHO on file She has trace edema to BLE. Unclear if she is having abdominal swelling as she has central obesity. She denies abdominal pain. Will obtain 2D echo while admitted. (4) Insulin dependent type 2 diabetes mellitus: Code(s): E11.9 - Type 2 diabetes mellitus without complications; Z79.4 - nursing home (current) use of insulin Status: Acute Assessment and Plan: Takes Mounjaro, Lantus 70 units daily, and sliding scale at home last A1C 7.5% in June Lantus continues at 70 units nightly High dose SSI Blood sugars ranging 180-190's Diabetic diet (5) Hypertension: Qualifiers: Hypertension type: primary hypertension Qualified Code(s): I10 - Essential (primary) hypertension Code(s): I10 - Essential (primary) hypertension Status: Acute Assessment and Plan: Blood pressures ranging 150-170 systolic. On amlodipine at home. home med restarted blood pressures reviewed (6) Diabetic foot infection: Code(s): E11.628 - Type 2 diabetes mellitus with other skin complications; L08.9 - Local infection of the skin and subcutaneous tissue, unspecified Status: Acute Assessment and Plan: Chronic. Has been following with podiatry for this. Currently on doxycycline. Plan Feeding: DM, heart healthy Analgesia: Tylenol Thromboembolic prophylaxis: Lovenox Ulcer prophylaxis: na Glycemic control: lantus, SSI, achs Bowel regimen: miralax Lines: PIV Antibiotics: na Disposition: home when medically stable Subjective Date/time seen: 08/26/23 08:07 Interval history: This is a pleasant 57-year-old female with asthma, insulin-dependent type 2 diabetes mellitus, hypertension, and hyperlipidemia who presented to the emergency department for evaluation of shortness of breath. 08/25: Patient is seen today resting in bed on 2 L nasal cannula. She appears as though she does not feel well. She has a congested cough and diminished lung sounds with rhonchi. She states she is not really coughing anything up but she sounds congested. She denies nasal drainage, sore throat, fever, chills, and chest pain. She is asking if she is having a CHF exacerbation as she has been hospitalized for one before. BNP was 327. She does not have an ECHO on file. She does have some trace BLE, doppler was negative. Her chest x-ray was unremarkable however given how she sounds on exam feel inclined to go ahead and do a CT her chest. Review of Systems Review of Systems: 12 systems were reviewed and are negative except for as per HPI. Exam Narrative: General: appears unwell, appears stated age. HEENT: normocephalic, atraumatic. Mucous membranes moist. EOMI, PERRLA, bilateral sclera anicteric, no conjunctival injection. Neck supple without JVD, lymphadenopathy, or bruit. Respiratory: diminished auscultation bilaterally with rhonci. on oxygen at 2 l nc, dyspnea with exertion. Cardiovascular:
[2023-08-26] MEDS: amLODIPine BESYLATE 5 MG TABLET 10 MG PO (09:14)
[2023-08-26] MEDS: INSULIN GLARGINE (*BKC) 100 UNITS/ML 70 UNITS SUB-Q (09:15)
[2023-08-26] MEDS: ENOXAPARIN 40 MG/0.4 ML SYRINGE SUB-Q (09:15)
[2023-08-26] MEDS: DOXYCYCLINE HYCLATE 100 MG TABLET PO ×2 (09:15→21:15)
[2023-08-26] MEDS: predniSONE 20 MG TABLET 40 MG PO (09:15)
[2023-08-26] MEDS: CITALOPRAM HYDROBROMIDE 20 MG TABLET 40 MG PO (09:15)
[2023-08-26] MEDS: ASPIRIN 81 MG ENTERIC TABLET PO (09:15)
[2023-08-26 11:39] LABS: Glucose Point of Care 263 mg/dl (65-105)
[2023-08-26] MEDS: INSULIN ASPART (*BKC) 100 UNITS/ML SUB-Q ×3 (12:19→21:15)
[2023-08-26 14:28] LABS: NT Pro B Type Natriuretic Pept 327 pg/mL (19.9-100)
[2023-08-26 16:34] LABS: Glucose Point of Care 210 mg/dl (65-105)
[2023-08-26 16:58] LABS: Procalcitonin 0.1 ng/mL
[2023-08-26] MEDS: levoFLOXacin 750 MG/D5W 150 ML 750 MG/150 ML BAG 100 MG IVPB (17:10)
[2023-08-26] MEDS: ACETYLCYSTEINE 20% INHAL SOLN 800 MG/4 ML VIAL 200 MG INHALATION (19:46)
[2023-08-26 20:12] LABS: Glucose Point of Care 213 mg/dl (65-105)
[2023-08-26] MEDS: guaiFENesin 12 HR 600 MG TABCR 1200 MG PO (21:15)
[2023-08-26] MEDS: SIMVASTATIN 10 MG TABLET PO (21:15)
[2023-08-27] VITALS (14 sets, daily range): BP systolic 127–138; BP diastolic 47–69; PULSE 79–89; RESP 12–20; TEMP 36.1–36.5; O2SAT 92–96
--- NOTE | 2023-08-27 | ECHO_ITS ---
Patient Info Name: Heavenly Su Age: 57 years : 1965 Gender: Female Ht: 64 in Wt: 249 lbs BSA: 2.32 m2 HR: 81 bpm BP: 127 / 47 mmHg Heart Rhythm: Sinus Rhythm Technical Quality: Fair Exam Date: 08/27/2023 8:24 AM Exam Location: Echo Lab Patient Status: Inpatient Admit Date: 08/26/2023 Staff Ordering Physician: Zakia Velázquez APRN Sleeping Car Conductor: Arturo Monteiro RDCS Attending Provider: Zakia Velázquez APRN Referring Physician: Eber LIGHT; Exam Type: CA echo dop color flow w con Study Info Indications R06.02 - Shortness of breath Complete two-dimensional, color flow and Doppler transthoracic echocardiogram is performed with contrast to opacify the left ventricle and to improve the deliniation of the left ventricle endocardial borders. Contrast/Agitated Saline Contrast/Ag. Saline: Definity Amount: 5.00 ml Summary 1. Left ventricular chamber dimension is normal. 2. Left ventricular systolic function is normal, estimated at 65-70%. 3. There is mildly increased left ventricular wall thickness. 4. The left ventricular diastolic function is grade I diastolic dysfunction. 5. Right ventricular systolic function is normal. 6. There is mild mitral valve regurgitation. Left Ventricle Left ventricular chamber dimension is normal. Left ventricular systolic function is normal, estimated at 65-70%. There is mildly increased left ventricular wall thickness. The left ventricular diastolic function is grade I diastolic dysfunction. Right Ventricle Right ventricular chamber dimension is normal. Right ventricular systolic function is normal. Left Atria Left atrial chamber dimension is normal. Right Atria Right atrial chamber dimension is normal. Atrial Septum Intact interatrial septum visualized by color flow imaging. Aortic Valve The aortic valve is not well visualized. There is no aortic valve stenosis. There is no aortic valve regurgitation. Pulmonic Valve The pulmonic valve is not well visualized. There is no pulmonic regurgitation. Mitral Valve There is mild mitral valve regurgitation. Tricuspid Valve There is trace tricuspid valve regurgitation. Pericardium/Pleural There is no pericardial effusion. Inferior Vena Cava Dilated inferior vena cava with <50% collapse upon inspiration consistent with elevated right atrial pressure, 15 mmHg. Aorta The aortic root size at the sinus of Valsalva is normal. Left Ventricular Outflow Tract Name Value Normal LVOT 2D LVOT Diameter 2.10 cm LVOT Doppler LVOT Peak Gradient 7 mmHg LVOT Mean Gradient 4 mmHg LVOT VTI 26.45 cm LVOT VTI/AV VTI Ratio 0.71 LVOT Stroke Volume 91.35 ml LVOT CO 7.68 l/min LVOT CI 3.31 L/min/m2 Pulmonic Valve Name Value Normal PV Doppler
[2023-08-27] MEDS: IPRATROPIUM 0.5 MG/ALBUTEROL SULFATE 2.5 MG AMPUL.NEB 3 ML INHALATION ×4 (01:42→21:01)
[2023-08-27] MEDS: ACETYLCYSTEINE 20% INHAL SOLN 800 MG/4 ML VIAL 200 MG INHALATION ×4 (01:43→21:03)
[2023-08-27 06:08] LABS: Basophils Absolute Auto 0.1 K/mm3 (0.0-0.1); Basophils Percent Auto 0.5 % (0.2-1.2); Eosinophils Absolute Auto 0.1 K/mm3 (0-0.3); Eosinophils Percent Auto 0.7 % (0-4.4); Hematocrit 44.1 % (37.0-47.0); Hemoglobin 13.8 g/dL (12.0-15.0); Immature Granulocyte Absolute 0.12 K/mm3 (0.00-0.031); Immature Granulocyte Percent A 0.8 % (0-0.5); Lymphocytes Absolute Auto 3.09 K/mm3 (0.9-3.2); Lymphocytes Percent Auto 20.4 % (18.3-44.2); Mean Corpuscular HGB Conc 31.3 g/dl (32-36); Mean Corpuscular Hemoglobin 26.7 pg (26-34); Mean Corpuscular Volume 85.5 fl (80-100); Mean Platelet Volume 9.7 fl (7.4-10.4); Monocytes Absolute Auto 1.3 K/mm3 (0.1-0.6); Monocytes Percent Auto 8.5 % (2.6-8.5); Neutrophils Absolute Auto 10.5 K/mm3 (1.3-6.7); Neutrophils Percent Auto 69.1 % (45.5-73.1); Platelet Count Result 262 k/mm3 (150-375); Red Blood Count 5.16 M/mm3 (4.2-5.4); Red Cell Distribution Width 14.6 % (11.5-14.5); White Blood Count 15.1 K/mm3 (4.5-10.0)
[2023-08-27 06:17] LABS: Alanine Aminotransferase 28 U/L (6-35); Albumin Level 3.6 g/dL (3.5-5.1); Alkaline Phosphatase 96 U/L (38-126); Anion Gap 5 mmol/L (4-12); Aspartate Amino Transferase 29 U/L (14-36); Bilirubin,Total 0.5 mg/dL (0.2-1.3); Blood Urea Nitrogen 19 mg/dL (7-17); Calcium 8.7 mg/dL (8.4-10.2); Carbon Dioxide 29 mmol/L (22-30); Chloride 104 mmol/L (98-107); Estimated CRCL calculation 106 ml/min; Estimated Glomerular Filt Rate > 60; Glucose 113 mg/dL (65-110); Potassium 3.2 mmol/L (3.4-5.0); Sodium 138 mmol/L (137-145)
[2023-08-27 07:30] LABS: Glucose Point of Care 113 mg/dl (65-105)
[2023-08-27] MEDS: PERFLUTREN LIPID MICROSPHERES 1.5 ML VIAL DILUTED TO 10 ML TOTAL VOLUME IV PUSH (08:58)
--- NOTE | 2023-08-27 08:58 | IVDEFINITY ---
Prior to administration of IV Definity the patient was educated on the risks and benefits of the imaging enhancing agent including potential adverse side effects. The patient verbalized understanding. Allergies were verified. No exclusion criteria were identified and at least one of the following inclusion criteria were met: 1) physician request, 2) patient technically difficult to image (per the [employer]ocardi[employer] guidelines of two or more segments not discernable within the apical view), or 3) questionable left ventricular function. ?
[2023-08-27] MEDS: guaiFENesin 12 HR 600 MG TABCR 1200 MG PO ×2 (09:16→20:36)
[2023-08-27] MEDS: predniSONE 20 MG TABLET 40 MG PO (09:16)
[2023-08-27] MEDS: ASPIRIN 81 MG ENTERIC TABLET PO (09:16)
[2023-08-27] MEDS: amLODIPine BESYLATE 5 MG TABLET 10 MG PO (09:16)
[2023-08-27] MEDS: POTASSIUM CHLORIDE 20 MEQ ER TABLET 40 MEQ PO (09:17)
[2023-08-27] MEDS: polyethylene glycoL 3350 17 GM POWD.PACK PO (09:17)
[2023-08-27] MEDS: CITALOPRAM HYDROBROMIDE 20 MG TABLET 40 MG PO (09:17)
[2023-08-27] MEDS: DOXYCYCLINE HYCLATE 100 MG TABLET PO ×2 (09:17→20:36)
[2023-08-27] MEDS: ENOXAPARIN 40 MG/0.4 ML SYRINGE SUB-Q (09:19)
[2023-08-27] MEDS: INSULIN GLARGINE (*BKC) 100 UNITS/ML 70 UNITS SUB-Q (09:23)
--- NOTE | 2023-08-27 10:49 | PM.IMPN ---
Progress Note: A&P Assessment and Plan (1) Community acquired bacterial pneumonia: Code(s): J15.9 - Unspecified bacterial pneumonia Status: Acute Assessment and Plan: c/o shortness of breath, new oxygen requirement, congested, rhonchi present CT chest shows no PE, mild pneumonia in the upper lobs, bilateral mucous plugging and reactive lymphadenopathy Starting Levaquin today wean oxygen as tolerated sputum culture ordered Guaifenesin BID Duo/nebs q 6 hours Incentive spirometry and PEP ordered Mucomyst nebs for mucous plugging 08/26: Improving shortness of breath. Using incentive spirometer and [place] Dislikes mucomyst nebs but otherwise tolerating treatment Improving lung sounds Expect 1-2 more days of hospitalization (2) Asthma exacerbation: Code(s): J45.901 - Unspecified asthma with (acute) exacerbation Status: Acute Assessment and Plan: currently receiving duo nebs q 6 hours scheduled received IV steroids in the ED, now on prednisone 40 mg daily for 5 days (3) Hypoxia: Code(s): R09.02 - Hypoxemia Status: Acute Assessment and Plan: suspect 2/2 to 1 and 2 patient mentions CHF has part of her history, no ECHO on file She has trace edema to BLE. Unclear if she is having abdominal swelling as she has central obesity. She denies abdominal pain. Will obtain 2D echo while admitted. 08/26: Echocardiogram with findings of preserved left ventricular systolic function and grade 1 diastolic dysfunction mitral valve regurgitation (4) Insulin dependent type 2 diabetes mellitus: Code(s): E11.9 - Type 2 diabetes mellitus without complications; Z79.4 - keno terminal operator (current) use of insulin Status: Acute Assessment and Plan: Takes Mounjaro, Lantus 70 units daily, and sliding scale at home last A1C 7.5% in June Lantus continues at 70 units nightly High dose SSI Blood sugars ranging 180-190's Diabetic diet (5) Hypertension: Qualifiers: Hypertension type: primary hypertension Qualified Code(s): I10 - Essential (primary) hypertension Code(s): I10 - Essential (primary) hypertension Status: Acute Assessment and Plan: Blood pressures ranging 150-170 systolic. On amlodipine at home. home med restarted blood pressures reviewed (6) Diabetic foot infection: Code(s): E11.628 - Type 2 diabetes mellitus with other skin complications; L08.9 - Local infection of the skin and subcutaneous tissue, unspecified Status: Acute Assessment and Plan: Chronic. Has been following with podiatry for this. Currently on doxycycline. Plan Feeding: DM, heart healthy Analgesia: Tylenol Thromboembolic prophylaxis: Lovenox Ulcer prophylaxis: na Glycemic control: lantus, SSI, achs fingerstick glucose Bowel regimen: miralax Lines: PIV Antibiotics: Levaquin IV and chronic doxycycline oral for diabetic foot wound Disposition: home when medically stable Time Spent With Patient Time with patient: Greater than 35 minutes Subjective Date/time seen: 08/27/23 10:49 Interval history: This is a pleasant 57-year-old female with asthma, insulin-dependent type 2 diabetes mellitus, hypertension, and hyperlipidemia who presented to the emergency department for evaluation of shortness of breath. 08/25: Patient is seen today resting in bed on 2 L nasal cannula. She appears as though she does not feel well. She has a congested cough and diminished lung sounds with rhonchi. She states she is not really coughing anything up but she sounds congested. She denies nasal drainage, sore throat, fever, chills, and chest pain. She is asking if she is having a CHF exacerbation as she has been hospitalized for one before. BNP was 327. She does not have an ECHO on file. She does have some trace BLE, doppler was negative. Her chest x-ray was unremarkable however given how she sounds on exam feel inclined to go ahead an
[2023-08-27 11:39] LABS: Glucose Point of Care 191 mg/dl (65-105)
[2023-08-27 16:21] LABS: Glucose Point of Care 247 mg/dl (65-105)
[2023-08-27] MEDS: INSULIN ASPART (*BKC) 100 UNITS/ML SUB-Q ×2 (16:55→20:48)
[2023-08-27] MEDS: levoFLOXacin 750 MG/D5W 150 ML 750 MG/150 ML BAG 100 MG IVPB (16:55)
[2023-08-27] MEDS: SIMVASTATIN 10 MG TABLET PO (20:37)
[2023-08-28] VITALS (10 sets, daily range): BP systolic 125–146; BP diastolic 65–75; PULSE 72–87; RESP 14–18; TEMP 36–36.3; O2SAT 91–97; BMI 42.4
[2023-08-28 00:58] LABS: Glucose Point of Care 253 mg/dl (65-105)
[2023-08-28] MEDS: IPRATROPIUM 0.5 MG/ALBUTEROL SULFATE 2.5 MG AMPUL.NEB 3 ML INHALATION ×4 (03:17→20:27)
[2023-08-28] MEDS: ACETYLCYSTEINE 20% INHAL SOLN 800 MG/4 ML VIAL 200 MG INHALATION ×4 (03:18→20:27)
[2023-08-28 06:14] LABS: Basophils Absolute Auto 0.1 K/mm3 (0.0-0.1); Basophils Percent Auto 0.6 % (0.2-1.2); Eosinophils Absolute Auto 0.2 K/mm3 (0-0.3); Eosinophils Percent Auto 1.4 % (0-4.4); Hematocrit 45.8 % (37.0-47.0); Hemoglobin 14.1 g/dL (12.0-15.0); Immature Granulocyte Absolute 0.14 K/mm3 (0.00-0.031); Immature Granulocyte Percent A 1.1 % (0-0.5); Lymphocytes Absolute Auto 2.99 K/mm3 (0.9-3.2); Lymphocytes Percent Auto 22.8 % (18.3-44.2); Mean Corpuscular HGB Conc 30.8 g/dl (32-36); Mean Corpuscular Hemoglobin 26.3 pg (26-34); Mean Corpuscular Volume 85.4 fl (80-100); Mean Platelet Volume 9.6 fl (7.4-10.4); Monocytes Absolute Auto 1.3 K/mm3 (0.1-0.6); Monocytes Percent Auto 9.8 % (2.6-8.5); Neutrophils Absolute Auto 8.5 K/mm3 (1.3-6.7); Neutrophils Percent Auto 64.3 % (45.5-73.1); Platelet Count Result 294 k/mm3 (150-375); Red Blood Count 5.36 M/mm3 (4.2-5.4); Red Cell Distribution Width 14.5 % (11.5-14.5); White Blood Count 13.1 K/mm3 (4.5-10.0)
[2023-08-28 06:24] LABS: Alanine Aminotransferase 30 U/L (6-35); Albumin Level 3.8 g/dL (3.5-5.1); Alkaline Phosphatase 91 U/L (38-126); Anion Gap 6 mmol/L (4-12); Aspartate Amino Transferase 26 U/L (14-36); Bilirubin,Total 0.6 mg/dL (0.2-1.3); Blood Urea Nitrogen 19 mg/dL (7-17); Calcium 8.9 mg/dL (8.4-10.2); Carbon Dioxide 29 mmol/L (22-30); Chloride 102 mmol/L (98-107); Estimated CRCL calculation 105 ml/min; Estimated Glomerular Filt Rate > 60; Glucose 114 mg/dL (65-110); Magnesium 2.1 mg/dL (1.6-2.3); Potassium 3.6 mmol/L (3.4-5.0); Sodium 137 mmol/L (137-145)
[2023-08-28 07:39] LABS: Glucose Point of Care 122 mg/dl (65-105)
[2023-08-28] MEDS: DOXYCYCLINE HYCLATE 100 MG TABLET PO ×2 (08:51→20:54)
[2023-08-28] MEDS: predniSONE 20 MG TABLET 40 MG PO (08:51)
[2023-08-28] MEDS: CITALOPRAM HYDROBROMIDE 20 MG TABLET 40 MG PO (08:51)
[2023-08-28] MEDS: guaiFENesin 12 HR 600 MG TABCR 1200 MG PO ×2 (08:51→20:54)
[2023-08-28] MEDS: ASPIRIN 81 MG ENTERIC TABLET PO (08:51)
[2023-08-28] MEDS: ENOXAPARIN 40 MG/0.4 ML SYRINGE SUB-Q (08:51)
[2023-08-28] MEDS: INSULIN GLARGINE (*BKC) 100 UNITS/ML 70 UNITS SUB-Q (08:52)
[2023-08-28] MEDS: amLODIPine BESYLATE 5 MG TABLET 10 MG PO (08:52)
--- NOTE | 2023-08-28 09:09 | PM.IMPN ---
Progress Note: A&P Assessment and Plan (1) Community acquired bacterial pneumonia: Code(s): J15.9 - Unspecified bacterial pneumonia Status: Acute (2) Asthma: Code(s): J45.909 - Unspecified asthma, uncomplicated Status: Acute (3) Hypoxia: Code(s): R09.02 - Hypoxemia Status: Acute (4) Hypertension: Qualifiers: Hypertension type: primary hypertension Qualified Code(s): I10 - Essential (primary) hypertension Code(s): I10 - Essential (primary) hypertension Status: Acute (5) Diabetic foot infection: Code(s): E11.628 - Type 2 diabetes mellitus with other skin complications; L08.9 - Local infection of the skin and subcutaneous tissue, unspecified Status: Acute (6) Cellulitis of left toe: Code(s): L03.032 - Cellulitis of left toe Status: Acute (7) Insulin dependent type 2 diabetes mellitus: Code(s): E11.9 - Type 2 diabetes mellitus without complications; Z79.4 - watermelon harvesting supervisor (current) use of insulin Status: Acute Plan Pneumonia due to Gram-positive/Gram-negative organism IV fluid resuscitation. Monitor lactic acid levels. WBC is 13.1 Repeat CBC CMP. Monitor oxygen saturation. Watch for any chest pain,tachycardia or tachypnea Two sets of blood culture,Sputum cultures Urine Legionella antigen DuoNeb q.4 p.r.n. Solu-Medrol IV Antibiotic doxycycline p.o. Asthma acute on chronic respiratory failure with hypoxemia Bronchodilators.: DuoNebs Steroids: Solu-Medrol Incentive Spirometry chest x-ray/CTA mid pneumonia upper lobe 2D echo EF 65% all ventricles within normal limits Smoking cessation advised Keeping BMI less than 25. Routine exercises. Pneumoniae and flu vaccines as advised Pulmonary rehab if indicated. For disease management to follow GOLD guidelines. Repeat hospitilaztion risk evaluation per CAT. Evaluation for home O2 if saturations less than 88% on room air Follow-up with primary care and balance truing inspector routine DM Optimize medications sliding scale insulin Lantus 70 units. Taking G LP 1 Routine glucose monitoring. Watch for Hypoglycemia. Watch for peripheral neuropathy Encouraged lower extremity and foot care BMI goal < 25 LDL goal <80 1800 ADA diet Lifestyle modification HB A1c levels 7.5 Antiplatelet therapy with aspirin Subjective Date/time seen: 08/28/23 09:09 Interval history: Still complains of cough no nausea no vomiting fever chills Review of Systems Review of Systems: All systems reviewed & are unremarkable except as noted in HPI and below Exam Narrative: GENERAL: Well appearing, no acute distress. HEAD: Normocephalic, atraumatic. NECK: Supple. No adenopathy, no masses. RESPIRATORY: respirations nonlabored. , no rales, wheezing. CARDIOVASCULAR: Regular rate and rhythm without murmurs, . Peripheral pulses 2+ and equal bilaterally. ABDOMINAL: Soft, nontender, nondistended, no hepatosplenomegaly. Normoactive BS. MUSCULOSKELETAL: no Epigastric and no hypochondrial tenderness SKIN: Warm, dry, S right foot ulcer NEURO: A&O X3. Moves all extremities Objective Data Vital Signs Vital Signs: Vital Signs - 24 hr 08/27/23 13:30 08/27/23 13:41 08/27/23 13:53 Temperature 36.5 C Pulse Rate 86 85 89 Respiratory Rate 20 20 20 Blood Pressure 138/69 Pulse Oximetry 96 Oxygen Delivery Oxygen Flow Rate 08/27/23 21:03 08/27/23 21:04 08/27/23 21:22 Temperature 36.1 C L Pulse Rate 79 80 Respiratory Rate 18 13 Blood Pressure 136/61 Pulse Oximetry 96 95 Oxygen Delivery Nasal Cannula Oxygen Flow Rate 2 08/27/23 20:00 08/28/23 03:19 08/27/23 21:20 Temperature Pulse Rate 72 84 Respiratory Rate 18 18 Blood Pressure Pulse Oximetry 95 Oxygen Delivery Nasal Cannula Oxygen Flow Rate 2 08/28/23 05:27 08/28/23 03:35 08/28/23 08:14 Temperature 36.2 C L Pulse Rate 80 75 Respiratory Rate 14 18 Blood Pressure 144/65 H Pu
[2023-08-28 11:26] LABS: Glucose Point of Care 214 mg/dl (65-105)
[2023-08-28] MEDS: INSULIN ASPART (*BKC) 100 UNITS/ML SUB-Q ×3 (12:19→20:56)
[2023-08-28 16:19] LABS: Glucose Point of Care 220 mg/dl (65-105)
[2023-08-28] MEDS: levoFLOXacin 750 MG/D5W 150 ML 750 MG/150 ML BAG 100 MG IVPB (16:46)
--- NOTE | 2023-08-28 19:07 | PC.NURSE ---
On 08/28/23, the SCIENTIFIC LABORATORY SUPERVISOR,Chelly Jones, provided care and completed [employer] documentation on this patient. I have reviewed the SCIENTIFIC LABORATORY SUPERVISOR's documentation and agree with the findings.
--- NOTE | 2023-08-28 19:08 | PC.NURSE ---
On 08/28/23, the CHAIRMAN PRESIDENT AND CHIEF EXECUTIVE OFFICER, Chelly Jones, provided care and completed [employer] documentation on this patient. I have reviewed the CHAIRMAN PRESIDENT AND CHIEF EXECUTIVE OFFICER's documentation and agree with the findings.
[2023-08-28] MEDS: SIMVASTATIN 10 MG TABLET PO (20:54)
[2023-08-28 21:00] LABS: Glucose Point of Care 240 mg/dl (65-105)
[2023-08-29] MEDS: IPRATROPIUM 0.5 MG/ALBUTEROL SULFATE 2.5 MG AMPUL.NEB 3 ML INHALATION ×2 (02:04→08:33)
[2023-08-29 02:09] VITALS: PULSE 80; RESP 16
[2023-08-29] MEDS: ACETYLCYSTEINE 20% INHAL SOLN 800 MG/4 ML VIAL 200 MG INHALATION ×2 (02:09→08:34)
[2023-08-29 02:22] VITALS: PULSE 83; RESP 16
[2023-08-29 04:52] VITALS: BP 156/85; PULSE 83; RESP 18; TEMP 36.1; O2SAT 92
[2023-08-29 05:56] LABS: Basophils Absolute Auto 0.1 K/mm3 (0.0-0.1); Basophils Percent Auto 0.5 % (0.2-1.2); Eosinophils Absolute Auto 0.3 K/mm3 (0-0.3); Eosinophils Percent Auto 2.6 % (0-4.4); Hemoglobin 14.6 g/dL (12.0-15.0); Immature Granulocyte Absolute 0.16 K/mm3 (0.00-0.031); Immature Granulocyte Percent A 1.3 % (0-0.5); Lymphocytes Absolute Auto 3.04 K/mm3 (0.9-3.2); Lymphocytes Percent Auto 24.6 % (18.3-44.2); Mean Corpuscular HGB Conc 31.1 g/dl (32-36); Mean Corpuscular Hemoglobin 26.4 pg (26-34); Mean Corpuscular Volume 84.8 fl (80-100); Mean Platelet Volume 9.2 fl (7.4-10.4); Monocytes Absolute Auto 1.2 K/mm3 (0.1-0.6); Neutrophils Absolute Auto 7.5 K/mm3 (1.3-6.7); Platelet Count Result 279 k/mm3 (150-375); Red Blood Count 5.54 M/mm3 (4.2-5.4); Red Cell Distribution Width 14.4 % (11.5-14.5); White Blood Count 12.4 K/mm3 (4.5-10.0)
[2023-08-29 06:12] LABS: Alanine Aminotransferase 28 U/L (6-35); Albumin Level 3.9 g/dL (3.5-5.1); Alkaline Phosphatase 91 U/L (38-126); Anion Gap 5 mmol/L (4-12); Aspartate Amino Transferase 23 U/L (14-36); Bilirubin,Total 0.7 mg/dL (0.2-1.3); Blood Urea Nitrogen 18 mg/dL (7-17); Calcium 9.1 mg/dL (8.4-10.2); Carbon Dioxide 28 mmol/L (22-30); Chloride 103 mmol/L (98-107); Estimated CRCL calculation 105 ml/min; Estimated Glomerular Filt Rate > 60; Glucose 115 mg/dL (65-110); Potassium 3.4 mmol/L (3.4-5.0); Sodium 136 mmol/L (137-145)
[2023-08-29 07:53] LABS: Glucose Point of Care 126 mg/dl (65-105)
[2023-08-29 08:33] VITALS: PULSE 76; RESP 16
[2023-08-29 08:35] VITALS: O2SAT 95
[2023-08-29 08:43] VITALS: PULSE 78; RESP 16
[2023-08-29] MEDS: DOXYCYCLINE HYCLATE 100 MG TABLET PO (09:13)
[2023-08-29] MEDS: amLODIPine BESYLATE 5 MG TABLET 10 MG PO (09:13)
[2023-08-29] MEDS: guaiFENesin 12 HR 600 MG TABCR 1200 MG PO (09:13)
[2023-08-29] MEDS: polyethylene glycoL 3350 17 GM POWD.PACK PO (09:13)
[2023-08-29] MEDS: predniSONE 20 MG TABLET 40 MG PO (09:14)
[2023-08-29] MEDS: CITALOPRAM HYDROBROMIDE 20 MG TABLET 40 MG PO (09:14)
[2023-08-29] MEDS: ASPIRIN 81 MG ENTERIC TABLET PO (09:14)
[2023-08-29] MEDS: ENOXAPARIN 40 MG/0.4 ML SYRINGE SUB-Q (09:15)
[2023-08-29] MEDS: INSULIN GLARGINE (*BKC) 100 UNITS/ML 70 UNITS SUB-Q (09:17)
--- NOTE | 2023-08-29 10:15 | PM.DS ---
DS: Admitting Diagnosis Discharge Date 08/29/2023 Admitting Diagnosis hypoxia, asthma exacerbation, insulin-dependent type 2 diabetes mellitus, hypertension, diabetic foot infection DS: Discharge Diagnosis Discharge Diagnosis (1) Community acquired bacterial pneumonia: Code(s): J15.9 - Unspecified bacterial pneumonia Status: Acute (2) Asthma: Code(s): J45.909 - Unspecified asthma, uncomplicated Status: Acute (3) Hypoxia: Code(s): R09.02 - Hypoxemia Status: Acute (4) Hypertension: Qualifiers: Hypertension type: primary hypertension Qualified Code(s): I10 - Essential (primary) hypertension Code(s): I10 - Essential (primary) hypertension Status: Chronic (5) Diabetic foot infection: Code(s): E11.628 - Type 2 diabetes mellitus with other skin complications; L08.9 - Local infection of the skin and subcutaneous tissue, unspecified Status: Chronic (6) Cellulitis of left toe: Code(s): L03.032 - Cellulitis of left toe Status: Chronic (7) Insulin dependent type 2 diabetes mellitus: Code(s): E11.9 - Type 2 diabetes mellitus without complications; Z79.4 - alf (current) use of insulin Status: Chronic DS: Summary Hospital Course Reason for hospitalization: hypoxia Hospital Course: This is a 57-year-old female patient who was admitted to hospital for dyspnea hypoxia presumed asthma exacerbation. While hospitalized her white blood cell count jumped and CT scan was obtained showing bilateral pneumonia. Patient was treated IV Levaquin. She was continued on doxycycline that she has been taking chronically for a couple of months for a diabetic ulcer on toe of the left foot. Patient echocardiogram completed with good EF grade 1 diastolic dysfunction. Hypoxia continued to improve daily until she was able to be placed on room air on 08/27. She continued on room air for over 24 hours. She is able to ambulate at baseline without severe dyspnea. Patient is afebrile and white blood cell count has been trending downward. Today would be day 5 of steroids and there is no remaining wheezing. This will not be continued. However, she will continue oral Levaquin. patient was previously on Advair and would probably benefit from such after this hospitalization. Prescription sent to pharmacy. Status at Discharge Cognitive/behavioral status at discharge: Awake alert oriented and very pleasant Functional status at discharge: independent ambulation Overall status at discharge: patient is progressing back to baseline Time Spent with Patient Time attestation: Total time spent providing and/or coordinating discharge services: 45 minutes Time spent: Greater than 30 minutes Exam Narrative: GENERAL: Well appearing, no acute distress. HEAD: Normocephalic, atraumatic. NECK: Supple. No adenopathy, no masses. RESPIRATORY: respirations nonlabored. , no rales, no wheezing. CARDIOVASCULAR: Regular rate and rhythm without murmurs, Peripheral pulses 2+ and equal bilaterally. ABDOMINAL: Soft, nontender, nondistended, no hepatosplenomegaly. Normoactive BS. MUSCULOSKELETAL: no Epigastric and no hypochondrial tenderness SKIN: Warm, dry, second toe left foot ulcer NEURO: A&O X3. Moves all extremities DS: Data Data Completed and Pending Completed studies during hospitalization: Chest x-ray, CTA of the chest, venous duplex Dopplers and echocardiogram Labs on day of discharge: Labs from last 24 hours 08/29/23 08/29/23 08/28/23 07:49 05:26 20:51 WBC 12.4 H RBC 5.54 H Hgb 14.6 Hct 47.0 MCV 84.8 MCH 26.4 MCHC 31.1 L RDW 14.4 Plt Count 279 MPV 9.2 Immature Gran % (Auto) 1.3 H Neut % (Auto) 61.0 Lymph % (Auto) 24.6 [place] % (Auto) 10.0 H Eos % (Auto) 2.6 Baso % (Auto) 0.5 Lymph # (Auto) 3.04 [place] # (Auto) 1.2 H Eos # (Auto) 0.3 Baso # (Auto) 0.1 Abs Immat Gran (auto) 0.16 H
[2023-08-29 11:29] LABS: Glucose Point of Care 232 mg/dl (65-105)
[2023-08-29] MEDS: INSULIN ASPART (*BKC) 100 UNITS/ML SUB-Q (12:06)
[2023-08-29] MEDS: levoFLOXacin 750 MG TABLET PO (13:26)
[2023-08-29] MEDS: ALBUTEROL SULFATE (*SP) AEROSOL 1 PUFF 2 PUFF INHALATION (13:30)
--- NOTE | 2023-09-08 11:28 | PCCDE ---
09/08/23 Reached pt by phone briefly. Denies questions, has my number via caller ID. Was in the middle of something , not up for long talk, baby/child in background. FJ
== END 2023-08-29 14:10 | disposition home or self-care (01) | DRG 202 ==
LOC: ANHED 12:57 → ANH3MEDSUR 13:58
PROVIDERS: Nurse Practitioner Acute Care; Physician Assistant; Admitting Provider Internal Medicine; Emergency Provider Emergency Medicine; PCP Family Medicine; Visit Provider Nurse Practitioner
DX: J45.901 Unspecified asthma with (acute) exacerbation (principal); J18.9 Pneumonia, unspecified organism; Z68.41 Body mass index [BMI] 40.0-44.9, adult; T17.890A Other foreign object in other parts of respiratory tract causing asphyxiation, initial encounter; R09.02 Hypoxemia; I10 Essential (primary) hypertension; E11.628 Type 2 diabetes mellitus with other skin complications; L03.032 Cellulitis of left toe; Z20.822 Contact with and (suspected) exposure to COVID-19; K21.9 Gastro-esophageal reflux disease without esophagitis; E11.621 Type 2 diabetes mellitus with foot ulcer; L97.529 Non-pressure chronic ulcer of other part of left foot with unspecified severity; E78.5 Hyperlipidemia, unspecified; M19.90 Unspecified osteoarthritis, unspecified site; E66.9 Obesity, unspecified; Z96.653 Presence of artificial knee joint, bilateral; Z79.4 Long term (current) use of insulin; Z79.82 Long term (current) use of aspirin; Z89.421 Acquired absence of other right toe(s); Z98.42 Cataract extraction status, left eye; Z98.41 Cataract extraction status, right eye
CPT/HCPCS: 36415; 71046; 71275; 80048; 80053; 82948; 83735; 83880; 84145; 85025; 85027; 85055; 87637; 93005; 93970; 94640; 94667; 96365; 96372; 96375; 99285; A9270; C8929; G0378; J1650; J1815; J1956; J2919; J3475; J7512; Q9957; Q9967

== ENCOUNTER 2023-12-02 09:21 | Outpatient (CLI) | payer MEDICARE, OTHER, SELFPAY ==
--- NOTE | ~2023-12-02 | MM_ITS ---
EXAMINATION: MM screening [facility] BI w roberto carlos HISTORY: Screening mammogram TECHNIQUE: Craniocaudal and mediolateral oblique 3-D tomosynthesis images were obtained and synthetic 2-D images were generated. CAD analysis was submitted and interpreted. COMPARISON: 11/07/2022, 04/19/2022 BREAST PARENCHYMAL COMPOSITION:Not Dense. The breasts are almost entirely fatty FINDINGS: Stable benign calcified mass at the outer right breast. No suspicious mass, calcification, or architectural distortion are identified in either breast to suggest malignancy. There has been no suspicious interval change. IMPRESSION: No mammographic evidence of malignancy. Recommend routine screening mammography in one year. BI-RADS Category 2: Benign finding(s). Reviewed, dictated and finalized at location .
== END 2023-12-02 09:22 | disposition home or self-care (01) ==
LOC: ANHIMG 09:22
PROVIDERS: PCP Family Medicine; Visit Provider Family Medicine
DX: Z12.31 Encounter for screening mammogram for malignant neoplasm of breast (principal)
CPT/HCPCS: 77063; 77067

== ENCOUNTER 2024-12-15 14:03 | Outpatient (CLI) | payer MEDICARE, OTHER, SELFPAY ==
--- OUTSIDE RECORDS SUMMARY | 2003-09-16 10:00 | XMS_ITS | Continuity of Care Document ---
Author Organization [facility] Address [address] [place] [address] Phone Care Team Providers Care Welt Sewer Name Role Phone Evens Miller DO Unavailable Unavailable Advance Directives Directive Yes / No Effective Date File Name No Information Encounters Encounter Description Practice Location Reason(s) For Visit Diagnoses Date Provider Providers Copied on Encounter [facility], [address], [place], [place], [id number], tel:[phone] [facility] [place] No Information Angela Patten. [address] [place], [address], . tel: [phone] Family History Family Member Type Diagnosis Age At Onset No Information Payers Payer name Insurance type Covered green party ID Authoriza tion(s) No Information Social History Type Description Quantity Date Captured Comments Sex Female Smoking Status No Information Chief Complaint And Reason For Visit No Information Reason For Referral Reason For Referral No Information History Of Present Illness Encounter Date Complaint History Of Prese nt Illness No Information Functional Status Date Functional Assessmen t No Information Instructions Date Instruction Additional Infor mation No Information Assessments Type Assessment Date No Information Patient Care Teams Name Effective Dates (start - stop) Status Members No Information
--- NOTE | ~2024-12-15 | MM_ITS ---
EXAMINATION: MM screening jose d BI w roberto carlos HISTORY: Screening TECHNIQUE: Craniocaudal and mediolateral oblique 3-D tomosynthesis images were obtained and synthetic 2-D images were generated. CAD analysis was submitted and interpreted. COMPARISON: 12/02/2023 BREAST PARENCHYMAL COMPOSITION: Not Dense: The breasts are almost entirely fatty. FINDINGS: There is no evidence of suspicious mass, calcification, or architectural distortion to suggest malignancy. There has been no suspicious interval change. IMPRESSION: 1. No mammographic evidence of malignancy. Recommend routine screening mammography in one year. BI-RADS Category 2: Benign finding(s) Reviewed, dictated and finalized at location Q. IMPRESSION: 1. No mammographic evidence of malignancy. Recommend routine screening mammogra phy in one year. BI-RADS Category 2: Benign finding(s)
--- OUTSIDE RECORDS SUMMARY | 2024-12-15 14:08 | XMS_ITS | Clinical Summary ---
Author Organization [facility] Address [address] [place] [id number] Care Team Providers Care Internal Audit Senior Manager Name Role Phone Cassandra Scanlon MD Unavailable Arturo Walker DO Primary Care Provider [phone] Allergies Active Allergy Reactions Criticality Noted Date Comments Cefuroxime Other (See comments),Rash Medium Reaction: Joint stiffness, Cefuroxime Axetil Other (See comments) Low 11/11/19 23 Cause extreme joint pain Hydrocodone-Acetaminop hen Nausea only,Nausea & Vomiting Low 10/01/2018 Medications citalopram (CeleXA) 20 mg tablet take 1 tablet by oral route every day 0 0 03/12/20 16 Active Additional Information Patient taking differently: 40 mg oral Daily, Reported on 12/08/2024 amLODIPine (NORVASC) 10 mg tablet take 1 tablet by oral route every day 0 0 03/12/20 16 Active calcium carbonate-vit merino D2 600-125 mg-unit tablet Take by mouth daily. Active aspirin 81 mg tablet Take 1 tablet (81 mg total) by mouth daily Active ibuprofen (ADVIL,MOTRIN ) 800 mg tablet Take 1 tablet (800 mg total) by mouth every 8 (eight) hours as needed 2 03/12/20 17 Active PROAIR HFA 90 mcg/actuation inhaler INL 2 PUFFS PO Q 4 TO 6 H PRN 3 05/02/19 18 Active LYUMJEV 100 unit/mL pen for injectionIndi cations:Type 2 diabetes mellitus with hyperglycemia , with long-term current use of insulin ([facility]) INJECT INJECT 40 UNITS UNITS UNDER THE SKIN TWO TIMES A DAY BEFORE BREAKFAST AND DINNER. TOTAL DAILY DOSE IS 80 75 mL 3 06/10/19 24 Active Additional Information Patient taking differently: INJECT INJECT 20 UNITS UNITS UNDER THE SKIN TWO TIMES A DAY BEFORE BREAKFAST AND DINNER. TOTAL DAILY DOSE IS 80, Reported on 12/08/2024 guaiFENesin ER (MUCINEX) 600 mg 12 hr tablet Take 2 tablets (1,200 mg total) by mouth every 12 (twelve) hours 08/30/19 24 Active pen needle, diabetic (BD Ultra-Fine Chiquita Pen Needle) 32 gauge x 5/32 needleIndicat ions:Type 2 diabetes mellitus with hyperglycemia , with long-term current use of insulin ([facility]) USE TO INJECT INSULIN FOUR TIMES A DAY 400 each 2 10/23/19 24 Active simvastatin (ZOCOR) 10 mg tablet TAKE 1 TABLET BY MOUTH NIGHTLY 90 tablet 2 06/16/19 25 Active Farxiga 10 mg tabletIndicat ions:Type 2 diabetes mellitus with hyperglycemia , with long-term current use of insulin ([facility]) TAKE 1 TABLET BY MOUTH DAILY 90 tablet 3 06/18/19 25 Active amoxicillin 500 mg capsule TK FOUR CS PO 1 HOUR B DAPP 04/14/19 25 Active brimonidine-t imoloL (COMBIGAN) 0.2-0.5 % ophthalmic solution 1 drop 2 (two) times a day 06/28/19 25 Active blood-glucose sensor (FreeStyle Flex 2 Plus Sensor) device Active insulin glargine (TOUJEO) 300 unit/mL (1.5 mL) pen for injectionIndi cations:type 2 diabetes mellitus Inject 70 Units under the skin every morning 15 mL 3 07/23/19 25 026 Active ibuprofen-huseyin taminophen 97.5-325 mg tablet 800 mg 06/23/19 24 Active Qvar RediHaler 40 mcg/actuation inhaler INHALE 2 PUFFS BY MOUTH EVERY 12 HOURS 09/24/19 25 Active fluticasone propion-salme teroL (ADVAIR DISKUS) 250-50 mcg/dose diskus inhaler Q12H 08/29/19 24 Active acetaminophen -aspirin-caff eine (EXCEDRIN MIGRAINE) 250-250-65 mg per tablet daily 04/03/19 23 Active guaiFENesin-p seudoephedrin e (MUCINEX D) 600-60 mg per 12 hr tablet every 12 (twelve) hours 08/29/19 24 Active insulin glargine (TOUJEO MAX) 300 unit/mL (3 mL) pen for injection daily 08/25/19 24 Active insulin lispro-aabc (LYUMJEV) 100 unit/mL vial for injection .COMPLEX 06/06/19 24 Active levoFLOXacin 1.5 % drops daily 08/29/19 24 Active metFORMIN (GLUCOPHAGE) 1,000 mg tabletIndicat ions:Type 2 diabetes mellitus with hyperglycemia , with long-term current use of insulin ([facility]) Take 1 tablet (1,000 mg total) by mouth 2 (two) times a day with meals 180 tablet 3 12/10/19 026 Active tirzepatide (Mounjaro) 12.5 mg/0.5 mL pen injector injectionIndi cations:type 2 diabetes mellitus Inject 0.5 mL (12.5 mg total) under the skin every 7 days 6 mL 3 12/10/19 026 Active mupirocin (BACTROBAN) 2 % ointment APPLY TO WOUNDS ON FEET TWICE DAILY 04/03/19 025 Discontinued metFORMIN (GLUCOPHAGE) 1,000 mg tabletIndicat ions:Type 2 diabetes mellitus with hyperglycemia , with long-term current use of insulin ([facility]) Take 1 tablet (1,000 mg total) by mouth 2 (two) times a day with meals 180 tablet 3 07/23/19 025 Discontinued(Re order) tirzepatide (Mounjaro) 12.5 mg/0.5 mL pen injector injectionIndi cations:type 2 diabetes mellitus Inject 0.5 mL (12.5 mg total) under the skin every 7 days 6 mL 3 11/10/19 025 Discontinued(Re order) amlodipine-ce lecoxib 2.5-200 mg tablet daily 06/04/19 24 025 Discontinued(No longer taking - Do not display on AVS) citalopram 30 mg capsule daily 03/04/20 22 025 Discontinued(No longer taking - Do not display on AVS) tirzepatide (MOUNJARO) 5 mg/0.5 mL pen injector injection once a week 06/02/19 24 025 Discontinued(No longer taking - Do not display on AVS) Active Problems Problem Noted Date Diagnosed Date Class 2 severe obesity due t o excess calories with serious comorbidity and body mass index (BMI) of 38.0 to 38.9 in adult 07/22/2024 Assessment & Plan (07/22/2024 11:29 AM CDT): Discussed healthy diet and importance of regular physical activity (20- 30min/day, 150min/wk). Encouraged her to get on her stationary bike. Has lost 34# since [facility]. Taking Mounjaro 10mg weekly. Hypertension associated with type 2 diabetes kalyani litus 09/03/2023 Assessment & Plan (12/08/2024 10:12 AM CDT): Chronic problem. Currently taking amlodipine 10mg daily. Assessment & Plan (07/22/2024 11:14 AM CDT): Chronic problem. Currently taking amlodipine 10mg daily. Will update labs. Verified that she uses [facility]. Aware to check results/results letter in [facility]. Will contact by phone if needed. Assessment & Plan (2023 9:49 AM CDT): Chronic problem. Currently taking amlodipine 10mg daily. Soft tissue infection of foot 04/29/2023 Assessment & Plan (05/01/2023 12:34 PM LOOM FIXER HELPER): Patient with history of DM and peripheral neuropathy presents with left great toe edema and erythema which she noticed 5 days prior to presentation. She was seen by endocrine during routine visit. L foot XR (04/25/2023) showed mildly displaced comminuted intra-articular left great toes distal phalanx fracture and soft tissue swelling. 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 Patient was instructed to come to ED for IV antibiotics. No known trauma. No history of gout. Pt unaware of comminuted fractures. - Ddx cellulitis most likely. Repeat left foot XR fairly unchanged from XR 04/24. Showed significant surrounding soft tissue swelling, unchanged comminuted fractures but no definite erosion. ESR 16, CRP 9.2. Xray and ESR/CRP make osteomyelitis less likely. 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 - Evaluated by Dr. Cotton who recommended consideration of bone biopsy. MRI as above. Discussed biopsy with [facility] IR who stated there is not an are to biopsy. Dr Cotton notified and ok with patient to transition to PO antibiotics for discharge. Patient planning to follow up with her outpatient 3rd grade reading teacher. - Less red and less swollen today. Continue vancomycin, transition to PO for discharge - No history of gout. If no improvement with abx, can consider work up Foot pain 04/24/2023 Assessment & Plan (04/24/2023 12:58 PM LOOM FIXER HELPER): With edema and redness, no visible ulcers. Will check CBC. Foot X ray Pt to call her 3rd grade reading teacher, today to get urgent appointment. Morbid (severe) obesity due to excess calories 0 08/30/2021 Assessment & Plan (04/30/2023 7:50 PM LOOM FIXER HELPER): - internet developer consulted - Start guerda when able Assessment & Plan (04/11/2022 11:22 AM LOOM FIXER HELPER): Chronic problem, not at goal. Try Ozempic. Assessment & Plan (08/30/2021 11:36 AM CDT): Chronic problem, not at goal. Encouraged her walking routine. Recommended she meet with a counselor again as well as she feels it's emotional / stress eating. Hyperlipidemia associated with type 2 diabetes chino adams 10/21/2017 Assessment & Plan (12/08/2024 10:12 AM CDT): Chronic problem. Currently taking Simvastatin 10mg. Last lipid panel: 07/22/24 LDL=67, TG=69. Assessment & Plan (07/22/2024 11:14 AM CDT): Chronic problem. Currently taking Simvastatin 10mg. Last lipid panel: 09/04/23 LDL=63, TG=88. Will update labs. Verified that she uses [facility]. Aware to check results/results letter in [facility]. Will contact by phone if needed. Assessment & Plan (2023 9:44 AM CDT): Chronic problem. Currently taking Simvastatin 10mg. Last lipid panel: 09/04/23 LDL=63, TG=88. Assessment & Plan (09/04/2023 10:29 AM CDT): Chronic problem. Currently taking Simvastatin 10mg. Last lipid panel: 08/01/22 LDL=87, XA=093. Will update labs today. Does not ICU [facility]. Verified phone #/address to contact re: results. Assessment & Plan (12/19/2022 1:20 PM CDT): Chronic problem. Currently taking Simvastatin 10mg. Last lipid panel: 05/31/21 LDL=90, GL=092. Assessment & Plan (08/01/2022 1:35 PM CDT): Chronic problem. Currently taking Simvastatin 10mg. Last lipid panel: 05/31/21 LDL=90, HU=256. Will update labs today. Verified phone #/address to contact re: results. Assessment & Plan (04/11/2022 9:10 AM LOOM FIXER HELPER): Chronic problem. On statin therapy, no changes. Assessment & Plan (08/30/2021 11:03 AM CDT): Chronic problem. On statin therapy, no changes. Assessment & Plan (05/31/2021 10:15 AM LOOM FIXER HELPER): Chronic problem. On statin therapy, no changes. Assessment & Plan (04/27/2020 5:12 PM LOOM FIXER HELPER): Goal of treatment , LDL cholesterol less than 100 ( less than 70 in patients with history of heart attacks and / or strokes ) NonHDL cholesterol ( total cholesterol minus HDL cholesterol ) goal less than 130 ( less than 100 in patients with history of heart attacks and / or strokes ) Low cholesterol, low fat diet was discussed and advised. Daily exercise On statin therapy Simvastatin, 10 mg daily Assessment & Plan (01/13/2020 2:31 PM CDT): At goal on current medications. Continue statin therapy. Assessment & Plan (10/07/2019 12:38 PM CDT): Goal of treatment , LDL cholesterol less than 100 ( less than 70 in patients with history of heart attacks and / or strokes ) NonHDL cholesterol ( total cholesterol minus HDL cholesterol ) goal less than 130 ( less than 100 in patients with history of heart attacks and / or strokes ) Low cholesterol, low fat diet was discussed and advised. Daily exercise On statin therapy with Simvastatin Assessment & Plan (07/08/2019 9:58 AM CDT): Continue statin therapy Assessment & Plan (04/01/2019 1:24 PM LOOM FIXER HELPER): At goal on current medications. Continue statin therapy. Assessment & Plan (10/09/2018 1:37 PM CDT): Check lipid panel Assessment & Plan (04/23/2018 10:43 AM LOOM FIXER HELPER): Goal of treatment , LDL cholesterol less than 100 ( less than 70 in patients with history of heart attacks and / or strokes ) NonHDL cholesterol ( total cholesterol minus HDL cholesterol ) goal less than 130 ( less than 100 in patients with history of heart attacks and / or strokes ) Low cholesterol, low fat diet was discussed and advised. Daily exercise On statin therapy Assessment & Plan (01/01/2018 10:06 AM CDT): At goal on current medications. Assessment & Plan (10/21/2017 10:32 AM CDT): Goal of treatment , LDL cholesterol less than 100 ( less than 70 in patients with history of heart attacks and / or strokes ) NonHDL cholesterol ( total cholesterol minus HDL cholesterol ) goal less than 130 ( less than 100 in patients with history of heart attacks and / or strokes ) Low cholesterol, low fat diet was discussed and advised. Daily exercise On statin therapy Diabetic peripheral neuropat hy associated with type 2 diabetes mellitus 12/26/2016 Assessment & Plan (12/08/2024 10:27 AM CDT): Chronic problem. Reviewed foot care; needs to lotion daily. Aware to check feet nightly, not to go barefoot. Assessment & Plan (07/22/2024 11:14 AM CDT): Chronic problem. Currently engaged w/foot/ankle surgeon re: L great toe wound (healing per Mrs Sharlene). Has surgical shoe in place. Aware to check feet nightly & to not go barefoot. Assessment & Plan (2023 9:43 AM CDT): Chronic problem. Currently engaged w/foot/ankle surgeon re: L great toe wound (healing per Mrs Sharlene). Has surgical shoe in place. Aware to check feet nightly & to not go barefoot. Assessment & Plan (09/04/2023 10:29 AM CDT): Chronic problem. Currently engaged w/foot/ankle surgeon re: L great toe wound (healing per Mrs Sharlene). Has surgical shoe in place. Aware to check feet nightly & to not go barefoot. Assessment & Plan (12/19/2022 1:55 PM CDT): Chronic problem. Currently engaged w/foot/ankle surgeon re: L great toe wound (healing per Mrs Sharlene). Has surgical shoe in place. Aware to check feet nightly & to not go barefoot. Assessment & Plan (04/27/2020 5:12 PM LOOM FIXER HELPER): Appropriate foot care was discussed Patient also follows with podiatry Assessment & Plan (12/26/2016 11:20 AM CDT): Foot care discussed Needs better BG control. Type 2 diabetes mellitus wit h hyperglycemia, with long-term current use of insulin 10/24/2016 Assessment & Plan (12/08/2024 10:27 AM CDT): Chronic problem, A1c at goal 6.5% Has been decreasing Toujeo; down to 50 from 70 at [facility]. Will continue to drop Toujeo by 2 units weekly until lows resolve. Current medications: Metformin 1000mg twice daily Farxiga 10mg daily Mounjaro 10 mg weekly (will start 12.5 in next few weeks) Toujeo 50 units every morning Current medications: Metformin 1000mg twice daily Farxiga 10mg daily Mounjaro 10 mg weekly Toujeo 70 units every morning UTD on eye exams (07/01/24 mod PDR w/ME [facility]). UTD on labs. Discussed need to increase activity & watch diet. Strive for regular exercise (30min most days) and diet (get at least 4-5 servings of fruit and veggies daily, avoid processed foods, increase lean protein intake and decrease carb portions as well as fruit juices, regular soda & desserts). Watch carbs and simple sugars. Check blood sugars: Freestyle flex 2+. Check the feet daily for skin breakdown and infection. Assessment & Plan (07/22/2024 11:29 AM CDT): Chronic problem, A1cat goal and improved greatly from 8.2% 12/17/23 to now 6.6%. Has not had to take Lyumjev in several weeks. When she was taking it; would cause her to go low. Current medications: Metformin 1000mg twice daily Farxiga 10mg daily Mounjaro 10 mg weekly Toujeo 70 units every morning UTD on eye exams (07/01/24 mod PDR w/ME [facility]). Will update labs. Verified that she uses mychart. Aware to check results/results letter in ICU [facility]. Will contact by phone if needed. Discussed need to increase activity & watch diet. Strive for regular exercise (30min most days) and diet (get at least 4-5 servings of fruit and veggies daily, avoid processed foods, increase lean protein intake and decrease carb portions as well as fruit juices, regular soda & desserts). Watch carbs and simple sugars. Check blood sugars: Freestyle flex 2. Check the feet daily for skin breakdown and infection. Assessment & Plan (2023 10:09 AM CDT): Chronic problem, not at goal but stable. A1c 8.2% Discussed with [facility]: Increase water intake, increase LEAN protein (Premier protein drinks if not enough protein in diet), increase activity (weight lifting will greatly). Look up exercises on your smart TV ([employer]). Current medications: Metformin 1000mg twice daily (recently restart) Farxiga 10mg daily Mounjaro 10 mg weekly (has been giving 2 of her 5mg injections) Toujeo 70 units every morning Lyumjev 10-20 units before breakfast, 30-40 units before dinner (does not take if she does not eat) UTD on eye exams (12/10/23 [facility]). Letter sent to get copy report. UTD on labs. Discussed need to increase activity & watch diet. Strive for regular exercise (30min most days) and diet (get at least 4-5 servings of fruit and veggies daily, avoid processed foods, increase lean protein intake and decrease carb portions as well as fruit juices, regular soda & desserts). Watch carbs and simple sugars. Check blood sugars: Freestyle flex 2. Check the feet daily for skin breakdown and infection. Assessment & Plan (09/04/2023 10:52 AM CDT): Chronic problem, not at goal; worsening. A1c increased from 7.7% 04/28/23 to now 8.2% Stopped metformin before 04/2023 appt & does not wish to restart. Discussed adding glipizide if no improvement in A1c at next appt. Was recently in hospital for PNA; rec'd steroids, IVF. A1c may be skewed d/t that as FSL showing GMI 7.3% for last 2 weeks. [facility] able to get the Mounjaro 7.5mg-- I don't want to have her take 3 shots at a time to total 7.5mg weekly. Increase Toujeo to 60 units every morning. Current medications: Farxiga 10mg daily Mounjaro 5mg weekly Toujeo 60 units every morning Lyumjev 10-20 units before breakfast, 30-40 units before dinner (does not take if she does not eat) UTD on eye exams (12/17/22 [facility]). Will update MA/Cr & lipid today. Does not mychart. Verified phone #/address to contact re: results. Discussed need to increase activity & watch diet. Strive for regular exercise (30min most days) and diet (get at least 4-5 servings of fruit and veggies daily, avoid processed foods, increase lean protein intake and decrease carb portions as well as fruit juices, regular soda & desserts). Watch carbs and simple sugars. Check blood sugars: Freestyle flex 2. Check the feet daily for skin breakdown and infection. Assessment & Plan (04/30/2023 7:53 PM LOOM FIXER HELPER): A1C 7.7. Reports she is on metformin, glargine 70U and lispro sliding scale. Last seen by endocrine on 04/24. Plans to switch Bydureon to Mounjaro (prescribed outpt by endo but still not received). - Hold home oral meds - Continue glargine at reduced dose 40U, increase as needed. BG overall stable - Continue SSI. Assessment & Plan (04/24/2023 1:00 PM LOOM FIXER HELPER): Hba1c was Lab Results Component Value Date HGBA1C 7.7 04/24/2023 today, indicating suboptimal DM control Goal Hba1c under 7 and blood glucose level in the 120-160 range was explained Low carb diet and daily aerobic and /or resistant exercise were advised Prevention and treatment of hyypoglcyemia were discussed with the patient Blood glucose monitoring : FSL Adjustment to medications: Will try to switch from Bydureon to Mounjaro. Prescription sent I also recommended the patient to restart the metformin Assessment & Plan (12/19/2022 1:56 PM CDT): Chronic problem, not at goal; worsening. A1c dropped from 8.2% 07/2022 to now 7.8% Current medications: Metformin 1000mg twice daily with meals Farxiga 10mg daily Bydureon 2mg weekly Toujeo 70 units every morning Lyumjev 30-40 units before breakfast, 40 units before dinner UTD on eye exams--seen at [facility] monthly for injections. Letter (2nd) sent to get copy of most recent DM eye exam. Will update MA/Cr & CMP today. Does not mychart. Verified phone #/address to contact re: results. Discussed need to increase activity & watch diet. Strive for regular exercise (30min most days) and diet (get at least 4-5 servings of fruit and veggies daily, avoid processed foods, increase lean protein intake and decrease carb portions as well as fruit juices, regular soda & desserts). Watch carbs and simple sugars. Check the feet daily for skin breakdown and infection. Assessment & Plan (08/01/2022 1:35 PM CDT): Chronic problem, not at goal; worsening. A1c increased from 8.0% 03/2022 to now 8.2% Has been eating poorly. Not exercising. Current medications: Metformin 1000mg twice daily with meals Farxiga 10mg daily Bydureon 2mg weekly Toujeo 70 units every morning Lyumjev 30-40 units before breakfast, 40 units before dinner Discussed need to increase activity & watch diet. Strive for regular exercise (30min most days) and diet (get at least 4-5 servings of fruit and veggies daily, avoid processed foods, increase lean protein intake and decrease carb portions as well as fruit juices, regular soda & desserts). Watch carbs and simple sugars. Check the feet daily for skin breakdown and infection. Will update lipid panel today. Will update labs today. Verified phone #/address to contact re: results. UTD on eye exams--seen at [facility] monthly for injections. Letter sent to get copy of most recent DM eye exam. Assessment & Plan (04/11/2022 11:23 AM LOOM FIXER HELPER): Chronic problem, not at goal. Mounjaro was not covered. Will try switching Bydureon to either Ozempic or Trulicity to see if more weight benefit. I sent in Ozempic 1 mg and she'll let us know if not covered. Work on dosing aC with insulin and limiting simple carb intake at the meals. In evening if <120 at HS then eat a small 15 gram snack at HS. Assessment & Plan (12/06/2021 4:49 PM CDT): Hba1c was Lab Results Component Value Date HGBA1C 8.0 12/06/2021 today, indicating Inadequate DM control Goal Hba1c and blood glucose explained Diet and exercise were advised Prevention and treatment of hyypoglcyemia were discussed with the patient Blood glucose monitoring : FSL Adjustment to medications: Stay on Toujeo , 70 units Continue Lyumjev , current dose Add 10 more units for dinner Hold on Bydureon Start Mounjaro , 2.5 mg weekly for 4 weeks Then continue with 5 mg weekly ( take 2 injections at a time, of the 2.5 mg pens ) Call me in about 4-6 wks, to let me know how you are doing with the Mounjaro. Assessment & Plan (08/30/2021 11:37 AM CDT): Chronic problem, slightly improving. Placed freestyle Flex today which should hopefully help with accountability. Continue same medication regimen. Increase activity as tolerated. Assessment & Plan (05/31/2021 10:36 AM LOOM FIXER HELPER): Chronic problem, not at goal. Start Flex CGM. We also had a long discussion about seeing a counselor as her main issue is behavioral. She is open to this and had already been considering, and has someone she will reach out to. Work on lowering sugar intake. Assessment & Plan (10/26/2020 1:21 PM CDT): Hba1c was Lab Results Component Value Date HGBA1C 8.0 (A) 10/26/2020 today, indicating inadequate DM control Goal blood sugars in the 120-150 range , with Hb1c under 7.0 % was explained 1800 calorie, consistent carb diet recommended. No more than 30-45 grams of carbs per meal recommended, as well as avoiding high concentrated sweet drinks . 25-45 min daily exercise, combining both aerobic and resistance exercise recommended. The need to monitor blood glucose before meals and bedtime was discussed. Prevention and treatment of hyypoglcyemia discussed. Restart Bydureon. Take Lyumjev insulin before breakfast and dinner For sugars under 100, Take 20 units ( only if eating ) 100-150, take 25 units 151-200, take 30 units 201-250, take 35 units 251-300, take 40 units Over 301 , take 45 units Stay on Toujeo, 70 units daily ( in the morning ) Assessment & Plan (04/27/2020 5:12 PM LOOM FIXER HELPER): Hba1c was Lab Results Component Value Date HGBA1C 7.1 04/27/2020 today, indicating suboptimal DM control Goals blood sugars of 120-160 and Hba1c under 7 % was explained. 1800 calorie, consistent carb diet recommended, no more than 3-45 grams of carbs per meal, avoiding concentrated sweet drinks and rapid absorption carbs. 25-45 min daily aerobic and resistance exercise recommended Prevention and treatment of hyypoglcyemia discussed. Blood glucose monitoring with fingers sticks. Continue current regimen, including Bydureon, Farxiga, Lantus and Humalog insulin Assessment & Plan (01/13/2020 2:30 PM CDT): A1c 7.4. Continue Toujeo 60 units. Suspect lack of attention to diet and not using consistent Humalog plan is contributing to pc excursions. Provided with specific Humalog plan to use based on current dosing. 14 unts ac with additional CF150- 200 take 1 201-250 2 251-300 add 4 300 add 6 Needs to be specific about dose in order to evaluate pattern properly. Continue metformin, Farxiga and Bydureon. Assessment & Plan (10/07/2019 12:37 PM CDT): Hba1c was Lab Results Component Value Date HGBA1C 7.9 10/07/2019 today, indicating inadequate DM control 1800 calorie, consistent carb diet recommended. No more than 30-45 grams of carbs per meal recommended, as well as avoiding high concentrated sweet drinks . 25-45 min daily exercise, combining both aerobic and resistance exercise recommended. The need to monitor blood glucose before meals and bedtime was discussed. Prevention and treatment of hyypoglcyemia discussed. Stop Glimepiride Restart Farxiga Start Bydureon, 2 mg once a week. Assessment & Plan (07/08/2019 10:19 AM CDT): BG mostly acceptable by report. Higher numbers d/t food choices. Appropriate fruit serving size reviewed. Increase fluids for constipation. Can increase Toujeo by 1-2 units weekly to keep FBG at goal. Will defer Ozempic at this time d/t constipation and lack of access to samples. BG goals, sick day rules reviewed. Assessment & Plan (04/01/2019 1:26 PM LOOM FIXER HELPER): A1c increased 7.6. FBG more elevated. Increase Toujeo by 2 units q 5 days to goal. Restart Ozempic 0.25 x 4 weeks then 0.5 weekly. Assessment & Plan (12/22/2018 3:33 PM CDT): Add Trulicity Lower Toujeo by 5-10 units if BG persistently under 120 Assessment & Plan (10/09/2018 1:38 PM CDT): A1c 6.7. BG mostly in range with rare lows. Advised If you start to have lower sugars after dinner, then reduce the dinner dose of glimepiride to 2 mg. Assessment & Plan (06/25/2018 1:02 PM CDT): Hba1c was Lab Results Component Value Date HGBA1C 7.7 06/25/2018 today, indicating suboptimal DM control 1800 calorie, consistent carb diet recommended 25-45 min daily exercise, combining both aerobic and resistance exercise recommended. The need to monitor blood glucose before meals and bedtime was discussed. Restart Ozempic Prevention and treatment of hyypoglcyemia discussed. Assessment & Plan (04/23/2018 10:43 AM LOOM FIXER HELPER): Hba1c was Lab Results Component Value Date HGBA1C 7.8 04/23/2018 today, indicating suboptimal DM control 1800 calorie, consistent carb diet recommended 25-45 min daily exercise, combining both aerobic and resistance exercise recommended. The need to monitor blood glucose before meals and bedtime was discussed. Start Ozempic Prevention and treatment of hyypoglcyemia discussed. Assessment & Plan (01/01/2018 10:05 AM CDT): A1c 7.5. Advised to increase Toujeo by 2 units weekly until FBG at goal. If she continues to need max Humalog at meals then, will adjust Humalog. Likely diet related. Continue other medications for DM. OK to take Miralax for constipation. Assessment & Plan (10/21/2017 10:42 AM CDT): Hba1c was Lab Results Component Value Date HGBA1C 7.7 10/21/2017 today, indicating suboptiomal DM control 1800 calorie, consistent carb diet recommended 30 min daily exercise, combining both aerobic and resistance exercise is strongly recommended and needed as part of diabetes management plan. The need to monitor blood glucose before meals and bedtime was discussed. Take prandial insulin before meals based on carb intake and blood glucose readings. Prevention and treatment of hyypoglcyemia discussed. Start Bydureon, once a week Assessment & Plan (07/25/2017 10:39 AM CDT): A1c 7.5. No change to insulin. Advised to take glimepiride with first meal of the day. BG goals reviewed and impact of elevated BG on wound healing reviewed. Needs to see ophthalmology and have labs drawn. Assessment & Plan (04/10/2017 2:01 PM LOOM FIXER HELPER): A1c improved 7.2, weight increased. Increase Farxiga to 10 mg q am. Needs to schedule dilated eye exam. Continue follow up with wound center. Assessment & Plan (12/26/2016 11:19 AM CDT): Hba1c was 7.9 today, indicating suboptimal DM control 1800 calorie, consistent carb diet recommended 30 min daily exercise, combining both aerobic and resistance exercise is strongly recommended and needed as part of diabetes management plan. The need to monitor blood glucose before meals and bedtime was discussed. Take prandial insulin before meals based on carb intake and blood glucose readings. Prevention and treatment of hyypoglcyemia discussed. Add Farxiga, 5 mg daily Assessment & Plan (10/24/2016 1:01 PM CDT): A1c 7.6. Instructed to increase Toujeo by 2 units weekly until FBG < 150, then send in BG log for adjustment to plan. If she is unable to afford copay on insurance, will need to resume using N and R. Essential hypertension 10/24/2016 Assessment & Plan (04/29/2023 8:56 AM LOOM FIXER HELPER): - Continue home amlodipine Assessment & Plan (04/24/2023 1:00 PM LOOM FIXER HELPER): Chronic, well-controlled Continue amlodipine Assessment & Plan (12/19/2022 1:20 PM CDT): Chronic problem; controlled on current Lisinopril 20mg daily, amlodipine 10mg daily. No changes at this time. Assessment & Plan (08/01/2022 1:03 PM CDT): Chronic problem; controlled on current Lisinopril 20mg daily, amlodipine 10mg daily. No changes at this time. Assessment & Plan (04/11/2022 11:22 AM LOOM FIXER HELPER): Chronic problem, improved on recheck. Continue amlodipine and lisinopril. Assessment & Plan (12/06/2021 4:50 PM CDT): Goal blood pressure is less than 140/85 Low salt diet was discussed andd recommended The importance of daily aerobic exercise was also emphasized. Continue current meds, including HUSEYIN-I or ARB, e.g. Check GFR Assessment & Plan (08/30/2021 11:35 AM CDT): Chronic problem, improved on recheck. No medication changes. Assessment & Plan (05/31/2021 10:35 AM LOOM FIXER HELPER): Controlled on current medications, no changes. Assessment & Plan (01/13/2020 2:30 PM CDT): Controlled on current medications. Continue plan. Assessment & Plan (10/07/2019 12:37 PM CDT): Goal blood pressure is less than 140/85 Low salt diet recommended Daily aerobic exercise Assessment & Plan (07/08/2019 9:59 AM CDT): Check home BP readings. Goals reviewed Assessment & Plan (04/01/2019 1:24 PM LOOM FIXER HELPER): Controlled on current medications. Continue plan. Assessment & Plan (12/22/2018 3:33 PM CDT): Goal blood pressure is less than 140/85 Low salt diet recommended Daily aerobic exercise Continue current meds, including HUSEYIN-I or ARB Check microalbumin Assessment & Plan (10/09/2018 1:37 PM CDT): Controlled on current medications. Assessment & Plan (06/25/2018 1:02 PM CDT): Goal blood pressure is less than 140/85 Low salt diet recommended Daily aerobic exercise Continue current meds, including HUSEYIN-I or ARB Assessment & Plan (04/23/2018 10:43 AM LOOM FIXER HELPER): Goal blood pressure is less than 140/85 Low salt diet recommended Daily aerobic exercise Continue current meds, including HUSEYIN-I or ARB Assessment & Plan (01/01/2018 10:06 AM CDT): Controlled on current medications. Assessment & Plan (10/21/2017 10:43 AM CDT): Goal blood pressure is less than 140/85 Low salt diet recommended Daily aerobic exercise Continue current meds, including HUSEYIN-I or ARB Check microalbumin Assessment & Plan (07/25/2017 10:36 AM CDT): Controlled on current medications. Assessment & Plan (04/10/2017 2:01 PM LOOM FIXER HELPER): Controlled on current medications. Assessment & Plan (12/26/2016 11:14 AM CDT): Goal blood pressure is less than 140/85 Low salt diet recommended Daily aerobic exercise Continue current meds. Assessment & Plan (10/24/2016 1:02 PM CDT): Controlled on current medications. Closed fracture of upper extremity 05/29/2015 Resolved Problems Problem Noted Date Diagnosed Date Resolved Date Body mass index 40.0-44.9, adult ([facility]) 08/30/2021 08/01/2022 Hyperlipidemia 10/24/2016 08/01/2022 Assessment & Plan (07/25/2017 10:36 AM CDT): Advised that she needs to have lipid panel done Assessment & Plan (04/10/2017 2:01 PM LOOM FIXER HELPER): Will obtain labs from PCP Assessment & Plan (12/26/2016 11:19 AM CDT): Goal of treatment , LDL cholesterol less than 100 ( less than 70 in patients with history of heart attacks and / or strokes ) NonHDL cholesterol goal less than 130 ( less than 100 in patients with history of heart attacks and / or strokes ) Check lipid profile Continue statin therapy Assessment & Plan (10/24/2016 1:01 PM CDT): Check labs. Morbid obesity 10/24/2016 08/01/2022 Assessment & Plan (10/26/2020 1:21 PM CDT): Diet and exercise Phentermine Assessment & Plan (04/27/2020 5:13 PM LOOM FIXER HELPER): Diet and exercise Continue phentermine Assessment & Plan (01/13/2020 2:17 PM CDT): Importance of following diet and exercising discussed. Assessment & Plan (10/07/2019 12:38 PM CDT): Diet and exercise were discussed. 1200 Calorie diet advised 45-60 min aerobic / resistance exercise most days of the week recommended. Phentermine Assessment & Plan (07/08/2019 9:58 AM CDT): Importance of following diet and exercising discussed. Assessment & Plan (04/01/2019 1:24 PM LOOM FIXER HELPER): Importance of following diet and exercising discussed. Assessment & Plan (12/22/2018 3:33 PM CDT): Diet / exercise Continue Phentermine Assessment & Plan (10/09/2018 1:36 PM CDT): Importance of following diet and exercising discussed. \ Assessment & Plan (06/25/2018 1:03 PM CDT): Diet and exercise were discussed. 1200 Calorie diet advised 45-60 min aerobic / resistance exercise most days of the week recommended. Bariatric surgery medically indicated ; pt declines Restart Phentermine Assessment & Plan (04/23/2018 10:45 AM LOOM FIXER HELPER): Diet and exercise were discussed. 1200 Calorie diet advised 45-60 min aerobic / resistance exercise most days of the week recommended. Bariatric surgery medically indicated ; not covered by insurance. Will start Phentermine Assessment & Plan (01/01/2018 10:03 AM CDT): Importance of following diet and exercising discussed. Likely not being as careful with diet as she thinks. Provided with guidelines for calories and carbs per meal. Assessment & Plan (07/25/2017 10:36 AM CDT): Needs to rely on reducing portion size for wt loss as exercise is limited. Assessment & Plan (04/10/2017 2:02 PM LOOM FIXER HELPER): Importance of following diet and exercising discussed. Assessment & Plan (10/24/2016 1:03 PM CDT): Needs to be more diligent with diet and exercise. Encounters Date Type Department Care Team Description 12/09/2024 Telephone [facility] Diabetes and Endocrinology [address] [place] [phone] Toma Arndt NP Med Refill (Metformin; Mounjaro) 12/08/2024 10:00 AM CDT Office Visit [facility] Diabetes and Endocrinology [address] [place] [phone] Toma Arndt NP Type 2 diabetes mellitus with hyperglycemia, with long-term current use of insulin (HCC) (Primary Dx); Hypertension associated with type 2 diabetes mellitus (HCC); Hyperlipidemia associated with type 2 diabetes mellitus (HCC); Diabetic peripheral neuropathy associated with type 2 diabetes mellitus (HCC) 11/04/[address] [facility] [address] [phone] Toma Arndt NP Med Refill (Mounjaro) 10/28/2024 Telephone [facility] Diabetes and Endocrinology [address] [place] [phone] Toma Arndt NP [employer] (SWO FSL 2+ [place]) from Last 3 Months Surgical History Surgery Date Site/Laterality Comments TOE AMPUTATION 06/28/2016 Right REPLACEMENT TOTAL KNEE BILATERAL 12/31/2018 Bilateral TOE AMPUTATION 06/06/2023 [facility] - followed by admission due to infection following sugery Medical History Medical History Date Comments Hx Other Medical 1978 tailbone; Comme nts: [facility] 03/12/2016 - Hx Other Medical CHF; Comments: [facility] 03/12/2016 - Cancer of coccyx (HCC) 1978 Asthma Type 2 diabetes mellitus Pneumonia 08/25/2023 [facility] Family History Medical History Relation Name Comments Kidney failure Brother Diabetes Mother's Brother Relation Name Status Comments Brother Mother's Brother (Age 70) Social History Tobacco Use Types Packs/Day Years Used Date Smoking Tobacco: Never Smokeless Tobacco: Never Alcohol Use Standard Drinks/Week Comments No 0 (1 standard drink = 0.6 oz pur e alcohol) PHQ-2 Answer Date Recorded PHQ-2 Total Score (If total score is 3 or more points, staff should administer the PHQ-9) 0 08/01/2022 Personal Safety Answer Date Recorded Have you ever been in or are you currently in a harmful physical or emotional relationship or is someone making you feel afraid or unsafe? Denies 04/29/2023 Comments No Sex and Gender Information Value Date Recorded Sex Assigned at Not on file Legal Sex Female 11:48 AM LOOM FIXER HELPER Gender Identity Not on file Sexual Orientation Not on file Obstetrics History Last Filed Vital Signs Vital Sign Reading Time Taken Comments Blood Pressure 136/80 12/08/2024 9:51 AM CDT Pulse 81 12/08/2024 9:51 AM CDT Temperature 36.4 C (97.5 F) 05/01/2023 8:06 AM LOOM FIXER HELPER Respiratory Rate 18 12/08/2024 9:51 AM CDT Oxygen Saturation 92% 05/01/2023 8:06 AM LOOM FIXER HELPER Inhaled Oxygen Concentration - - Weight 97.8 kg (215 lb 8 oz) 12/08/2024 9:51 AM CDT Height 162.6 cm (5' 4.02) 12/08/2024 9:51 AM CD T Body Mass Index 36.97 12/08/2024 9:51 AM CDT Plan of Treatment Health Maintenance Due Date Last Done Comments Breast Cancer Screening-Mammogram 1965 Cervical Cancer Screening 1965 Colon Cancer Screening-Colonoscopy 1965 Hepatitis C Screening 1965 DTaP/Tdap/Td Vaccine (1 - Tdap) 12/16/1974 Hepatitis B Screening 12/16/1981 Regular Well Visit/Exam 18-64 12/16/1981 Pneumococcal vaccine <65 (1 of 2 - PCV) 12/16/1982 Zoster Vaccine (2 of 3) 05/27/2022 04/01/2022 Depression Screening 08/02/2023 08/01/2022, 12/06/2021, 05/31/2021, Additional history exists Influenza Vaccine (#1) 2024 , 12/22/2019, 12/22/2019, Additional history exists Hemoglobin A1C 06/07/2025 12/08/2024, 05/0 03/2024, 2023, Additional history exists Foot Exam 07/22/2025 07/22/2024, 061 05/2023, 08/01/2022, Additional history exists Lipid Panel 07/22/2025 07/22/2024, 06/1 05/2023, 08/01/2022, Additional history exists eGFR 07/22/2025 07/22/2024, 02/0 09/2023, 04/28/2023, Additional history exists Albumin Creatinine Ratio, Urine 07/26/2025 07/26/2024, 09/04/2023, 12/19/2022, Additional history exists Dilated Eye Exam 07/01/2026 07/01/2024, , 2022, Additional history exists Procedures Procedure Name Priority Date/Time Associated Diagnosis Comments POCT HEMOGLOBIN A1C Routine 12/08/2024 1 0:07 AM CDT Type 2 diabetes mellitus with hyperglycemia, with long-term current use of insulin (HCC) POCT GLUCOSE Routine 12/08/2024 9:58 AM CDT Type 2 diabetes mellitus with hyperglycemia, with long-term current use of insulin (HCC) ALBUMIN CREATININE RATIO, URINE Routine 07/26/2024 8:14 AM CDT Type 2 diabetes mellitus with hyperglycemia, with long-term current use of insulin (HCC) EGFR Routine 07/22/2024 11:38 AM CDT Type 2 diabetes mellitus with hyperglycemia, with long-term current use of insulin (HCC) Hypertension associated with type 2 diabetes mellitus (HCC) LIPID PANEL Routine 07/22/2024 11:38 AM CDT Type 2 diabetes mellitus with hyperglycemia, with long-term current use of insulin (HCC) Hyperlipidemia associated with type 2 diabetes mellitus (HCC) HM DIABETES EYE EXAM Routine 07/01/2024 from Last 3 Months or Most Recently Relevant to Health Maintenance Results * (ABNORMAL) POCT hemoglobin A1c (12/08/2024 10:07 AM CDT) Hemoglobin A1C, POC 6.5(A) 4.0 - 5.6 % Blood 12/08/2024 10:0 7 AM CDT Tomaching Arndt NP POINT OF CARE TEST ORDERA BLES Final Result * POCT glucose (12/08/2024 9:58 AM CDT) [facility] Glucose Blood, POC 113 Normal Fasting 70 - 100, Random <200 mg/dL Blood 12/08/2024 9:58 AM CDT us Tomaching Arndt WORKFORCE DEVELOPMENT VICE PRESIDENT POINT OF CARE TEST ORDERA BLES Final Result * (ABNORMAL) Albumin Creatinine Ratio, Urine (07/26/2024 8:14 AM CDT) [facility] Albumin Ur 19.6 mg/L Comment: Interpretive Data No reference range established. Current interpretive data was last revised 2018. Creatinine Ur 56.8 mg/dL EROS SINGER Comment: Interpretive Data No reference range established. Current interpretive data was last revised 2018. Albumin Creatinine Ratio, Ur 35(H) 1 - 29 mg/g EROS SINGER Urine 07/26/2024 8:14 AM CDT 07/26/2024 2:41 PM CDT us Tomaching Arndt WORKFORCE DEVELOPMENT VICE PRESIDENT LAB URINE ORDERABLES Leonor l Result EROS [id number] [address] [facility] [place] [address] * eGFR (07/22/2024 11:38 AM CDT) [facility] eGFR >90 >=60 mL/min/1. 73 m2 Comment: Interpretive Data Reference Interval Normal >/= 90 mL/min/1.73m2 Mildly decreased* 60 - 89 mL/min/1.73m2 Mildly to moderately decreased 45 - 59 mL/min/1.73m2 Moderately to severely decreased 30 - 44 mL/min/1.73m2 Severely decreased 15 - 29 mL/min/1.73m2 Kidney Failure < 15 mL/min/1.73m2 *Relative to young adult level Estimated glomerular filtration rate is determined by the 2020 CKD-EPI equation recommended by the National Kidney Foundation (A Unifying Approach to GFR Estimation: Recommendations of the NKF-ASK Task Force on Reassessing the Inclusion of Race in Diagnosing Kidney Disease, JASN 202). The CKD-EPI equation should not be used for patients with unstable renal function and has not been validated in children and those over 70. Current interpretive data was last reviewed 2021. Blood 07/22/2024 11:3 8 AM CDT 07/22/2024 9:34 PM CDT us Toma Arndt NP LAB BLOOD ORDERABLES Leonor negro Result EROS SINGER [id number] [address] [place] [address] * Lipid panel (07/22/2024 11:38 AM CDT) Cholesterol 134 30 - 199 mg/dL Comment: Interpretive Data Ages < or = 19 years Acceptable: <170 mg/dL Borderline high: 170-199 mg/dL High: >or= 200 mg/dL Ages > or = 20 years Desirable: <200 mg/dL Borderline high: 200-239 mg/dL High: >or= 240 mg/dL Literature References: 1. Expert Panel on Integrated Guidelines for Cardiovascular Health and Risk Reduction in Children and Adolescents. Pediatrics 2011;128:S213 2. NCEP Expert Panel. Circulation 2004;110:227 Current Interpretive Data was last revised on 2017. Triglycerides 69 <=149 mg/dL EROS SINGER Comment: Interpretive Data Ages < or = 9 years Acceptable: <75 mg/dL Borderline high: 75-99 mg/dL High: >or= 100 mg/dL Ages 10 to 20 years Acceptable: <90 mg/dL Borderline high: 90-129 mg/dL High: >or= 130 mg/dL Ages > or = 20 years Desirable: <150 mg/dL Borderline high: 150-199 mg/dL High: 200-499 mg/dL Very high: >or= 499 mg/dL Literature References: 1. Expert Panel on Integrated Guidelines for Cardiovascular Health and Risk Reduction in Children and Adolescents. Pediatrics 2011;128:S213 2. NCEP Expert Panel. Circulation 2004;110:227 Current Interpretive Data was last revised on 2017. HDL 53 >=40 mg/dL EROS SINGER Comment: Interpretive Data Ages < or = 19 years Acceptable: >45 mg/dL Borderline low: 40-45 mg/dL Low: <40 mg/dL Ages > or = 20 years Desirable: >or= 60 mg/dL Low: <40 mg/dL Literature References: 1. Expert Panel on Integrated Guidelines for Cardiovascular Health and Risk Reduction in Children and Adolescents. Pediatrics 2011;128:S213 2. NCEP Expert Panel. Circulation 2004;110:227 Current Interpretive Data was last revised on 2017. LDL, calculated 67 <=129 mg/dL EROS SINGER Comment: Interpretive Data Ages < or = 19 years Acceptable: <110 mg/dL Borderline high: 110-129 mg/dL High: >or= 130 mg/dL Ages > or = 20 years Optimal: <100 mg/dL Near optimal: 100-129 mg/dL Borderline high: 130-159 mg/dL High: >160 mg/dL Calculated using the Zack LDL-C estimating equation. This equation was implemented on 2023. Prior to this date LDL-C was estimated using the Friedewald equation. Literature References: 1. Expert Panel on Integrated Guidelines for Cardiovascular Health and Risk Reduction in Children and Adolescents. Pediatrics 2011;128:S213 2. NCEP Expert Panel. Circulation 2004;110:227 3. Zack Vargas et al. KATJA Cardiol. 2019July 22;5(5):540-548. doi: 10.1001/jamacardio.2020.0013 Current Interpretive Data was last revised on 2023. Non-HDL Cholesterol 81 mg/dL EROS SINGER Comment: Interpretive Data Ages < or = 19 years Acceptable: <120 mg/dL Borderline high: 120-144 mg/dL High: >145 mg/dL Ages > or = 20 years When triglycerides are >200 mg/dL, Non-HDL cholesterol is a secondary target of therapy with treatment goals that are 30 mg/dL greater than the LDL cholesterol target. Literature References: 1. Expert Panel on Integrated Guidelines for Cardiovascular Health and Risk Reduction in Children and Adolescents. Pediatrics 2011;128:S213 2. NCEP Expert Panel. Circulation 2004;110:227 Current Interpretive Data was last revised on 2017. Chol/HDL ratio 3 EROS SINGER Blood 07/22/2024 11:3 8 AM CDT 07/22/2024 9:24 PM CDT us Toma Arndt NP LAB BLOOD ORDERABLES Leonor l Result EROS SINGER [address] [address] [place] [address] * (ABNORMAL) DIABETES EYE EXAM (07/01/2024) SCRIBED DIABETIC DILATED EYE EXAM Abnormal 07/01/2024 us Historical Provider HEALTH MAINTENANCE Edited Result - Final from Last 3 Months or Most Recently Relevant to Health Maintenance Insurance MEDICARE [facility] [place] [address] MEDICARE MEDICARE [facility] CMR Care Teams Internal Audit Senior Manager Relationship Specialty [place] [id number] [address] [facility] [address] [place] [address] PCP - General Family Medicine 04/11/22 [place] [id number] [address] [facility] [address] [place] [address] Consulting Physician Endocrinology Diabetes & Metabolism 04/21/18
--- OUTSIDE RECORDS SUMMARY | 2024-12-15 14:08 | XMS_ITS | Clinical Summary ---
Author Organization [facility] Address [address] [place] [address] Care Team Providers Care Catering Operations Manager Name Role Phone Unavailable Primary Care Provider Unavailabl e Allergies Active Allergy Reactions Criticality Noted Date Comments Cefuroxime Axetil Other (See Comments) 11/11/19 23 Cause extreme joint pain Medications No known medications Active Problems No known active problems Social History Tobacco Use Types Packs/Day Years Used Date Smoking Tobacco: Never Comments No Sex and Gender Information Value Date Recorded Sex Assigned at Not on file Legal Sex Female 10:11 AM CDT Gender Identity Not on file Sexual Orientation Not on file Last Filed Vital Signs Vital Sign Reading Time Taken Comments Blood Pressure 122/75 11/10/2022 10:21 AM CDT Pulse 109 11/10/2022 10:21 AM CDT Temperature 36.9 C (98.5 F) 11/10/2022 10:21 AM CDT Respiratory Rate 18 11/10/2022 10:21 AM CDT Oxygen Saturation 95% 11/10/2022 10:21 AM CDT Inhaled Oxygen Concentration - - Weight 113.4 kg (250 lb) 11/10/2022 10:21 AM CDT Height 162.6 cm (5' 4) 11/10/2022 10:21 AM CDT Body Mass Index 42.91 11/10/2022 10:21 AM CDT Plan of Treatment Health Maintenance Due Date Last Done Comments DTAP/TDAP/TD VACCINES (1 - Tdap) 12/16/1982 HPV/Cotest (21-29) 12/16/1984 CERVICAL CANCER SCREENING 12/16/1993 HPV/Cotest (30-65) 12/16/1993 PAP SMEAR 12/16/1993 BREAST CANCER SCREENING 2003 COLORECTAL SCREENING 12/16/2008 Colorectal Cancer Screening 12/16/2008 FIT-DNA Q 3 years 12/16/2008 FIT/FOBT Q 1 year 12/16/2008 Flex Sig/CT Colonography Q 5 years 12/16/2008 ZOSTER VACCINE (1 of 2) 12/16/2013 INFLUENZA VACCINE (#1) 2024 RSV VACCINE (60+ or ) (1 - 1-dose 75+ series) 12/16/2038 HEPATITIS B VACCINES Aged Out No long er eligible based on patient's age to complete this topic Insurance MEDICARE
--- OUTSIDE RECORDS SUMMARY | 2024-12-15 14:09 | XMS_ITS | Clinical Summary ---
Author Organization [facility] Address [address] [place] [address] Care Team Providers Care Hired Help Name Role Phone Rylan Beltran MD Unavailable [phone] Arturo Walker DO Primary Care Provider [phone] Source Comments [facility],non-owned Affiliates and Associated Physician Practices is amultiple site organization consisting of ambulatory clinics and hospital sitesin [place], [place], [place] and [place]. This disclosure is being madepursuant to the Care Everywhere program and may not contain all information available regarding this patient. Last updated 17.[facility] Allergies Active Allergy Reactions Criticality Noted Date Comments Byetta Other nausea Cefuroxime Rash Medium Hydrocodone-Acetaminophen Nausea and/or Vomiting Medications * Be aware that medications may not be up to date on this document. Alwaysverify current medications with the patient. glimepiride (AMARYL) 4 MG tablet Take 1 tablet by mouth 2 times daily Active amLODIPine (NORVASC) 10 MG tablet Take 10 mg by mouth once daily 6 Active furosemide (LASIX) 40 MG tablet Take 40 mg by mouth once daily as needed 6 Active metFORMIN (GLUCOPHAGE) 1000 MG tablet Take 1 tablet by mouth 2 times daily with morning and evening meal Active simvastatin (ZOCOR) 10 MG tablet Take 10 mg by mouth once daily 6 Active ECHINACEA PO Take 760 mg by mouth Active DORZOLAMIDE HCL OP 1 drop by Ophthalmic route 2 times daily Apply 1 drop to each eye Active citalopram (CELEXA) 40 MG tablet Take 40 mg by mouth once daily Active GLUCOSAMINE SULFATE PO Take 1 tablet by mouth 2 times daily Active albuterol HFA (PROAIR HFA) 108 (90 Base) MCG/ACT inhaler INL 2 PUFFS PO Q 4 TO 6 H PRN 8 Active Calcium Carbonate-Ella min D (OYSTER SHELL/VITAMIN D) 600-125 MG-UNIT Take by mouth once daily Active Insulin Pen Needle (BD PEN NEEDLE RENETTA U/F) 32G X 4 MM MISC Use to inject insulin 4 times a day 9 Active Multiple Vitamins-Gaston als ([employer] WOMENS ACTIVE DAILY) TABS Take by mouth once daily Active Insulin Glargine (TOUJEO SOLOSTAR SC) Inject 47 Units subcutaneously once daily Active Insulin Lispro (HUMALOG PEN SC) Inject subcutaneously 2 times daily Sliding scale Active melatonin 10 MG capsule Take 30 mg by mouth nightly as needed for Insomnia Active Active Problems Problem Noted Date Diagnosed Date Primary osteoarthritis of left knee 09/02/2018 Primary osteoarthritis of right knee 09/02/2018 Dyslipidemia, goal LDL below 100 08/28/2018 Hyperlipidemia associated with type 2 diabetes chino adams 10/21/2017 Overview (10/28/2018): Last Assessment & Plan: Check lipid panel Hypertension associated with diabetes 10/24/2016 Overview (10/28/2018): Last Assessment & Plan: Controlled on current medications. Type 2 diabetes mellitus wit h hyperglycemia, with long-term current use of insulin 10/24/2016 Overview (10/28/2018): Last Assessment & Plan: A1c 6.7. BG mostly in range with rare lows. Advised If you start to have lower sugars after dinner, then reduce the dinner dose of glimepiride to 2 mg. Immunizations Immunization Administration Dates Next Due INFLUENZA VACCINE, QUADR. (F LUZONE; FLULAVAL; FLUARIX; AFLURIA QUADRIVALENT; 6MO+), 0.5 ML (IIV4) 01/01/2019,12/31/2018(Deferred: Discontinued by physician) Social History Tobacco Use Types Packs/Day Years Used Date Smoking Tobacco: Never Smokeless Tobacco: Never Alcohol Use Standard Drinks/Week Comments No 0 (1 standard drink = 0.6 oz pur e alcohol) Comments No Sex and Gender Information Value Date Recorded Sex Assigned at Not on file Legal Sex Female 6:13 AM RN CLINICAL DOCUMENTATION Gender Identity Not on file Sexual Orientation Not on file Last Filed Vital Signs Vital Sign Reading Time Taken Comments Blood Pressure 141/66 01/02/2019 7:56 AM CDT Pulse 93 01/02/2019 7:56 AM CDT Temperature 36.7 C (98.1 F) 01/02/2019 7:56 AM CDT Respiratory Rate 18 01/02/2019 7:56 AM CDT Oxygen Saturation 92% 01/02/2019 7:56 AM CDT Inhaled Oxygen Concentration - - Weight 103.9 kg (229 lb) 01/22/2019 9:51 AM CDT Height 162.6 cm (5' 4) 01/22/2019 9:51 AM CDT Body Mass Index 39.31 01/22/2019 9:51 AM CDT Plan of Treatment Health Maintenance Due Date Last Done Comments COLOGUARD (AGES 45-75) - COLON CA SCREENING 1963 COLON MONITORING 1963 COLONOSCOPY - COLON CA SCREENING 1963 CT COLONOGRAPHY - COLON CA SCREENING 1963 Colorectal Cancer Screening 1963 FIT - COLON CA SCREENING 1963 FLEX SIG - COLON CA SCREENING 1963 MAMMOGRAM 1963 MEDICARE AWV 12 MONTHS 1963 HIV SCREENING 12/16/1978 HEPATITIS C SCREENING 12/12/1981 DTAP/TDAP/TD VACCINES (1 - Tdap) 12/16/1982 PNEUMOCOCCAL VACCINE 50+ (1 of 2 - PCV) 12/16/1982 PAP SMEAR 12/16/1984 ZOSTER VACCINE (1 of 2) 12/16/2013 DIABETES RETINOPATHY SCREENING 10/28/2018 DIABETES-FOOT EXAM WITH MONOFILAMENT 10/28/2018 DIABETES-HGB A1C 09/30/2019 04/01/2019, 03/2018, 10/06/2018, Additional history exists DIABETES-SERUM CREATININE 01/02/20202018, 12/02/2018, 10/05/2018, Additional history exists Respiratory Syncytial Virus (RSV) Vaccine Pt: or over 60 yrs (1 - Risk 60-74 years 1-dose series) 2023 DEPRESSION SCREENING 03/24/2024 DIABETES - URINE PROTEIN SCREENING 03/24/2024 COVID-19 VACCINE (2023- season) 2024 INFLUENZA VACCINE (#1) 2024 9, 02/10/2018, 01/24/2017, Additional history exists HEPATITIS B VACCINE Aged Out No longe r eligible based on patient's age to complete this topic HIB VACCINE Aged Out No longer eligi ble based on patient's age to complete this topic HPV VACCINE Aged Out No longer eligi ble based on patient's age to complete this topic MENINGOCOCCAL (Group B) VACCINE SHARED DECISION-MAKING Aged Out No longer eligible based on patient's age to complete this topic MENINGOCOCCAL GROUPS A/C/Y/W VACCINE Aged Out No longer eligible based on patient's age to complete this topic Medical Devices Implanted Type Area Director Teen Post Device Identifier Shelf Expiration Date Model / Serial / Lot Clive Bone [place]-G Hv 40 Implanted:Qty: 1 on 10/05/2018 by Rylan Beltran MD at [facility] Left: Knee [employer] 01/21/2020 600-15-100 / / [id number] Cmpnt Ptlr 28mm 1 Pg Wire Ascnt Arcm Kn Implanted:Qty: 1 on 10/05/2018 by Rylan Beltran MD at [facility] Left: Knee [employer] 08/20/2023 [id number] / / [id number] Cmpnt Fem Kn Lt Cr Cmnt Prm Vngrd Intlk Implanted:Qty: 1 on 10/05/2018 by Rylan Beltran MD at [facility] Left: Knee [employer] 07/18/2028 [id number] / / [id number] Tray Tib 71mm Kn Cocr I Beam Implanted:Qty: 1 on 10/05/2018 by Rylan Beltran MD at [facility] Left: Knee [employer] 07/26/2028 [id number] / / [id number] Brng [id number] Vngrd Arcm Kn Ant Stab Implanted:Qty: 1 on 10/05/2018 by Rylan Beltran MD at [facility] Left: Knee [employer] 07/15/2023 [id number] / / [id number] Brng [id number] Vngrd Arcm Kn Ant Stab Implanted:Qty: 1 on 12/31/2018 by Rylan Beltran MD at [facility] Right: Knee [employer] 08/01/2023 [id number] / / [id number] Clive Bone [place]-G Hv 40/20 Implanted:Qty: 1 on 12/31/2018 by Rylan Beltran MD at [facility] Right: Knee [employer] 05/03/2020 600-15-100 / / [id number] Tray Tib 71mm Kn Cocr I Beam Implanted:Qty: 1 on 12/31/2018 by Rylan Beltrna MD at [facility] Right: Knee [employer] 12/01/2028 [id number] / / [id number] Cmpnt Fem Kn Rt Cr Cmnt Prm Vngrd Intlk Implanted:Qty: 1 on 12/31/2018 by Rylan Beltran MD at [facility] Right: Knee [employer] [id number] / / [id number] Cmpnt Ptlr 28mm 1 Pg Wire Ascnt Arcm Kn Implanted:Qty: 1 on 12/31/2018 by Rylan Beltran MD at [facility] Right: Knee [employer] [id number] / / Procedures Procedure Name Priority Date/Time Associated Diagnosis Comments BASIC METABOLIC PANEL (CALCIUM TOTAL) AM Draw 01/01/2019 2:36 AM CDT HEMOGLOBIN A1C Routine 10/06/2018 5:31 AM CDT from Last 3 Months or Most Recently Relevant to Health Maintenance Results * (ABNORMAL) BASIC METABOLIC PANEL (CALCIUM TOTAL) (01/01/2019 2:36 AM CDT) [facility] Glucose 176(H) 74 - 106 mg/dL 01/01/2019 5:46 AM CDT [facility] Sodium 137 136 - 145 mmol/L 01/01/2019 5:46 AM CDT [facility] Potassium 3.8 3.5 - 5.1 mmol/L 01/01/2019 5:46 AM CDT [facility] Chloride 101 98 - 107 mmol/L 01/01/2019 5:46 AM CDT [facility] CO2 27 23 - 31 mmol/L 01/01/2019 5:46 AM CDT [facility] Calcium 9.4 8.4 - 10.2 mg/dL 01/01/2019 5:46 AM CDT [facility] Anion Gap 9 8 - 16 mmol/L 01/01/2019 5:46 AM CDT [facility] BUN 14 9.8 - 20.1 mg/dL 01/01/2019 5:46 AM CDT [facility] Creatinine 0.70 0.57 - 1.11 mg/dL 01/01/2019 5:46 AM CDT [facility] eGFR by MDRD >60 >60 mL/min/1.7 3m2 01/01/2019 5:46 AM CDT [facility] eGFR by MDRD >60 >60 mL/min/1.7 3m2 01/01/2019 5:46 AM CDT [facility] Blood BLOOD SPECIMEN / Unknown Venipuncture / Unknown 01/01/2019 2:36 AM CDT 01/01/2019 4:39 AM CDT us Anabela Ruvalcaba MD LAB - CHEMISTRY ORDERABLES Leonor l Result [facility] [address] [place] [address] * (ABNORMAL) HEMOGLOBIN A1C (10/06/2018 5:31 AM CDT) Hemoglobin A1c 6.2(H) 4.0 - 6.1 % 10/06/2018 5:52 AM CDT [facility] Estimated Average Glucose 131 mg/dL 10/06/2018 5:52 AM CDT [facility] Blood BLOOD SPECIMEN / Unknown Venipuncture / Unknown 10/06/2018 5:31 AM CDT 10/06/2018 5:38 AM CDT Narrative [facility] - 10/06/2018 5:52 AM CDT Attention clinician: Reference Range has changed. us Anabela Ruvalcaba MD LAB - CHEMISTRY ORDERABLES Leonor negro Result Performing Organization Address [facility]/State/[facility] Co de Phone Number [facility] [address] [place] [address] from Last 3 Months or Most Recently Relevant to Health Maintenance Insurance AET MEDICARE MEDICARE [facility]IC[facility] MEDICARE [facility] MEDICARE [facility] Advance Directives * Full Code (Latest Code Status on File) Date Activated Date Inactivated Comments 12/31/2018 12:40 PM 01/02/2019 3:08 PM * Full Code Date Activated Date Inactivated Comments 10/05/2018 10:50 AM 10/07/2018 4:58 PM Care Teams Hired Help Relationship Specialty Start Date End Date Arturo Walker DO [address] [place] [id number] PCP - General 04/25/22 [place] [id number] [address] Orthopedic Surgery 08/25/18
== END 2024-12-15 14:04 | disposition home or self-care (01) ==
LOC: ANHFOHIMG 14:06
PROVIDERS: PCP Student in an Organized Health Care Education/Training Program; Visit Provider Student in an Organized Health Care Education/Training Program
DX: Z12.31 Encounter for screening mammogram for malignant neoplasm of breast (principal)
CPT/HCPCS: 77063; 77067

== ENCOUNTER 2025-02-03 08:32 | Outpatient (CLI) | payer MEDICARE, OTHER, SELFPAY ==
[2025-02-03 14:09] LABS: Influenza A QL RT-PCR Negative (Negative); Influenza B QL RT-PCR Negative (Negative); RSV RNA, RT-PCR Negative (Negative); SARS-CoV-2 RNA PCR Negative (Negative)
== END 2025-02-03 08:33 | disposition home or self-care (01) ==
LOC: ANHGOSHLAB 08:33
PROVIDERS: PCP Student in an Organized Health Care Education/Training Program; Visit Provider Student in an Organized Health Care Education/Training Program
DX: R06.2 Wheezing (principal); R05.9 Cough, unspecified; Z20.822 Contact with and (suspected) exposure to COVID-19
CPT/HCPCS: 87637